=== PATIENT | female | born 1970 | race Caucasian/White ===

== ENCOUNTER 2022-08-18 01:43 | Inpatient (IN) ==
[2022-08-18] MEDS ORDERED: LACTATED RINGERS 1,000 ML IV ONE (01:54)
[2022-08-18 02:24] LABS: POC Calcium, Ionized 1.14 (1.16-1.32); POC Creatinine 0.8 (0.6-1.2); POC Potassium 4.2 (3.3-5.1)
[2022-08-18] MEDS ORDERED: VANCOMYCIN 1,500 MG in 0.9 % SODIUM CHLORIDE 500 ML IV ONE (02:26)
[2022-08-18] MEDS ORDERED: PIPERACILLIN SODIUM/TAZOBACTAM 3.375 GM in DEXTROSE 5% IN WATER 50 ML IV ONE (02:26)
[2022-08-18 02:55] LABS: Basophils # (Auto) 0.03 K/mcL (0.00-0.30); Basophils % (Auto) 0.2 % (0.0-2.0); Eosinophils # (Auto) 0 K/mcL (0.00-0.70); Eosinophils % (Auto) 0 % (0.0-7.0); Hematocrit 37.7 % (34.1-44.9); Hemoglobin 10.7 g/dL (11.2-15.7); Lymphocytes # (Auto) 0.55 K/mcL (1.50-4.80); Lymphocytes % (Auto) 4.3 % (15.5-49.0); Mean Cell Volume 90.2 fL (80.0-100.0); Mean Corpuscular HGB Conc 28.4 g/dL (31.0-36.0); Mean Platelet Volume 9.8 fL (8.8-12.5); Monocytes # (Auto) 0.37 K/mcL (0.10-0.90); Monocytes % (Auto) 2.9 % (1.0-12.0); Platelet Count 286 K/mcL (140-440); RBC 4.18 M/mcL (3.59-5.38); Red Cell Distribution Width 16.1 % (11.5-14.5); WBC 12.8 K/mcL (4.5-11.0)
--- NOTE | 2022-08-18 02:56 | XRay Report ---
CLINICAL INFORMATION: Fever COPD COMPARISON: 04/27/2006 TECHNIQUE: Portable FINDINGS: Moderate cardiomegaly is increased. The pulmonary vasculature is moderately distended and there is mild peribronchial vascular edema. Small right pleural effusion noted. IMPRESSION: Moderate CHF or volume overload. Note: If there is any clinical support for this diagnosis, consider diuretic trial and repeat two-view upright chest x-ray to better evaluate the lungs Interpreted and Authenticated by: Alexandro Tariq 08/18/22
[2022-08-18 03:11] LABS: ALT/SGPT 11 U/L (<40); AST/SGOT 12 U/L (<32); Albumin 3.5 gm/dL (3.2-5.2); Alkaline Phosphatase 134 U/L (39-117); Bilirubin,Direct 0.3 mg/dL (<0.3); Globulin 4.5 gm/dL (2.2-3.7)
[2022-08-18] MEDS ORDERED: ACETAMINOPHEN 325 MG TABLET PO ONE (03:29)
[2022-08-18] MEDS ORDERED: LABETALOL 5 MG/ML ML IV ONE (03:29)
[2022-08-18] MEDS ORDERED: oxyCODONE IR 5 MG TABLET PO ONE (04:07)
--- NOTE | 2022-08-18 04:21 | Emergency Department Note ---
Abdominal Pain HPI General Chief Complaint: Abdominal Pain Stated Complaint: sepsis Time Seen by Provider: 08/18/22 01:45 Source: patient and family Mode of arrival: wheelchair Limitations: no limitations History of Present Illness HPI Narrative: Narrative: This is a 52-year-old female with a history of rheumatoid and psoriatic arthritis, type 2 diabetes, hypertension, obesity, oxygen dependent presents to the emergency department with fever, weakness, worsening wounds to her lower extremity and diarrhea. Patient denies any abdominal pain. She reports chronic cough not significantly changed from her baseline. No new urinary changes. Patient's only medications she is taking currently is oxycodone 30 mg and bisoprololhydrochlorothiazide. Patient states that she has a history of MRSA infection. Patient states her symptoms have been going on for about the last week or so she did not want to come to the doctor but her partner noticed increased weakness and some intermittent confusion which he states is similar to when she had sepsis last so he brought her in for evaluation. Related Data Home Medications Medication Instructions Recorded Confirmed cetirizine 10 mg tablet 10 mg PO QDAY 04/20/18 08/18/22 oxycodone 30 mg tablet 30 mg PO Q4-6H PRN Pain 04/20/18 08/18/22 albuterol sulfate 90 mcg/actuation 2 puff inhalation Q6H PRN 05/13/21 08/18/22 aerosol inhaler (Proventil HFA) Shortness Of Breath hydrocortisone 1 % topical cream 1 applic topical BID PRN itching 05/13/21 08/18/22 (Anti-Itch (hydrocortisone)) ibuprofen 800 mg tablet 600 - 800 mg PO Q6 PRN Pain 05/13/21 08/18/22 metformin 500 mg tablet,extended 1,000 mg PO BID 05/13/21 08/18/22 release 24 hr nystatin 100,000 unit/gram topical 1 applic topical BID 05/13/21 08/18/22 cream ondansetron 4 mg disintegrating 4 mg PO .Q4-6H PRN Nausea 05/13/21 08/18/22 tablet magnesium hydroxide 400 mg/5 mL 30 ml PO QDAY PRN Constipation 08/18/22 08/18/22 oral suspension (Milk of Magnesia) Previous Rx's Medication Instructions Recorded ceftriaxone 2 gram solution for 2 g IV Q24H Wound infecti 12 days 08/24/22 injection #25 ea oxycodone 10 mg tablet 10 mg PO Q4H PRN Pain #30 tabs 08/24/22 Allergies Allergy/AdvReac Type Severity Reaction Status Date / Time Sulfa (Sulfonamide Allergy Mild Hives Verified 08/18/22 11:21 Antibiotics) Cyclobenzaprine Allergy Unknown Unknown Verified 08/18/22 10:20 morphine AdvReac Intermediate Hallucinati Verified 08/18/22 11:21 ons fentanyl AdvReac Mild Headache Verified 08/18/22 11:21 tramadol AdvReac Mild Headache Verified 08/18/22 11:21 Review of Systems ROS ROS Narrative: Narrative: PFSH Narrative Patient History Narrative: Narrative: Medical/Surgical/Family History All Active Problems (Updated 08/22/22 @ 17:53 by Jud Kirk MD) History of MRSA infection (Acute) Abscess of foot including toes (Acute) Bacteremia due to Streptococcus (Acute) Cellulitis (Acute) Sepsis (Acute) Heart murmur (Chronic) 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) Restrictive lung disease (Chronic) Anxiety disorder (Chronic) Dermatophytosis (Chronic) Dependence on supplemental oxygen (Chronic) Foot pain, right (Chronic) Bipolar disorder, unspecified (Chronic) High risk medication use (Chronic) Groin rash (Chronic) Paresthesia of both hands (Chronic) Sciatica (Chronic) Foot joint pain (Chronic) Hand joint pain (Chronic) Agoraphobia (Chronic) Migraine (Chronic) Osteoarthritis (Chronic) Thyroid nodule (Chronic) Atopic eczema (Chronic) Herpes simplex (Chronic) Tobacco use (Chronic) long term current use of non-steroidal anti-inflammatories (NSAID) (Chronic) long term (current) use of opiate analgesic (Chronic) Moderate major depression (Chronic) Lumbar radiculitis (Chronic) Degenerative disc disease, lumbar (Chronic) Degenerative disc disease, thoracic (Chronic) Primary generalized (osteo)arthritis (Chronic) Antinuclear factor positive (Chronic) Sicca syndrome (Chronic) Psoriatic arthritis (Chronic) Allergic rhinitis (Chronic) COPD (chronic obstructive pulmonary disease) (Chronic) GERD (gastroesophageal reflux disease) (Chronic) Hypothyroidism (Chronic) Aortic stenosis (Chronic) Diastolic dysfunction (Chronic) Hypertension (Chronic) Diabetes mellitus type II, uncontrolled (Chronic) Rheumatoid arthritis (Chronic) Medical History Agoraphobia Allergic rhinitis Antinuclear factor positive Anxiety disorder Aortic stenosis Atopic eczema Bipolar disorder, unspecified COPD (chronic obstructive pulmonary disease) Degenerative disc disease, lumbar Degenerative disc disease, thoracic Dependence on supplemental oxygen Dermatophytosis Diabetes mellitus type II, uncontrolled Diastolic dysfunction Disorder of intervertebral disc of lumbar spine Foot joint pain Foot pain, right GERD (gastroesophageal reflux disease) Groin rash Hand joint pain Heart murmur Herpes simplex High risk medication use Hypertension Hypothyroidism long term (current) use of opiate analgesic long term current use of non-steroidal anti-inflammatories (NSAID) Lumbar radiculitis Migraine Moderate major depression Osteoarthritis Paresthesia of both hands Primary generalized (osteo)arthritis Psoriatic arthritis Restrictive lung disease Rheumatoid arthritis Sciatica Sicca syndrome Thyroid nodule Tobacco use Surgical History History of appendectomy (~1983) History of arthroscopy of right knee History of cholecystectomy (~1998) History of D&C Multiple History of left oophorectomy (~1983) History of shoulder surgery (~1996) History of thyroidectomy (~1991) History of tonsillectomy (~1983) Family History Father , 60 Heart disease Heart disease Substance abuse, Onset Age: 14 Obesity, Onset Age: 16 Myocardial infarction, Onset Age: 35 Hypertension, Onset Age: 40 Sleep disorder, Onset Age: 40 Sister Kidney disease Hypertension, Onset Age: 30 Myocardial infarction, Onset Age: 40 Obesity, Onset Age: 18 Heart disease, Onset Age: 35 Arthritis, Onset Age: 35 Substance abuse, Onset Age: 13 Disorder of thyroid gland, Onset Age: 14 Sleep disorder, Onset Age: 35 Mother , age 69 Crohn's disease Multiple sclerosis, Onset Age: 29 Myocardial infarction, Onset Age: 42 Arthritis, Onset Age: 30 Disorder of thyroid gland, Onset Age: 25 Disorder of lung, Onset Age: 40 Heart disease, Onset Age: 42 Uncle Substance abuse Maternal Diabetes mellitus, Onset Age: 55 Maternal Grandmother , age 87 Anxiety disorder, Onset Age: 8 Maternal Cerebrovascular accident, Onset Age: 87 Maternal Arthritis, Onset Age: 40 Maternal Dementia, Onset Age: 82 Maternal Disorder of thyroid gland, Onset Age: 50 Maternal Osteoporosis Maternal and paternal Obesity Maternal and paternal Hypertension, Onset Age: 50 Paternal Heart disease, Onset Age: 50 Paternal Disorder of lung, Onset Age: 40 Paternal Brother Substance abuse, Onset Age: 14 Disorder of thyroid gland, Onset Age: 14 Aunt Migraine, Onset Age: 30 Maternal Anxiety disorder, Onset Age: 5 Maternal Obesity, Onset Age: 30 Maternal Depressive disorder, Onset Age: 15 Maternal Hypertension, Onset Age: 50 Maternal Osteoporosis, Onset Age: 50 Maternal Substance abuse, Onset Age: 12 Maternal Arthritis, Onset Age: 35 Maternal Family/Other , age 34 Kidney disease Malignant neoplastic disease, Onset Age: 32 Hypertension Substance abuse Malignant tumor of cervix Obesity Grandfather , age 72 Myocardial infarction, Onset Age: 55 Maternal Malignant neoplastic disease Maternal Heart disease Maternal Arthritis Maternal Social History Smoking Status: Former smoker Alcohol Intake Frequency: does not drink Substance Use: does not use Exam Narrative Narrative: Narrative: Vital signs noted General: Awake. Alert. Mild distress, appears to be chronically ill HEENT: NCAT PERRL EOMI. No conjunctivitis. Membranes moist. Neck: Supple, trachea midline Cardiovascular: Tachycardic. Respiratory: No respiratory distress. Breath sounds equal. Lungs clear. Gastrointestinal: Soft. No tenderness Musculoskeletal: No pain. No soft tissue swelling. Good ROM. No signs injury Skin: Open wounds to the bilateral lower extremities, there is 1+ pitting edema there is surrounding cellulitic changes that extends up into the thigh Neurologic: Alert and oriented x3 moves all extremities equally and fully, speech is fluent face is symmetric General Limitations: no limitations Course Vital Signs Vital signs: Vital Signs Temperature 102.4 F H 08/18/22 01:59 Pulse Rate 120 H 08/18/22 01:59 Respiratory Rate 24 H 08/18/22 01:59 Blood Pressure 184/96 08/18/22 01:59 Pulse Oximetry (%) 95 08/18/22 01:59 Oxygen Delivery Method Room Air 08/18/22 01:59 Oxygen Flow Rate (L/min) 2 08/18/22 01:59 Temperature 98.1 F 08/24/22 13:39 Pulse Rate 65 08/24/22 13:39 Respiratory Rate 18 08/24/22 13:39 Blood Pressure 175/70 08/24/22 13:39 Pulse Oximetry (%) 100 08/24/22 13:39 Oxygen Delivery Method Nasal Cannula 08/24/22 13:39 Oxygen Flow Rate (L/min) 3 08/24/22 13:39 MDM MDM Narrative Medical decision making narrative: ChandrikaNarrative: Patient presents to the emergency department with confusion, fever. Upon arrival she is tachycardic, tachypneic, febrile concerning for sepsis. Patient was treated with Tylenol, blood cultures were drawn she was started on Vanco and Zosyn. Differential diagnosis includes but is not limited to urinary tract infection, cellulitis, pneumonia. Patient CBC shows white blood cell count of 12,000 with left shift 92% neutrophils. Her CMP shows BUN of 26 with a creatinine of 1.8. Patient's procalcitonin is 0.10, lactate is not elevated patient has an otherwise reassuring blood gas. Patient's COVID, influenza testing are negative. Patient's urinalysis is not indicative of infection. Chest x-ray shows pulmonary vascular congestion. There is no pleural effusions. I have reviewed this imaging. Patient was triaged as abdominal pain however she did not have any abdominal pain throughout the emergency department stay she had some diarrhea but no recent antibiotic use to suspect C. difficile. Suspect her fever is from cellulitis. Lab Data 08/18/22 02:15 Labs: Lab Results 08/18/22 08/18/22 08/18/22 Range/Units 02:15 02:15 02:15 WBC 12.8 H (4.5-11.0) K/mcL RBC 4.18 (3.59-5.38) M/mcL Hgb 10.7 L (11.2-15.7) g/dL Hct 37.7 (34.1-44.9) % POC Hct (36-48) MCV 90.2 (80.0-100.0) fL MCH 25.6 L (26.0-34.0) pg MCHC 28.4 L (31.0-36.0) g/dL RDW 16.1 H (11.5-14.5) % Plt Count 286 (140-440) K/mcL MPV 9.8 (8.8-12.5) fL Immature Gran % (Auto) 0.6 H (0.0-0.5) % Neut % (Auto) 92.0 H (38.0-78.0) % Lymph % (Auto) 4.3 L (15.5-49.0) % Cloud % (Auto) 2.9 (1.0-12.0) % Eos % (Auto) 0 (0.0-7.0) % Baso % (Auto) 0.2 (0.0-2.0) % Lymph # (Auto) 0.55 L (1.50-4.80) K/mcL Cloud # (Auto) 0.37 (0.10-0.90) K/mcL Eos # (Auto) 0 (0.00-0.70) K/mcL Baso # (Auto) 0.03 (0.00-0.30) K/mcL Immature Gran # 0.08 H (0.00-0.05) K/mcl Absolute Neutrophils 11.79 H (1.80-8.00) K/mcL ESR (0-30) mm/hr POC VBG pH (7.32-7.42) POC VBG pCO2 at Temp (41-51) POC VBG pO2 (25-40) POC VBG HCO3 (24-28) POC VBG Total CO2 (25-29) POC Venous O2 Sat (40-70) POC VBG Base Excess (-2-2) VBG Lactic Acid (0.5-2) POC Sodium (133-145) POC Potassium (3.3-5.1) POC Chloride (96-108) POC Total CO2 (22-30) POC BUN (6-20) POC Creatinine (0.6-1.2) POC Glucose (70-105) Hemoglobin A1c Estim Average Glucose POC WB Ioniz Calcium (1.16-1.32) Total Bilirubin 1.0 (0.1-1.0) mg/dL Direct Bilirubin 0.3 H (<0.3) mg/dL AST 12 (<32) U/L ALT 11 (<40) U/L Alkaline Phosphatase 134 H (39-117) U/L C-Reactive Protein (0.03-0.80) mg/dL NT-Pro-B Natriuret Pep (<125.0) pg/mL Total Protein 8.0 (5.9-8.4) gm/dL Albumin 3.5 (3.2-5.2) gm/dL Globulin 4.5 H (2.2-3.7) gm/dL Lipase 19 (7-60) U/L Procalcitonin 0.10 H (<0.10) ng/mL TSH (0.27-5.01) uIU/mL Urine Color Urine Appearance (Clear) Urine pH (5.0-9.0) Ur Specific [place] (1.000-1.035) Urine Protein (Negative) mg/dL Urine Glucose (UA) (Negative) mg/dL Urine Ketones (Negative) mg/dL Urine Occult Blood (Negative) mg/dL Urine Nitrate (Negative) Urine Bilirubin (Negative) mg/dL Urine Urobilinogen mg/dL Ur Leukocyte Esterase (Negative) /uL Urine RBC (0-3) /hpf Urine WBC (0-4) /hpf Ur Squamous Epith Cells (0-4) /hpf Urine Bacteria (0) /hpf Urine Mucus (None) /hpf Ur Culture Indicated? Urine Opiates Screen Ur Opiates Confirm Ur Oxycodone Screen U Oxycod/Oxymor Confirm Urine Methadone Screen Ur Methadone Confirm Ur Barbiturates Screen Ur Barbiturate Confirm Ur Phencyclidine Scrn Urine PCP Confirm Ur Amphetamines Screen U Amphetamines Confirm U Benzodiazepines Scrn Ur Benzodiazepine, Qnt Urine Cocaine Screen Urine Cocaine Confirm U Cannabinoids Confirm U Marijuana (THC) Screen 08/18/22 08/18/22 08/18/22 Range/Units 02:15 02:15 02:15 WBC (4.5-11.0) K/mcL RBC (3.59-5.38) M/mcL Hgb (11.2-15.7) g/dL Hct (34.1-44.9) % POC Hct (36-48) MCV (80.0-100.0) fL MCH (26.0-34.0) pg MCHC (31.0-36.0) g/dL RDW (11.5-14.5) % Plt Count (140-440) K/mcL MPV (8.8-12.5) fL Immature Gran % (Auto) (0.0-0.5) % Neut % (Auto) (38.0-78.0) % Lymph % (Auto) (15.5-49.0) % Cloud % (Auto) (1.0-12.0) % Eos % (Auto) (0.0-7.0) % Baso % (Auto) (0.0-2.0) % Lymph # (Auto) (1.50-4.80) K/mcL Cloud # (Auto) (0.10-0.90) K/mcL Eos # (Auto) (0.00-0.70) K/mcL Baso # (Auto) (0.00-0.30) K/mcL Immature Gran # (0.00-0.05) K/mcl Absolute Neutrophils (1.80-8.00) K/mcL ESR 76 H (0-30) mm/hr POC VBG pH (7.32-7.42) POC VBG pCO2 at Temp (41-51) POC VBG pO2 (25-40) POC VBG HCO3 (24-28) POC VBG Total CO2 (25-29) POC Venous O2 Sat (40-70) POC VBG Base Excess (-2-2) VBG Lactic Acid (0.5-2) POC Sodium (133-145) POC Potassium (3.3-5.1) POC Chloride (96-108) POC Total CO2 (22-30) POC BUN (6-20) POC Creatinine (0.6-1.2) POC Glucose (70-105) Hemoglobin A1c Estim Average Glucose POC WB Ioniz Calcium (1.16-1.32) Total Bilirubin (0.1-1.0) mg/dL Direct Bilirubin (<0.3) mg/dL AST (<32) U/L ALT (<40) U/L Alkaline Phosphatase (39-117) U/L C-Reactive Protein (0.03-0.80) mg/dL NT-Pro-B Natriuret Pep 895.2 H (<125.0) pg/mL Total Protein (5.9-8.4) gm/dL Albumin (3.2-5.2) gm/dL Globulin (2.2-3.7) gm/dL Lipase (7-60) U/L Procalcitonin (<0.10) ng/mL TSH 0.43 (0.27-5.01) uIU/mL Urine Color Urine Appearance (Clear) Urine pH (5.0-9.0) Ur Specific [place] (1.000-1.035) Urine Protein (Negative) mg/dL Urine Glucose (UA) (Negative) mg/dL Urine Ketones (Negative) mg/dL Urine Occult Blood (Negative) mg/dL Urine Nitrate (Negative) Urine Bilirubin (Negative) mg/dL Urine Urobilinogen mg/dL Ur Leukocyte Esterase (Negative) /uL Urine RBC (0-3) /hpf Urine WBC (0-4) /hpf Ur Squamous Epith Cells (0-4) /hpf Urine Bacteria (0) /hpf Urine Mucus (None) /hpf Ur Culture Indicated? Urine Opiates Screen Ur Opiates Confirm Ur Oxycodone Screen U Oxycod/Oxymor Confirm Urine Methadone Screen Ur Methadone Confirm Ur Barbiturates Screen Ur Barbiturate Confirm Ur Phencyclidine Scrn Urine PCP Confirm Ur Amphetamines Screen U Amphetamines Confirm U Benzodiazepines Scrn Ur Benzodiazepine, Qnt Urine Cocaine Screen Urine Cocaine Confirm U Cannabinoids Confirm U Marijuana (THC) Screen 08/18/22 08/18/22 08/18/22 Range/Units 02:15 02:15 02:19 WBC (4.5-11.0) K/mcL RBC (3.59-5.38) M/mcL Hgb (11.2-15.7) g/dL Hct (34.1-44.9) % POC Hct 37.0 (36-48) MCV (80.0-100.0) fL MCH (26.0-34.0) pg MCHC (31.0-36.0) g/dL RDW (11.5-14.5) % Plt Count (140-440) K/mcL MPV (8.8-12.5) fL Immature Gran % (Auto) (0.0-0.5) % Neut % (Auto) (38.0-78.0) % Lymph % (Auto) (15.5-49.0) % Cloud % (Auto) (1.0-12.0) % Eos % (Auto) (0.0-7.0) % Baso % (Auto) (0.0-2.0) % Lymph # (Auto) (1.50-4.80) K/mcL Cloud # (Auto) (0.10-0.90) K/mcL Eos # (Auto) (0.00-0.70) K/mcL Baso # (Auto) (0.00-0.30) K/mcL Immature Gran # (0.00-0.05) K/mcl Absolute Neutrophils (1.80-8.00) K/mcL ESR (0-30) mm/hr POC VBG pH (7.32-7.42) POC VBG pCO2 at Temp (41-51) POC VBG pO2 (25-40) POC VBG HCO3 (24-28) POC VBG Total CO2 (25-29) POC Venous O2 Sat (40-70) POC VBG Base Excess (-2-2) VBG Lactic Acid (0.5-2) POC Sodium 139 (133-145) POC Potassium 4.2 (3.3-5.1) POC Chloride 99 (96-108) POC Total CO2 32.0 H (22-30) POC BUN 26 H (6-20) POC Creatinine 0.8 (0.6-1.2) POC Glucose 188 H (70-105) Hemoglobin A1c TNP Estim Average Glucose TNP POC WB Ioniz Calcium 1.14 L (1.16-1.32) Total Bilirubin (0.1-1.0) mg/dL Direct Bilirubin (<0.3) mg/dL AST (<32) U/L ALT (<40) U/L Alkaline Phosphatase (39-117) U/L C-Reactive Protein 10.40 H (0.03-0.80) mg/dL NT-Pro-B Natriuret Pep (<125.0) pg/mL Total Protein (5.9-8.4) gm/dL Albumin (3.2-5.2) gm/dL Globulin (2.2-3.7) gm/dL Lipase (7-60) U/L Procalcitonin (<0.10) ng/mL TSH (0.27-5.01) uIU/mL Urine Color Urine Appearance (Clear) Urine pH (5.0-9.0) Ur Specific [place] (1.000-1.035) Urine Protein (Negative) mg/dL Urine Glucose (UA) (Negative) mg/dL Urine Ketones (Negative) mg/dL Urine Occult Blood (Negative) mg/dL Urine Nitrate (Negative) Urine Bilirubin (Negative) mg/dL Urine Urobilinogen mg/dL Ur Leukocyte Esterase (Negative) /uL Urine RBC (0-3) /hpf Urine WBC (0-4) /hpf Ur Squamous Epith Cells (0-4) /hpf Urine Bacteria (0) /hpf Urine Mucus (None) /hpf Ur Culture Indicated? Urine Opiates Screen Ur Opiates Confirm Ur Oxycodone Screen U Oxycod/Oxymor Confirm Urine Methadone Screen Ur Methadone Confirm Ur Barbiturates Screen Ur Barbiturate Confirm Ur Phencyclidine Scrn Urine PCP Confirm Ur Amphetamines Screen U Amphetamines Confirm U Benzodiazepines Scrn Ur Benzodiazepine, Qnt Urine Cocaine Screen Urine Cocaine Confirm U Cannabinoids Confirm U Marijuana (THC) Screen 08/18/22 08/18/22 08/18/22 Range/Units 02:23 04:22 04:22 WBC (4.5-11.0) K/mcL RBC (3.59-5.38) M/mcL Hgb (11.2-15.7) g/dL Hct (34.1-44.9) % POC Hct (36-48) MCV (80.0-100.0) fL MCH (26.0-34.0) pg MCHC (31.0-36.0) g/dL RDW (11.5-14.5) % Plt Count (140-440) K/mcL MPV (8.8-12.5) fL Immature Gran % (Auto) (0.0-0.5) % Neut % (Auto) (38.0-78.0) % Lymph % (Auto) (15.5-49.0) % Cloud % (Auto) (1.0-12.0) % Eos % (Auto) (0.0-7.0) % Baso % (Auto) (0.0-2.0) % Lymph # (Auto) (1.50-4.80) K/mcL Cloud # (Auto) (0.10-0.90) K/mcL Eos # (Auto) (0.00-0.70) K/mcL Baso # (Auto) (0.00-0.30) K/mcL Immature Gran # (0.00-0.05) K/mcl Absolute Neutrophils (1.80-8.00) K/mcL ESR (0-30) mm/hr POC VBG pH 7.40 (7.32-7.42) POC VBG pCO2 at Temp 48.0 (41-51) POC VBG pO2 24 L (25-40) POC VBG HCO3 30.0 H (24-28) POC VBG Total CO2 31.0 H (25-29) POC Venous O2 Sat 41.0 (40-70) POC VBG Base Excess 5.0 H* (-2-2) VBG Lactic Acid 1.0 (0.5-2) POC Sodium (133-145) POC Potassium (3.3-5.1) POC Chloride (96-108) POC Total CO2 (22-30) POC BUN (6-20) POC Creatinine (0.6-1.2) POC Glucose (70-105) Hemoglobin A1c Estim Average Glucose POC WB Ioniz Calcium (1.16-1.32) Total Bilirubin (0.1-1.0) mg/dL Direct Bilirubin (<0.3) mg/dL AST (<32) U/L ALT (<40) U/L Alkaline Phosphatase (39-117) U/L C-Reactive Protein (0.03-0.80) mg/dL NT-Pro-B Natriuret Pep (<125.0) pg/mL Total Protein (5.9-8.4) gm/dL Albumin (3.2-5.2) gm/dL Globulin (2.2-3.7) gm/dL Lipase (7-60) U/L Procalcitonin (<0.10) ng/mL TSH (0.27-5.01) uIU/mL Urine Color Yellow Urine Appearance Hazy A (Clear) Urine pH 5.0 (5.0-9.0) Ur Specific [place] 1.024 (1.000-1.035) Urine Protein 30 A (Negative) mg/dL Urine Glucose (UA) Negative (Negative) mg/dL Urine Ketones 20 A (Negative) mg/dL Urine Occult Blood 0.20 (Negative) mg/dL Urine Nitrate Negative (Negative) Urine Bilirubin Negative (Negative) mg/dL Urine Urobilinogen Negative mg/dL Ur Leukocyte Esterase Negative (Negative) /uL Urine RBC 1 (0-3) /hpf Urine WBC 1 (0-4) /hpf Ur Squamous Epith Cells 6 H (0-4) /hpf Urine Bacteria Few A (0) /hpf Urine Mucus Few A (None) /hpf Ur Culture Indicated? No Urine Opiates Screen None detected Ur Opiates Confirm TNP Ur Oxycodone Screen None detected U Oxycod/Oxymor Confirm TNP Urine Methadone Screen None detected Ur Methadone Confirm TNP Ur Barbiturates Screen None detected Ur Barbiturate Confirm TNP Ur Phencyclidine Scrn None detected Urine PCP Confirm TNP Ur Amphetamines Screen None detected U Amphetamines Confirm TNP U Benzodiazepines Scrn None detected Ur Benzodiazepine, Qnt TNP Urine Cocaine Screen None detected Urine Cocaine Confirm TNP U Cannabinoids Confirm TNP U Marijuana (THC) Screen None detected ED POC Tests ED POC Tests: LOULOU - Influenza A Negative LOULOU - Influenza B Negative LOULOU - SARS Antigen Negative EKG Data EKG #1: EKG attestation: Yes I reviewed and interpreted this EKG., Yes There are no EKG findings of acute coronary syndrome and Yes This EKG will be read by kitchen work supervisor EKG results narrative: EKG per my interpretation shows a sinus rhythm with a rate of 90 normal axis, no evidence of acute ischemia, QTc is 448 Discharge Plan Patient/Caregiver Discharge Instructions Pt seen by [employer]ARD MACHINE/PA only: No Clinical Impression: Cellulitis, Sepsis Activity: increase activity as tolerated Patient Disposition: Xfer As Outpt/Obs ([facility]) Condition: Fair Discharge Date/Time: 08/18/22 09:11
[2022-08-18 05:19] LABS: Amphetamine Screen,Urine None detected; Barbiturate Screen,Urine None detected; Benzodiazepines Screen,Urine None detected; Cannabinoid Screen,Urine None detected; Cocaine Screen,Urine None detected; Opiate Screen,Urine None detected; Oxycodone, Urine Screen None detected; Phencyclidine Screen,Urine None detected
[2022-08-18 05:20] LABS: Appearance,Urine HAZY (Clear); Bacteria,Urine FEW /hpf (0); Bilirubin,Urine Negative (Negative); Color,Urine YELLOW; Culture Indicated,Urine No; Glucose,Urine (UA) Negative (Negative); Ketones,Urine 20 mg/dL (Negative); Leukocyte Esterase,Urine Negative /uL (Negative); Mucus,Urine FEW /hpf; Nitrate,Urine Negative (Negative); Protein,Urine 30 mg/dL (Negative); Specific Gravity,Urine 1.024 (1.000-1.035); Urine RBC 1 /hpf (0-3); Urine Squamous Epithelial Cell 6 /hpf (0-4); Urine WBC 1 /hpf (0-4); Urobilinogen,Urine Negative
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
--- NOTE | 2022-08-18 06:51 | EKG ---
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
[2022-08-18] MEDS ORDERED: LISINOPRIL 5 MG TABLET PO SCH (09:12)
[2022-08-18] MEDS ORDERED: LABETALOL 5 MG/ML ML IV PRN (09:12)
[2022-08-18] MEDS ORDERED: DEXTROSE 50% 50 ML VIAL IV PRN (09:12)
[2022-08-18] MEDS ORDERED: DEXTROSE 31 GM ORAL.SUSP PO PRN (09:12)
[2022-08-18] MEDS ORDERED: ONDANSETRON 4 MG/2 ML VIAL IV PRN (09:12)
[2022-08-18] MEDS ORDERED: VANCOMYCIN PER PHARMACY IV SCH (09:12)
[2022-08-18] MEDS ORDERED: ACETAMINOPHEN 325 MG TABLET PO PRN (09:12)
[2022-08-18] MEDS ORDERED: ALBUTEROL SULFATE 2.5 MG/3 ML NEBULIZER NEB PRN (09:12)
[2022-08-18] MEDS: oxyCODONE IR 5 MG TABLET PO PRN ×4 (09:38→22:12)
[2022-08-18] MEDS: DOCUSATE SODIUM 100 MG CAPSULE PO SCH ×3 (09:38→20:46)
[2022-08-18] MEDS: FUROSEMIDE 40 MG/4 ML VIAL IV SCH ×2 (09:38→16:34)
[2022-08-18] MEDS: ENOXAPARIN 40 MG/0.4 ML SYRINGE SQ SCH (09:39)
[2022-08-18] MEDS: INSULIN LISPRO 1 UNIT/0.01 ML UNIT SQ SCH ×4 (09:40→20:46)
[2022-08-18] MEDS: AMPICILLIN SODIUM/SULBACTAM NA 3 GM in 0.9 % SODIUM CHLORIDE 100 ML IV SCH ×3 (10:00→20:45)
[2022-08-18] MEDS: IPRATROPIUM/ALBUTEROL 3 ML AMPUL.NEB NEB SCH ×3 (10:26→18:43)
[2022-08-18] MEDS: KETOROLAC 15 MG/ML VIAL IV PRN (11:17)
[2022-08-18] MEDS: HYDROmorphone 0.5 MG/0.5 ML SYRINGE IV PRN ×3 (11:21→23:52)
[2022-08-18 11:30] LABS: Estimated Average Glucose(eAG) 177 mg/dL; Hemoglobin A1C 7.8 % Hgb (4.0-6.0)
[2022-08-18] MEDS: VANCOMYCIN 1,500 MG in 0.9 % SODIUM CHLORIDE 500 ML IV SCH ×2 (12:31→22:00)
[2022-08-18] MEDS: 0.9 % SODIUM CHLORIDE 10 ML SYRINGE IV SCH ×2 (14:07→23:16)
--- NOTE | 2022-08-18 15:23 | General Surgery Consult Note ---
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) Restrictive lung disease (Chronic) Anxiety disorder (Chronic) Dermatophytosis (Chronic) Dependence on supplemental oxygen (Chronic) Foot pain, right (Chronic) Bipolar disorder, unspecified (Chronic) High risk medication use (Chronic) Groin rash (Chronic) Paresthesia of both hands (Chronic) Sciatica (Chronic) Foot joint pain (Chronic) Hand joint pain (Chronic) Agoraphobia (Chronic) Migraine (Chronic) Osteoarthritis (Chronic) Thyroid nodule (Chronic) Atopic eczema (Chronic) Herpes simplex (Chronic) Tobacco use (Chronic) 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 (Chronic) Moderate major depression (Chronic) Lumbar radiculitis (Chronic) Degenerative disc disease, lumbar (Chronic) Degenerative disc disease, thoracic (Chronic) Primary generalized (osteo)arthritis (Chronic) Antinuclear factor positive (Chronic) Sicca syndrome (Chronic) Psoriatic arthritis (Chronic) Allergic rhinitis (Chronic) COPD (chronic obstructive pulmonary disease) (Chronic) GERD (gastroesophageal reflux disease) (Chronic) Hypothyroidism (Chronic) Aortic stenosis (Chronic) Diastolic dysfunction (Chronic) Hypertension (Chronic) Diabetes mellitus type II, uncontrolled (Chronic) Rheumatoid arthritis (Chronic) Medical History Agoraphobia Allergic rhinitis Antinuclear factor positive Anxiety disorder Aortic stenosis Atopic eczema Bipolar disorder, unspecified COPD (chronic obstructive pulmonary disease) Degenerative disc disease, lumbar Degenerative disc disease, thoracic Dependence on supplemental oxygen Dermatophytosis Diabetes mellitus type II, uncontrolled Diastolic dysfunction Disorder of intervertebral disc of lumbar spine Foot joint pain Foot pain, right GERD (gastroesophageal reflux disease) Groin rash Hand joint pain Heart murmur Herpes simplex High risk medication use Hypertension Hypothyroidism 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 of non-steroidal anti-inflammatories (NSAID) Lumbar radiculitis Migraine Moderate major depression Osteoarthritis Paresthesia of both hands Primary generalized (osteo)arthritis Psoriatic arthritis Restrictive lung disease Rheumatoid arthritis Sciatica Sicca syndrome Thyroid nodule Tobacco use Surgical History History of appendectomy (~1983) History of arthroscopy of right knee History of cholecystectomy (~1998) History of D&C Multiple History of left oophorectomy (~1983) History of shoulder surgery (~1996) History of thyroidectomy (~1991) History of tonsillectomy (~1983) Family History Father , 60 Heart disease Heart disease Substance abuse, Onset Age: 14 Obesity, Onset Age: 16 Myocardial infarction, Onset Age: 35 Hypertension, Onset Age: 40 Sleep disorder, Onset Age: 40 Sister Kidney disease Hypertension, Onset Age: 30 Myocardial infarction, Onset Age: 40 Obesity, Onset Age: 18 Heart disease, Onset Age: 35 Arthritis, Onset Age: 35 Substance abuse, Onset Age: 13 Disorder of thyroid gland, Onset Age: 14 Sleep disorder, Onset Age: 35 Mother , age 69 Crohn's disease Multiple sclerosis, Onset Age: 29 Myocardial infarction, Onset Age: 42 Arthritis, Onset Age: 30 Disorder of thyroid gland, Onset Age: 25 Disorder of lung, Onset Age: 40 Heart disease, Onset Age: 42 Uncle Substance abuse Maternal Diabetes mellitus, Onset Age: 55 Maternal Grandmother , age 87 Anxiety disorder, Onset Age: 8 Maternal Cerebrovascular accident, Onset Age: 87 Maternal Arthritis, Onset Age: 40 Maternal Dementia, Onset Age: 82 Maternal Disorder of thyroid gland, Onset Age: 50 Maternal Osteoporosis Maternal and paternal Obesity Maternal and paternal Hypertension, Onset Age: 50 Paternal Heart disease, Onset Age: 50 Paternal Disorder of lung, Onset Age: 40 Paternal Brother Substance abuse, Onset Age: 14 Disorder of thyroid gland, Onset Age: 14 Aunt Migraine, Onset Age: 30 Maternal Anxiety disorder, Onset Age: 5 Maternal Obesity, Onset Age: 30 Maternal Depressive disorder, Onset Age: 15 Maternal Hypertension, Onset Age: 50 Maternal Osteoporosis, Onset Age: 50 Maternal Substance abuse, Onset Age: 12 Maternal Arthritis, Onset Age: 35 Maternal Family/Other , age 34 Kidney disease Malignant neoplastic disease, Onset Age: 32 Hypertension Substance abuse Malignant tumor of cervix Obesity Grandfather , age 72 Myocardial infarction, Onset Age: 55 Maternal Malignant neoplastic disease Maternal Heart disease Maternal Arthritis Maternal Social History lives independently: Yes marital status: occupational status: disabled sexually active: No physical activity: none smoking status: Former smoker alcohol intake frequency: does not drink substance use type: does not use seatbelt use: always working smoke detector in home: Yes carbon monox detector in home: Yes firearms in home: No MEDS/ALLERGIES Home Medications and Allergies Home Medications Medication Instructions Recorded Confirmed Type cetirizine 10 mg tablet 10 mg PO QDAY 04/20/18 08/18/22 History oxycodone 30 mg tablet 30 mg PO Q4-6H PRN Pain 04/20/18 08/18/22 History albuterol sulfate 90 mcg/actuation 2 puff inhalation Q6H PRN 05/13/21 08/18/22 History aerosol inhaler (Proventil HFA) Shortness Of Breath hydrocortisone 1 % topical cream 1 applic topical BID PRN itching 05/13/21 08/18/22 History (Anti-Itch (hydrocortisone)) ibuprofen 800 mg tablet 600 - 800 mg PO Q6 PRN Pain 05/13/21 08/18/22 History metformin 500 mg tablet,extended 1,000 mg PO BID 05/13/21 08/18/22 History release 24 hr nystatin 100,000 unit/gram topical 1 applic topical BID 05/13/21 08/18/22 History cream ondansetron 4 mg disintegrating 4 mg PO .Q4-6H PRN Nausea 05/13/21 08/18/22 History tablet magnesium hydroxide 400 mg/5 mL 30 ml PO QDAY PRN Constipation 08/18/22 08/18/22 History oral suspension (Milk of Magnesia) Allergies Allergy/AdvReac Type Severity Reaction Status Date / Time Sulfa (Sulfonamide Allergy Mild Hives Verified 08/18/22 11:21 Antibiotics) Cyclobenzaprine Allergy Unknown Unknown Verified 08/18/22 10:20 morphine AdvReac Intermediate Hallucinati Verified 08/18/22 11:21 ons fentanyl AdvReac Mild Headache Verified 08/18/22 11:21 tramadol AdvReac Mild Headache Verified 08/18/22 11:21 Physical Examination Vital Signs Vital signs: Temp Pulse Resp BP Pulse Ox O2 Del Method O2 Flow Rate 98.1 F 76 20 191/61 97 Nasal Cannula 2 08/18/22 12:00 08/18/22 12:44 08/18/22 12:00 08/18/22 12:33 08/18/22 12:44 08/18/22 10:18 08/18/22 10:18 Results Labs 08/18/22 02:15 Labs: Abnormal lab results 08/18/22 08/18/22 08/18/22 Range/Units 02:15 02:15 02:15 WBC 12.8 H (4.5-11.0) K/mcL Hgb 10.7 L (11.2-15.7) g/dL MCH 25.6 L (26.0-34.0) pg MCHC 28.4 L (31.0-36.0) g/dL RDW 16.1 H (11.5-14.5) % Immature Gran % (Auto) 0.6 H (0.0-0.5) % Neut % (Auto) 92.0 H (38.0-78.0) % Lymph % (Auto) 4.3 L (15.5-49.0) % Lymph # (Auto) 0.55 L (1.50-4.80) K/mcL Immature Gran # 0.08 H (0.00-0.05) K/mcl Absolute Neutrophils 11.79 H (1.80-8.00) K/mcL ESR (0-30) mm/hr POC VBG pO2 (25-40) POC VBG HCO3 (24-28) POC VBG Total CO2 (25-29) POC VBG Base Excess (-2-2) POC Total CO2 (22-30) POC BUN (6-20) POC Glucose (70-105) Hemoglobin A1c (4.0-6.0) % Hgb POC WB Ioniz Calcium (1.16-1.32) Direct Bilirubin 0.3 H (<0.3) mg/dL Alkaline Phosphatase 134 H (39-117) U/L C-Reactive Protein (0.03-0.80) mg/dL NT-Pro-B Natriuret Pep (<125.0) pg/mL Globulin 4.5 H (2.2-3.7) gm/dL Procalcitonin 0.10 H (<0.10) ng/mL Urine Appearance (Clear) Urine Protein (Negative) mg/dL Urine Ketones (Negative) mg/dL Ur Squamous Epith Cells (0-4) /hpf Urine Bacteria (0) /hpf Urine Mucus (None) /hpf 08/18/22 08/18/22 08/18/22 Range/Units 02:15 02:15 02:15 WBC (4.5-11.0) K/mcL Hgb (11.2-15.7) g/dL MCH (26.0-34.0) pg MCHC (31.0-36.0) g/dL RDW (11.5-14.5) % Immature Gran % (Auto) (0.0-0.5) % Neut % (Auto) (38.0-78.0) % Lymph % (Auto) (15.5-49.0) % Lymph # (Auto) (1.50-4.80) K/mcL Immature Gran # (0.00-0.05) K/mcl Absolute Neutrophils (1.80-8.00) K/mcL ESR 76 H (0-30) mm/hr POC VBG pO2 (25-40) POC VBG HCO3 (24-28) POC VBG Total CO2 (25-29) POC VBG Base Excess (-2-2) POC Total CO2 (22-30) POC BUN (6-20) POC Glucose (70-105) Hemoglobin A1c (4.0-6.0) % Hgb POC WB Ioniz Calcium (1.16-1.32) Direct Bilirubin (<0.3) mg/dL Alkaline Phosphatase (39-117) U/L C-Reactive Protein 10.40 H (0.03-0.80) mg/dL NT-Pro-B Natriuret Pep 895.2 H (<125.0) pg/mL Globulin (2.2-3.7) gm/dL Procalcitonin (<0.10) ng/mL Urine Appearance (Clear) Urine Protein (Negative) mg/dL Urine Ketones (Negative) mg/dL Ur Squamous Epith Cells (0-4) /hpf Urine Bacteria (0) /hpf Urine Mucus (None) /hpf 08/18/22 08/18/22 08/18/22 Range/Units 02:19 02:23 04:22 WBC (4.5-11.0) K/mcL Hgb (11.2-15.7) g/dL MCH (26.0-34.0) pg MCHC (31.0-36.0) g/dL RDW (11.5-14.5) % Immature Gran % (Auto) (0.0-0.5) % Neut % (Auto) (38.0-78.0) % Lymph % (Auto) (15.5-49.0) % Lymph # (Auto) (1.50-4.80) K/mcL Immature Gran # (0.00-0.05) K/mcl Absolute Neutrophils (1.80-8.00) K/mcL ESR (0-30) mm/hr POC VBG pO2 24 L (25-40) POC VBG HCO3 30.0 H (24-28) POC VBG Total CO2 31.0 H (25-29) POC VBG Base Excess 5.0 H* (-2-2) POC Total CO2 32.0 H (22-30) POC BUN 26 H (6-20) POC Glucose 188 H (70-105) Hemoglobin A1c (4.0-6.0) % Hgb POC WB Ioniz Calcium 1.14 L (1.16-1.32) Direct Bilirubin (<0.3) mg/dL Alkaline Phosphatase (39-117) U/L C-Reactive Protein (0.03-0.80) mg/dL NT-Pro-B Natriuret Pep (<125.0) pg/mL Globulin (2.2-3.7) gm/dL Procalcitonin (<0.10) ng/mL Urine Appearance Hazy A (Clear) Urine Protein 30 A (Negative) mg/dL Urine Ketones 20 A (Negative) mg/dL Ur Squamous Epith Cells 6 H (0-4) /hpf Urine Bacteria Few A (0) /hpf Urine Mucus Few A (None) /hpf 08/18/22 Range/Units 10:40 WBC (4.5-11.0) K/mcL Hgb (11.2-15.7) g/dL MCH (26.0-34.0) pg MCHC (31.0-36.0) g/dL RDW (11.5-14.5) % Immature Gran % (Auto) (0.0-0.5) % Neut % (Auto) (38.0-78.0) % Lymph % (Auto) (15.5-49.0) % Lymph # (Auto) (1.50-4.80) K/mcL Immature Gran # (0.00-0.05) K/mcl Absolute Neutrophils (1.80-8.00) K/mcL ESR (0-30) mm/hr POC VBG pO2 (25-40) POC VBG HCO3 (24-28) POC VBG Total CO2 (25-29) POC VBG Base Excess (-2-2) POC Total CO2 (22-30) POC BUN (6-20) POC Glucose (70-105) Hemoglobin A1c 7.8 H (4.0-6.0) % Hgb POC WB Ioniz Calcium (1.16-1.32) Direct Bilirubin (<0.3) mg/dL Alkaline Phosphatase (39-117) U/L C-Reactive Protein (0.03-0.80) mg/dL NT-Pro-B Natriuret Pep (<125.0) pg/mL Globulin (2.2-3.7) gm/dL Procalcitonin (<0.10) ng/mL Urine Appearance (Clear) Urine Protein (Negative) mg/dL Urine Ketones (Negative) mg/dL Ur Squamous Epith Cells (0-4) /hpf Urine Bacteria (0) /hpf Urine Mucus (None) /hpf Diabetes panel 08/18/22 08/18/22 08/18/22 Range/Units 02:15 02:15 10:40 Hemoglobin A1c TNP 7.8 H AST 12 (<32) U/L ALT 11 (<40) U/L Alkaline Phosphatase 134 H (39-117) U/L Total Protein 8.0 (5.9-8.4) gm/dL Albumin 3.5 (3.2-5.2) gm/dL Thyroid panel 08/18/22 Range/Units 02:15 TSH 0.43 (0.27-5.01) uIU/mL Calcium panel 08/18/22 Range/Units 02:15 Albumin 3.5 (3.2-5.2) gm/dL Pituitary panel 08/18/22 Range/Units 02:15 TSH 0.43 (0.27-5.01) uIU/mL Adrenal panel 08/18/22 Range/Units 02:15 Total Bilirubin 1.0 (0.1-1.0) mg/dL AST 12 (<32) U/L ALT 11 (<40) U/L Alkaline Phosphatase 134 H (39-117) U/L Total Protein 8.0 (5.9-8.4) gm/dL Albumin 3.5 (3.2-5.2) gm/dL All other labs normal. A/P Narrative A/P Narrative: Assessment: Acute exacerbation of Chronic conditions. VLU, both legs. Venous Hypertension PAD Lymphedema Open wounds RIGHT 2nd toe Plan of Treatment: Plan: Initial conservative management. Monitor response. Consult wound care nurse MIST with VASHE both legs QD Bacitracin, Adaptic, ABD pad,Kerlix. Will be following patient during her hospitalization. Further recommendations as condition evolves. Time Spent With Patient Time: Total time spent is greater than 50% in coordination of care (as documented) at patient's floor/unit and/or counseling patient:
--- NOTE | 2022-08-18 18:17 | General Surgery Consult Note ---
HPI Date of Consult Consult Date: 08/18/22 Requesting physician: Fadi Valderrama Primary Care Provider: Reanna Morris PA-C Consult Narrative Chief complaint: CSSSI, Cellulits of legs, Infected wounds SEPSIS Reason for consult: Wound care. Evaluation and treatment. cc:: I reviewed this patient's admission details pertaining to this hospitalization. Saw patient in Room 119 along with Dennis Maynard RN, Wound care Nurse / Rotary Cutter Operator. Subsequently reviewed plan of care with Dr. Valderrama. Hospitalist Physician. CC: Fadi Valderrama MD Review of Systems All systems: reviewed and no additional remarkable complaints except as stated (Frequent skin and skin structure infections, ulcers, poor healing in context of morbid obesity. 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) Restrictive lung disease (Chronic) Anxiety disorder (Chronic) Dermatophytosis (Chronic) Dependence on supplemental oxygen (Chronic) Foot pain, right (Chronic) Bipolar disorder, unspecified (Chronic) High risk medication use (Chronic) Groin rash (Chronic) Paresthesia of both hands (Chronic) Sciatica (Chronic) Foot joint pain (Chronic) Hand joint pain (Chronic) Agoraphobia (Chronic) Migraine (Chronic) Osteoarthritis (Chronic) Thyroid nodule (Chronic) Atopic eczema (Chronic) Herpes simplex (Chronic) Tobacco use (Chronic) MCC current use of non-steroidal anti-inflammatories (NSAID) (Chronic) MCC (current) use of opiate analgesic (Chronic) Moderate major depression (Chronic) Lumbar radiculitis (Chronic) Degenerative disc disease, lumbar (Chronic) Degenerative disc disease, thoracic (Chronic) Primary generalized (osteo)arthritis (Chronic) Antinuclear factor positive (Chronic) Sicca syndrome (Chronic) Psoriatic arthritis (Chronic) Allergic rhinitis (Chronic) COPD (chronic obstructive pulmonary disease) (Chronic) GERD (gastroesophageal reflux disease) (Chronic) Hypothyroidism (Chronic) Aortic stenosis (Chronic) Diastolic dysfunction (Chronic) Hypertension (Chronic) Diabetes mellitus type II, uncontrolled (Chronic) Rheumatoid arthritis (Chronic) Medical History Agoraphobia Allergic rhinitis Antinuclear factor positive Anxiety disorder Aortic stenosis Atopic eczema Bipolar disorder, unspecified COPD (chronic obstructive pulmonary disease) Degenerative disc disease, lumbar Degenerative disc disease, thoracic Dependence on supplemental oxygen Dermatophytosis Diabetes mellitus type II, uncontrolled Diastolic dysfunction Disorder of intervertebral disc of lumbar spine Foot joint pain Foot pain, right GERD (gastroesophageal reflux disease) Groin rash Hand joint pain Heart murmur Herpes simplex High risk medication use Hypertension Hypothyroidism MCC (current) use of opiate analgesic MCC current use of non-steroidal anti-inflammatories (NSAID) Lumbar radiculitis Migraine Moderate major depression Osteoarthritis Paresthesia of both hands Primary generalized (osteo)arthritis Psoriatic arthritis Restrictive lung disease Rheumatoid arthritis Sciatica Sicca syndrome Thyroid nodule Tobacco use Surgical History History of appendectomy (~1983) History of arthroscopy of right knee History of cholecystectomy (~1998) History of D&C Multiple History of left oophorectomy (~1983) History of shoulder surgery (~1996) History of thyroidectomy (~1991) History of tonsillectomy (~1983) Family History Father , 60 Heart disease Heart disease Substance abuse, Onset Age: 14 Obesity, Onset Age: 16 Myocardial infarction, Onset Age: 35 Hypertension, Onset Age: 40 Sleep disorder, Onset Age: 40 Sister Kidney disease Hypertension, Onset Age: 30 Myocardial infarction, Onset Age: 40 Obesity, Onset Age: 18 Heart disease, Onset Age: 35 Arthritis, Onset Age: 35 Substance abuse, Onset Age: 13 Disorder of thyroid gland, Onset Age: 14 Sleep disorder, Onset Age: 35 Mother , age 69 Crohn's disease Multiple sclerosis, Onset Age: 29 Myocardial infarction, Onset Age: 42 Arthritis, Onset Age: 30 Disorder of thyroid gland, Onset Age: 25 Disorder of lung, Onset Age: 40 Heart disease, Onset Age: 42 Uncle Substance abuse Maternal Diabetes mellitus, Onset Age: 55 Maternal Grandmother , age 87 Anxiety disorder, Onset Age: 8 Maternal Cerebrovascular accident, Onset Age: 87 Maternal Arthritis, Onset Age: 40 Maternal Dementia, Onset Age: 82 Maternal Disorder of thyroid gland, Onset Age: 50 Maternal Osteoporosis Maternal and paternal Obesity Maternal and paternal Hypertension, Onset Age: 50 Paternal Heart disease, Onset Age: 50 Paternal Disorder of lung, Onset Age: 40 Paternal Brother Substance abuse, Onset Age: 14 Disorder of thyroid gland, Onset Age: 14 Aunt Migraine, Onset Age: 30 Maternal Anxiety disorder, Onset Age: 5 Maternal Obesity, Onset Age: 30 Maternal Depressive disorder, Onset Age: 15 Maternal Hypertension, Onset Age: 50 Maternal Osteoporosis, Onset Age: 50 Maternal Substance abuse, Onset Age: 12 Maternal Arthritis, Onset Age: 35 Maternal Family/Other , age 34 Kidney disease Malignant neoplastic disease, Onset Age: 32 Hypertension Substance abuse Malignant tumor of cervix Obesity Grandfather , age 72 Myocardial infarction, Onset Age: 55 Maternal Malignant neoplastic disease Maternal Heart disease Maternal Arthritis Maternal Social History lives independently: Yes marital status: occupational status: disabled sexually active: No physical activity: none smoking status: Former smoker alcohol intake frequency: does not drink substance use type: does not use seatbelt use: always working smoke detector in home: Yes carbon monox detector in home: Yes firearms in home: No MEDS/ALLERGIES Home Medications and Allergies Home Medications Medication Instructions Recorded Confirmed Type cetirizine 10 mg tablet 10 mg PO QDAY 04/20/18 08/18/22 History oxycodone 30 mg tablet 30 mg PO Q4-6H PRN Pain 04/20/18 08/18/22 History albuterol sulfate 90 mcg/actuation 2 puff inhalation Q6H PRN 05/13/21 08/18/22 History aerosol inhaler (Proventil HFA) Shortness Of Breath hydrocortisone 1 % topical cream 1 applic topical BID PRN itching 05/13/2103/04 History (Anti-Itch (hydrocortisone)) ibuprofen 800 mg tablet 600 - 800 mg PO Q6 PRN Pain 05/13/21 08/18/22 History metformin 500 mg tablet,extended 1,000 mg PO BID 05/13/21 08/18/22 History release 24 hr nystatin 100,000 unit/gram topical 1 applic topical BID 05/13/21 08/18/22 H istory cream ondansetron 4 mg disintegrating 4 mg PO .Q4-6H PRN Nausea 05/13/21 08/18/22 Hist ory tablet magnesium hydroxide 400 mg/5 mL 30 ml PO QDAY PRN Constipation 08/18/22 08/18/22 History oral suspension (Milk of Magnesia) Allergies Allergy/AdvReac Type Severity Reaction Status Date / Time Sulfa (Sulfonamide Allergy Mild Hives Verified 08/18/22 11:21 Antibiotics) Cyclobenzaprine Allergy Unknown Unknown Verified 08/18/22 10:20 morphine AdvReac Intermediate Hallucinati Verified 08/18/22 11:21 ons fentanyl AdvReac Mild Headache Verified 08/18/22 11:21 tramadol AdvReac Mild Headache Verified 08/18/22 11:21 Physical Examination Vital Signs Vital signs: Temp Pulse Resp BP Pulse Ox O2 Del Method O2 Flow Rate 97.7 F 80 14 144/67 95 Nasal Cannula 1 08/18/22 16:00 08/18/22 16:50 08/18/22 16:00 08/18/22 16:02 08/18/22 16:50 08/18/22 16:15 08/18/22 16:15 Febrile and Tachycardic on admission. Now on treatment. General physical appearance General physical exam: obese (Super morbidly obese) Eyes Eye exam: PERRL ENT ENT exam: normal pinna, normal mucosa, no congestion and other (Oxygen by NC.) Head Head exam IM: Present atraumatic and normocephalic Neck Neck exam: no masses and no venous distension Cardiovascular Cardiovascular exam IM: Present normal rate and rhythm Respiratory Respiratory exam: normal expansion and other (Mild Tachypneic. Able to speak in full sentences. Appropriate conversation.) Respiratory exam: absent breath sounds: bilateral (Decreased air entry at lung bases.) Abdomen Abdomen: Present soft, non tender and tender Integumentary Integumentary: Present other ( 2 + pitting edema of both feet / legs. VLU lower legs anterior / lateral. Especially RIGHT leg. Warmth, tender and edematous periwound tissues. Serous draiange with crusts adherent to wound base. ) Neurologic Neurologic: Present normal coordination and other (Non focal neurological examination.) Musculoskeletal Musculoskeletal: Present other (Patient lying supine in bed. ) Psychiatric Psychiatric: Present oriented to time, oriented to person, oriented to place and speech is normal Results Labs 08/18/22 02:15 Labs: Abnormal lab results 08/18/22 08/18/22 08/18/22 Range/Units 02:15 02:15 02:15 WBC 12.8 H (4.5-11.0) K/mcL Hgb 10.7 L (11.2-15.7) g/dL MCH 25.6 L (26.0-34.0) pg MCHC 28.4 L (31.0-36.0) g/dL RDW 16.1 H (11.5-14.5) % Immature Gran % (Auto) 0.6 H (0.0-0.5) % Neut % (Auto) 92.0 H (38.0-78.0) % Lymph % (Auto) 4.3 L (15.5-49.0) % Lymph # (Auto) 0.55 L (1.50-4.80) K/mcL Immature Gran # 0.08 H (0.00-0.05) K/mcl Absolute Neutrophils 11.79 H (1.80-8.00) K/mcL ESR (0-30) mm/hr POC VBG pO2 (25-40) POC VBG HCO3 (24-28) POC VBG Total CO2 (25-29) POC VBG Base Excess (-2-2) POC Total CO2 (22-30) POC BUN (6-20) POC Glucose (70-105) Hemoglobin A1c (4.0-6.0) % Hgb POC WB Ioniz Calcium (1.16-1.32) Direct Bilirubin 0.3 H (<0.3) mg/dL Alkaline Phosphatase 134 H (39-117) U/L C-Reactive Protein (0.03-0.80) mg/dL NT-Pro-B Natriuret Pep (<125.0) pg/mL Globulin 4.5 H (2.2-3.7) gm/dL Procalcitonin 0.10 H (<0.10) ng/mL Urine Appearance (Clear) Urine Protein (Negative) mg/dL Urine Ketones (Negative) mg/dL Ur Squamous Epith Cells (0-4) /hpf Urine Bacteria (0) /hpf Urine Mucus (None) /hpf 08/18/22 08/18/22 08/18/22 Range/Units 02:15 02:15 02:15 WBC (4.5-11.0) K/mcL Hgb (11.2-15.7) g/dL MCH (26.0-34.0) pg MCHC (31.0-36.0) g/dL RDW (11.5-14.5) % Immature Gran % (Auto) (0.0-0.5) % Neut % (Auto) (38.0-78.0) % Lymph % (Auto) (15.5-49.0) % Lymph # (Auto) (1.50-4.80) K/mcL Immature Gran # (0.00-0.05) K/mcl Absolute Neutrophils (1.80-8.00) K/mcL ESR 76 H (0-30) mm/hr POC VBG pO2 (25-40) POC VBG HCO3 (24-28) POC VBG Total CO2 (25-29) POC VBG Base Excess (-2-2) POC Total CO2 (22-30) POC BUN (6-20) POC Glucose (70-105) Hemoglobin A1c (4.0-6.0) % Hgb POC WB Ioniz Calcium (1.16-1.32) Direct Bilirubin (<0.3) mg/dL Alkaline Phosphatase (39-117) U/L C-Reactive Protein 10.40 H (0.03-0.80) mg/dL NT-Pro-B Natriuret Pep 895.2 H (<125.0) pg/mL Globulin (2.2-3.7) gm/dL Procalcitonin (<0.10) ng/mL Urine Appearance (Clear) Urine Protein (Negative) mg/dL Urine Ketones (Negative) mg/dL Ur Squamous Epith Cells (0-4) /hpf Urine Bacteria (0) /hpf Urine Mucus (None) /hpf 08/18/22 08/18/22 08/18/22 Range/Units 02:19 02:23 04:22 WBC (4.5-11.0) K/mcL Hgb (11.2-15.7) g/dL MCH (26.0-34.0) pg MCHC (31.0-36.0) g/dL RDW (11.5-14.5) % Immature Gran % (Auto) (0.0-0.5) % Neut % (Auto) (38.0-78.0) % Lymph % (Auto) (15.5-49.0) % Lymph # (Auto) (1.50-4.80) K/mcL Immature Gran # (0.00-0.05) K/mcl Absolute Neutrophils (1.80-8.00) K/mcL ESR (0-30) mm/hr POC VBG pO2 24 L (25-40) POC VBG HCO3 30.0 H (24-28) POC VBG Total CO2 31.0 H (25-29) POC VBG Base Excess 5.0 H* (-2-2) POC Total CO2 32.0 H (22-30) POC BUN 26 H (6-20) POC Glucose 188 H (70-105) Hemoglobin A1c (4.0-6.0) % Hgb POC WB Ioniz Calcium 1.14 L (1.16-1.32) Direct Bilirubin (<0.3) mg/dL Alkaline Phosphatase (39-117) U/L C-Reactive Protein (0.03-0.80) mg/dL NT-Pro-B Natriuret Pep (<125.0) pg/mL Globulin (2.2-3.7) gm/dL Procalcitonin (<0.10) ng/mL Urine Appearance Hazy A (Clear) Urine Protein 30 A (Negative) mg/dL Urine Ketones 20 A (Negative) mg/dL Ur Squamous Epith Cells 6 H (0-4) /hpf Urine Bacteria Few A (0) /hpf Urine Mucus Few A (None) /hpf 08/18/22 Range/Units 10:40 WBC (4.5-11.0) K/mcL Hgb (11.2-15.7) g/dL MCH (26.0-34.0) pg MCHC (31.0-36.0) g/dL RDW (11.5-14.5) % Immature Gran % (Auto) (0.0-0.5) % Neut % (Auto) (38.0-78.0) % Lymph % (Auto) (15.5-49.0) % Lymph # (Auto) (1.50-4.80) K/mcL Immature Gran # (0.00-0.05) K/mcl Absolute Neutrophils (1.80-8.00) K/mcL ESR (0-30) mm/hr POC VBG pO2 (25-40) POC VBG HCO3 (24-28) POC VBG Total CO2 (25-29) POC VBG Base Excess (-2-2) POC Total CO2 (22-30) POC BUN (6-20) POC Glucose (70-105) Hemoglobin A1c 7.8 H (4.0-6.0) % Hgb POC WB Ioniz Calcium (1.16-1.32) Direct Bilirubin (<0.3) mg/dL Alkaline Phosphatase (39-117) U/L C-Reactive Protein (0.03-0.80) mg/dL NT-Pro-B Natriuret Pep (<125.0) pg/mL Globulin (2.2-3.7) gm/dL Procalcitonin (<0.10) ng/mL Urine Appearance (Clear) Urine Protein (Negative) mg/dL Urine Ketones (Negative) mg/dL Ur Squamous Epith Cells (0-4) /hpf Urine Bacteria (0) /hpf Urine Mucus (None) /hpf Diabetes panel 08/18/22 08/18/22 08/18/22 Range/Units 02:15 02:15 10:40 Hemoglobin A1c TNP 7.8 H AST 12 (<32) U/L ALT 11 (<40) U/L Alkaline Phosphatase 134 H (39-117) U/L Total Protein 8.0 (5.9-8.4) gm/dL Albumin 3.5 (3.2-5.2) gm/dL Thyroid panel 08/18/22 Range/Units 02:15 TSH 0.43 (0.27-5.01) uIU/mL Calcium panel 08/18/22 Range/Units 02:15 Albumin 3.5 (3.2-5.2) gm/dL Pituitary panel 08/18/22 Range/Units 02:15 TSH 0.43 (0.27-5.01) uIU/mL Adrenal panel 08/18/22 Range/Units 02:15 Total Bilirubin 1.0 (0.1-1.0) mg/dL AST 12 (<32) U/L ALT 11 (<40) U/L Alkaline Phosphatase 134 H (39-117) U/L Total Protein 8.0 (5.9-8.4) gm/dL Albumin 3.5 (3.2-5.2) gm/dL All other labs normal. A/P Narrative A/P Narrative: Assessment; SEPSIS, Primarily due to CSSSI Cellulitis legs. Primarily RIGHT LE. Venous leg ulcers. RIGHT lower Peripheral venous hypertension. Lymphedema both legs. Comorbidities: HTN, Hypoxia, COPD, ROXIE, Morbid obesity, DM2, Rheumatoid arthritis Plan of Treatment: Plan: Initial conservative management. Monitor response. Consult wound care nurse MIST with VASHE both legs QD Bacitracin, Adaptic, ABD pad,Kerlix. Will be following patient during her hospitalization. Further recommendations as condition evolves. Time Spent With Patient Time: Total time spent is greater than 50% in coordination of care (as documented) at patient's floor/unit and/or counseling patient: Initial: Total time with patient: 40 - 54 minutes
[2022-08-18] MEDS: SENNOSIDES 1 TABLET PO SCH (20:46)
[2022-08-19] MEDS: IPRATROPIUM/ALBUTEROL 3 ML AMPUL.NEB NEB SCH ×4 (01:51→17:45)
[2022-08-19] MEDS: AMPICILLIN SODIUM/SULBACTAM NA 3 GM in 0.9 % SODIUM CHLORIDE 100 ML IV SCH ×4 (02:31→20:38)
[2022-08-19] MEDS: oxyCODONE IR 5 MG TABLET PO PRN ×4 (02:33→16:52)
[2022-08-19] MEDS: HYDROmorphone 0.5 MG/0.5 ML SYRINGE IV PRN ×4 (04:33→22:35)
[2022-08-19] MEDS: 0.9 % SODIUM CHLORIDE 10 ML SYRINGE IV SCH ×3 (05:57→20:39)
[2022-08-19 06:32] LABS: Basophils # (Auto) 0.01 K/mcL (0.00-0.30); Basophils % (Auto) 0.1 % (0.0-2.0); Eosinophils # (Auto) 0.07 K/mcL (0.00-0.70); Eosinophils % (Auto) 0.8 % (0.0-7.0); Hematocrit 30.2 % (34.1-44.9); Hemoglobin 8.7 g/dL (11.2-15.7); Lymphocytes # (Auto) 1.56 K/mcL (1.50-4.80); Lymphocytes % (Auto) 17.4 % (15.5-49.0); Mean Cell Volume 87.5 fL (80.0-100.0); Mean Corpuscular HGB Conc 28.8 g/dL (31.0-36.0); Mean Platelet Volume 10.4 fL (8.8-12.5); Monocytes # (Auto) 0.76 K/mcL (0.10-0.90); Monocytes % (Auto) 8.5 % (1.0-12.0); Neutrophils % (Auto) 72.9 % (38.0-78.0); Platelet Count 260 K/mcL (140-440); RBC 3.45 M/mcL (3.59-5.38); Red Cell Distribution Width 16.5 % (11.5-14.5)
[2022-08-19 07:09] LABS: ALT/SGPT 8 U/L (<40); AST/SGOT 10 U/L (<32); Albumin 2.9 gm/dL (3.2-5.2); Albumin/Globulin Ratio 0.8 (1.0-2.3); Alkaline Phosphatase 98 U/L (39-117); Bilirubin,Direct < 0.2 mg/dL (0-0.3); Bilirubin,Total 0.4 mg/dL (0.1-1.0); Blood Urea Nitrogen 19 mg/dL (6-20); Calcium 8.3 mg/dL (8.6-10.4); Carbon Dioxide 35 mmol/L (22-30); Chloride 99 mmol/L (96-108); Globulin 3.6 gm/dL (2.2-3.7); Glomerular Filtration Rate 85; Glucose 125 mg/dL (70-105); Lactate Dehydrogenase 157 U/L (135-225); Phosphorous 2.5 mg/dL (2.5-4.5); Triglycerides 135 mg/dL (<150); Uric Acid 4.6 mg/dL (2.5-8.0)
[2022-08-19] MEDS: FUROSEMIDE 40 MG/4 ML VIAL IV SCH ×2 (08:25→15:27)
[2022-08-19] MEDS: INSULIN LISPRO 1 UNIT/0.01 ML UNIT SQ SCH ×4 (08:25→20:53)
[2022-08-19] MEDS: LISINOPRIL 20 MG TABLET PO SCH (08:28)
[2022-08-19] MEDS: VANCOMYCIN 1,500 MG in 0.9 % SODIUM CHLORIDE 500 ML IV SCH (08:30)
[2022-08-19] MEDS ORDERED: KETOROLAC 30 MG/ML VIAL IV PRN (08:32)
[2022-08-19] MEDS: ENOXAPARIN 40 MG/0.4 ML SYRINGE SQ SCH (08:50)
[2022-08-19] MEDS: BISOPROLOL 5 MG TABLET PO SCH (09:00)
[2022-08-19] MEDS: DOCUSATE SODIUM 100 MG CAPSULE PO SCH ×2 (09:00→20:39)
[2022-08-19] MEDS: KETOROLAC 15 MG/ML VIAL IV PRN ×2 (10:33→20:43)
[2022-08-19] MEDS ORDERED: POTASSIUM CHLORIDE 20 MEQ TABLET PO SCH (11:56)
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
--- NOTE | 2022-08-19 12:39 | General Surgery Progress Note ---
SUBJECTIVE Subjective Patient information: Note initiated : 08/19/22 at 12:29 pm Service Date, if different from initiated Date: [] Patient: Arik Sauer 52 y/o F admitted on 08/18/22 for sepsis. Chief Complaint: [] Additional PMFSH (Level 3 Only): Saw patient after Dr. Valderrama's visit. Examined wounds with ICU nurse Yarely CONTRERAS. Constitutional Vitals: Vital Signs Temp Pulse Resp BP Pulse Ox O2 Del Method O2 Flow Rate 97.6 F 80 14 171/79 98 Nasal Cannula 2 08/19/22 08:00 08/19/22 09:00 08/19/22 08:49 08/19/22 08:49 08/19/22 09:12 08/19/22 09:12 08/19/22 09:12 Period Temp Pulse Resp BP Sys/Bowie Pulse Ox O2 Del Method O2 Flow Rate Last 24 Hr 97.6 F-98.9 F 69-80 14-14 144-191/60-84 95-100 Nasal Cannula- Nasal Cannula 1-3 Intake and Output 08/19/22 08/19/22 08/19/22 03:59 11:59 19:59 Intake Total 700 220 Output Total 1900 Balance -1200 220 Weight 258 lb 4.8 oz Intake & Output: Intake & Output 08/19/22 08/19/22 08/19/22 03:59 11:59 19:59 Intake Total 700 220 Output Total 1900 Balance -1200 220 Weight 258 lb 4.8 oz Intake: IV 700 100 Unasyn 3 gm In Sodium Chloride 200 100 0.9% 100 ml @ 200 mls/hr IV Q6H [facility] Rx#:[id number] Vancomycin 1,500 mg In Sodium 500 Chloride 0.9% 500 ml @ 333.3 mls/hr IV Q12H [facility] Rx#: [id number] Oral 120 Output: Void Amount 1900 Other: Meal Dinner Breakfast Percent of Meal Consumed 50% 75% Feeding Ability Independent Urine Appearance Clear Urine Color Yellow Exam: AVSS. Looks good and feels well. Cheerful, conversational. Clear speech. Sitting up during MIST treatment. Nasal swab MRSA. Wound swab Skin jay and Strep. Blood c/s GPC L/E: Defervescing / resolving cellulitis. STILL has bio burden on wound bases. Demarcating slough and adipose tissue. Monitor progress. Will keep option of VERSAJET debridement. For the time being continue with ongoing trt. MIST and GCB. Wet to dry as explained to nurse. A/P Narrative A/P Narrative: Assessment. Progressing well. Plan of Treatment: Plan: Continue present treatment. MIST and GCB daily. Monitor response day by day. MIST with VASHE both legs QD Bacitracin GCB, Adaptic, ABD pad,Kerlix. Will be following patient during her hospitalization. Further recommendations as condition evolves. Thanks. Time Spent With Patient Time: Total time spent is greater than 50% in coordination of care (as documented) at patient's floor/unit and/or counseling patient: Initial: Total time with patient: 40 - 54 minutes
[2022-08-19] MEDS: ACETAMINOPHEN 500 MG TABLET PO PRN (13:39)
[2022-08-19] MEDS: SENNOSIDES 1 TABLET PO SCH (20:39)
[2022-08-19] MEDS: VANCOMYCIN 1,250 MG in 0.9 % SODIUM CHLORIDE 500 ML IV SCH (21:20)
[2022-08-20] MEDS: IPRATROPIUM/ALBUTEROL 3 ML AMPUL.NEB NEB SCH ×4 (00:30→19:28)
[2022-08-20] MEDS: AMPICILLIN SODIUM/SULBACTAM NA 3 GM in 0.9 % SODIUM CHLORIDE 100 ML IV SCH ×4 (01:33→20:12)
[2022-08-20] MEDS: oxyCODONE IR 5 MG TABLET PO PRN ×6 (01:35→21:59)
[2022-08-20] MEDS: KETOROLAC 15 MG/ML VIAL IV PRN (04:47)
[2022-08-20] MEDS: 0.9 % SODIUM CHLORIDE 10 ML SYRINGE IV SCH ×3 (05:17→21:42)
[2022-08-20 06:30] LABS: Basophils # (Auto) 0.02 K/mcL (0.00-0.30); Basophils % (Auto) 0.3 % (0.0-2.0); Eosinophils # (Auto) 0.18 K/mcL (0.00-0.70); Eosinophils % (Auto) 2.7 % (0.0-7.0); Hematocrit 31.1 % (34.1-44.9); Hemoglobin 8.8 g/dL (11.2-15.7); Lymphocytes # (Auto) 2.02 K/mcL (1.50-4.80); Lymphocytes % (Auto) 30.7 % (15.5-49.0); Mean Cell Volume 89.9 fL (80.0-100.0); Mean Corpuscular HGB Conc 28.3 g/dL (31.0-36.0); Mean Platelet Volume 10.4 fL (8.8-12.5); Monocytes # (Auto) 0.63 K/mcL (0.10-0.90); Monocytes % (Auto) 9.6 % (1.0-12.0); Neutrophils % (Auto) 56.5 % (38.0-78.0); Platelet Count 258 K/mcL (140-440); RBC 3.46 M/mcL (3.59-5.38); Red Cell Distribution Width 16.2 % (11.5-14.5); WBC 6.6 K/mcL (4.5-11.0)
[2022-08-20 07:27] LABS: ALT/SGPT 8 U/L (<40); AST/SGOT 10 U/L (<32); Albumin 2.5 gm/dL (3.2-5.2); Albumin/Globulin Ratio 0.6 (1.0-2.3); Alkaline Phosphatase 96 U/L (39-117); Bilirubin,Direct < 0.2 mg/dL (0-0.3); Bilirubin,Total 0.4 mg/dL (0.1-1.0); Blood Urea Nitrogen 24 mg/dL (6-20); Calcium 8.4 mg/dL (8.6-10.4); Carbon Dioxide 33 mmol/L (22-30); Chloride 101 mmol/L (96-108); Globulin 4.1 gm/dL (2.2-3.7); Glomerular Filtration Rate 74; Glucose 109 mg/dL (70-105); Lactate Dehydrogenase 164 U/L (135-225); Phosphorous 3.2 mg/dL (2.5-4.5); Triglycerides 145 mg/dL (<150); Uric Acid 5.9 mg/dL (2.5-8.0)
[2022-08-20] MEDS: HYDROmorphone 0.5 MG/0.5 ML SYRINGE IV PRN ×3 (07:56→16:01)
[2022-08-20] MEDS: FUROSEMIDE 40 MG/4 ML VIAL IV SCH (07:57)
[2022-08-20] MEDS: INSULIN LISPRO 1 UNIT/0.01 ML UNIT SQ SCH ×4 (08:06→20:17)
[2022-08-20] MEDS ORDERED: POTASSIUM CHLORIDE 20 MEQ TABLET PO ONE (08:29)
[2022-08-20] MEDS: ENOXAPARIN 40 MG/0.4 ML SYRINGE SQ SCH (08:58)
[2022-08-20] MEDS: LISINOPRIL 20 MG TABLET PO SCH (08:59)
[2022-08-20] MEDS: DOCUSATE SODIUM 100 MG CAPSULE PO SCH ×3 (08:59→20:18)
[2022-08-20] MEDS: ACETAMINOPHEN 500 MG TABLET PO PRN ×2 (08:59→17:50)
[2022-08-20] MEDS: BISOPROLOL 5 MG TABLET PO SCH (09:00)
[2022-08-20] MEDS: VANCOMYCIN 1,250 MG in 0.9 % SODIUM CHLORIDE 500 ML IV SCH ×2 (09:57→21:41)
[2022-08-20] MEDS ORDERED: FLU VACC QS2022-23(6MOS UP)/PF 60 MCG/0.5 ML SYRINGE IM ONE (10:00)
[2022-08-20] MEDS: MUPIROCIN OINT 2% 22GM NARES SCH ×2 (11:00→20:18)
[2022-08-20] MEDS ORDERED: BISOPROLOL 5 MG TABLET PO ONE (11:43)
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
--- NOTE | 2022-08-20 15:28 | General Surgery Progress Note ---
SUBJECTIVE Subjective Patient information: Note initiated : 08/20/22 at 3:22 pm Service Date, if different from initiated Date: [] Patient: Arik Sauer 52 y/o F admitted on 08/18/22 for sepsis. Chief Complaint: [] Additional PMFSH (Level 3 Only): Patient seen on rounds with nurse. Reports feeling well. Ambulating better. Leg dressings were changed earlier today. Reviewed Dr. Valderrama's note and spoke with him. Constitutional Vitals: Vital Signs Temp Pulse Resp BP Pulse Ox O2 Del Method O2 Flow Rate 97.5 F 59 L 16 188/71 100 Room Air 3 08/20/22 12:00 08/20/22 12:00 08/20/22 12:00 08/20/22 12:00 08/20/22 12:00 08/20/22 12:00 08/20/22 09:00 Period Temp Pulse Resp BP Sys/Bowie Pulse Ox O2 Del Method O2 Flow Rate Last 24 Hr 97.5 F-98.6 F 58-60 16-18 145-188/69-86 98-100 Nasal Cannula- Room Air 2-3 Intake and Output 08/20/22 08/20/22 08/20/22 03:59 11:59 19:59 Intake Total 940 600 Balance 940 600 Weight 261 lb Intake & Output: Intake & Output 08/20/22 08/20/22 08/20/22 03:59 11:59 19:59 Intake Total 940 600 Balance 940 600 Weight 261 lb Intake: IV 700 600 Unasyn 3 gm In Sodium Chloride 200 100 0.9% 100 ml @ 200 mls/hr IV Q6H [facility] Rx#:[id number] Vancomycin 1,250 mg In Sodium 500 500 Chloride 0.9% 500 ml @ 333.3 mls/hr IV Q12H [facility] Rx#: [id number] Oral 240 Other: # Voids 2 Exam: AVSS.No interval changes BINDU. TTE Echocardiogram finding noted. Leg wound c/s Skin jay. She still has bioburden and slough. Will benefit form OR debridement. A/P Narrative Plan of Treatment: Plan: Continue present treatment. MIST and GCB daily. Monitor response day by day . Will keep patient NPO after MN 08/21/2022 Will reassess Monday AM for OR debridement. For now continue MIST with VASHE both legs QD Bacitracin GCB, Adaptic, ABD pad,Kerlix. Will be following patient during her hospitalization. Further recommendations as condition evolves. Thanks. Time Spent With Patient Time: Total time spent is greater than 50% in coordination of care (as documented) at patient's floor/unit and/or counseling patient:
[2022-08-20] MEDS: SENNOSIDES 1 TABLET PO SCH (20:18)
[2022-08-21] MEDS: HYDROmorphone 0.5 MG/0.5 ML SYRINGE IV PRN ×3 (00:01→18:50)
[2022-08-21] MEDS: IPRATROPIUM/ALBUTEROL 3 ML AMPUL.NEB NEB SCH ×2 (00:02→07:00)
[2022-08-21] MEDS: AMPICILLIN SODIUM/SULBACTAM NA 3 GM in 0.9 % SODIUM CHLORIDE 100 ML IV SCH ×2 (01:18→08:10)
[2022-08-21] MEDS: oxyCODONE IR 5 MG TABLET PO PRN ×5 (03:24→21:08)
[2022-08-21] MEDS: 0.9 % SODIUM CHLORIDE 10 ML SYRINGE IV SCH ×3 (05:34→20:38)
[2022-08-21 06:24] LABS: Basophils # (Auto) 0.04 K/mcL (0.00-0.30); Basophils % (Auto) 0.6 % (0.0-2.0); Eosinophils # (Auto) 0.22 K/mcL (0.00-0.70); Eosinophils % (Auto) 3.2 % (0.0-7.0); Hematocrit 35.5 % (34.1-44.9); Hemoglobin 9.9 g/dL (11.2-15.7); Lymphocytes # (Auto) 2.24 K/mcL (1.50-4.80); Lymphocytes % (Auto) 32.8 % (15.5-49.0); Mean Corpuscular HGB Conc 27.9 g/dL (31.0-36.0); Mean Platelet Volume 9.9 fL (8.8-12.5); Monocytes # (Auto) 0.53 K/mcL (0.10-0.90); Monocytes % (Auto) 7.8 % (1.0-12.0); Neutrophils % (Auto) 55.3 % (38.0-78.0); Platelet Count 303 K/mcL (140-440); RBC 3.99 M/mcL (3.59-5.38); Red Cell Distribution Width 15.9 % (11.5-14.5); WBC 6.8 K/mcL (4.5-11.0)
[2022-08-21 06:50] LABS: ALT/SGPT 10 U/L (<40); AST/SGOT 13 U/L (<32); Albumin 3.2 gm/dL (3.2-5.2); Albumin/Globulin Ratio 0.7 (1.0-2.3); Alkaline Phosphatase 116 U/L (39-117); Bilirubin,Direct < 0.2 mg/dL (0-0.3); Bilirubin,Total 0.5 mg/dL (0.1-1.0); Blood Urea Nitrogen 26 mg/dL (6-20); Carbon Dioxide 35 mmol/L (22-30); Chloride 99 mmol/L (96-108); Globulin 4.4 gm/dL (2.2-3.7); Glomerular Filtration Rate 85; Glucose 113 mg/dL (70-105); Lactate Dehydrogenase 206 U/L (135-225); Phosphorous 3.2 mg/dL (2.5-4.5); Triglycerides 151 mg/dL (<150); Uric Acid 5.3 mg/dL (2.5-8.0)
[2022-08-21] MEDS: ACETAMINOPHEN 500 MG TABLET PO PRN (08:07)
[2022-08-21] MEDS: LISINOPRIL 20 MG TABLET PO SCH (08:08)
[2022-08-21] MEDS: BISOPROLOL 5 MG TABLET PO SCH (08:08)
[2022-08-21] MEDS: ENOXAPARIN 40 MG/0.4 ML SYRINGE SQ SCH (08:08)
[2022-08-21] MEDS: MUPIROCIN OINT 2% 22GM NARES SCH ×2 (08:21→20:35)
[2022-08-21] MEDS: INSULIN LISPRO 1 UNIT/0.01 ML UNIT SQ SCH ×4 (08:21→21:07)
[2022-08-21] MEDS: DOCUSATE SODIUM 100 MG CAPSULE PO SCH ×3 (08:21→20:37)
[2022-08-21] MEDS ORDERED: BISOPROLOL 5 MG TABLET PO SCH (09:00)
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
[2022-08-21] MEDS: CEFEPIME 2 GM VIAL IV SCH ×3 (11:25→21:08)
[2022-08-21] MEDS ORDERED: IPRATROPIUM/ALBUTEROL 3 ML AMPUL.NEB NEB PRN (12:02)
[2022-08-21] MEDS: SENNOSIDES 1 TABLET PO SCH ×2 (20:35→20:37)
[2022-08-22] MEDS: oxyCODONE IR 5 MG TABLET PO PRN ×4 (01:26→20:32)
[2022-08-22] MEDS: HYDROmorphone 0.5 MG/0.5 ML SYRINGE IV PRN ×7 (04:01→19:30)
[2022-08-22] MEDS: 0.9 % SODIUM CHLORIDE 10 ML SYRINGE IV SCH ×3 (06:02→20:46)
[2022-08-22] MEDS: CEFEPIME 2 GM VIAL IV SCH ×3 (06:02→21:31)
[2022-08-22 06:56] LABS: Basophils # (Auto) 0.03 K/mcL (0.00-0.30); Basophils % (Auto) 0.4 % (0.0-2.0); Eosinophils # (Auto) 0.26 K/mcL (0.00-0.70); Eosinophils % (Auto) 3.7 % (0.0-7.0); Hematocrit 31.1 % (34.1-44.9); Hemoglobin 8.8 g/dL (11.2-15.7); Lymphocytes # (Auto) 2.15 K/mcL (1.50-4.80); Lymphocytes % (Auto) 30.2 % (15.5-49.0); Mean Cell Volume 88.4 fL (80.0-100.0); Mean Corpuscular HGB Conc 28.3 g/dL (31.0-36.0); Mean Platelet Volume 10.5 fL (8.8-12.5); Monocytes # (Auto) 0.57 K/mcL (0.10-0.90); Neutrophils % (Auto) 57.1 % (38.0-78.0); Platelet Count 302 K/mcL (140-440); RBC 3.52 M/mcL (3.59-5.38); Red Cell Distribution Width 15.5 % (11.5-14.5); WBC 7.1 K/mcL (4.5-11.0)
[2022-08-22 07:15] LABS: Vancomycin,Random 9.6 ug/mL
[2022-08-22 07:24] LABS: ALT/SGPT 9 U/L (<40); AST/SGOT 11 U/L (<32); Albumin/Globulin Ratio 0.8 (1.0-2.3); Alkaline Phosphatase 99 U/L (39-117); Bilirubin,Direct < 0.2 mg/dL (0-0.3); Bilirubin,Total 0.4 mg/dL (0.1-1.0); Blood Urea Nitrogen 25 mg/dL (6-20); Calcium 8.6 mg/dL (8.6-10.4); Carbon Dioxide 34 mmol/L (22-30); Chloride 100 mmol/L (96-108); Globulin 3.7 gm/dL (2.2-3.7); Glomerular Filtration Rate 100; Glucose 131 mg/dL (70-105); Lactate Dehydrogenase 170 U/L (135-225); Phosphorous 2.9 mg/dL (2.5-4.5); Triglycerides 126 mg/dL (<150); Uric Acid 4.6 mg/dL (2.5-8.0)
--- NOTE | 2022-08-22 08:13 | General Surgery Progress Note ---
SUBJECTIVE Subjective Patient information: Note initiated : 08/22/22 at 8:06 am Service Date, if different from initiated Date: [] Patient: Arik Sauer 52 y/o F admitted on 08/18/22 for sepsis. Chief Complaint: [] Additional PMFSH (Level 3 Only): Patient had an uneventful night. She is NPO. Patient seen with Alis Prieto RNcolor separation photographer Manager. Constitutional Vitals: Vital Signs Temp Pulse Resp BP Pulse Ox O2 Del Method O2 Flow Rate 98.8 F 63 20 173/72 96 Nasal Cannula 1 08/22/22 06:47 08/22/22 06:47 08/22/22 06:47 08/22/22 06:47 08/22/22 06:47 08/22/22 06:47 08/22/22 06:47 Period Temp Pulse Resp BP Sys/Bowie Pulse Ox O2 Del Method O2 Flow Rate Last 24 Hr 97.7 F-98.8 F 58-69 16-20 157-173/66-78 96-100 Nasal Cannula- Nasal Cannula 1-3 Intake and Output 08/21/22 08/22/22 08/22/22 19:59 03:59 11:59 Intake Total 600 Output Total 650 Balance -50 Weight 266 lb 3.2 oz Intake & Output: Intake & Output 08/21/22 08/22/22 08/22/22 19:59 03:59 11:59 Intake Total 600 Output Total 650 Balance -50 Weight 266 lb 3.2 oz Intake: Oral 600 Output: Void Amount 650 Other: Meal Umberto cracker, cheese stick, egg salad Percent of Meal Consumed 100% Feeding Ability Independent Urine Appearance Clear Urine Color Dark Yellow # Voids 1 1 Exam: AVSS. No changes BINDU. S/P MIST and GCB dressings. For OR today. pulse lavage, Versa Jet debridement Tissue cultures and open packing both legs. A/P Narrative A/P Narrative: Assessment: Progressing well. For OR today. Plan of Treatment: Plan: For OR today.. Spoke with patient at length. Answered all her Qs. Informed maintenance and custodian supervisor Padmini CONTRERAS from [facility] CONTRERAS I/C Med Surg floor Will be following patient during her hospitalization. Further recommendations as condition evolves. Thanks. Time Spent With Patient Time: Total time spent is greater than 50% in coordination of care (as documented) at patient's floor/unit and/or counseling patient: Subsequent: Total time with patient: 25 - 34 minutes
[2022-08-22] MEDS ORDERED: SCOPOLAMINE 1 PATCH PATCH TOPICAL PRN (08:23)
[2022-08-22] MEDS: BISOPROLOL 5 MG TABLET PO SCH (08:31)
[2022-08-22] MEDS: LISINOPRIL 20 MG TABLET PO SCH (08:32)
[2022-08-22] MEDS: ACETAMINOPHEN 500 MG TABLET PO PRN ×3 (08:39→21:35)
[2022-08-22] MEDS: INSULIN LISPRO 1 UNIT/0.01 ML UNIT SQ SCH ×4 (08:46→20:33)
[2022-08-22] MEDS: MUPIROCIN OINT 2% 22GM NARES SCH ×2 (08:46→20:33)
[2022-08-22] MEDS: DOCUSATE SODIUM 100 MG CAPSULE PO SCH ×2 (11:29→20:45)
[2022-08-22] MEDS: ENOXAPARIN 40 MG/0.4 ML SYRINGE SQ SCH (11:29)
[2022-08-22] MEDS: VANCOMYCIN 1,500 MG in 0.9 % SODIUM CHLORIDE 500 ML IV SCH (11:53)
[2022-08-22] MEDS ORDERED: KETAMINE 50 MG/ML Syringe (ANEST) IV ONE (12:10)
[2022-08-22] MEDS ORDERED: GLYCOPYRROLATE 0.2 MG/ML VIAL IV ONE (12:10)
[2022-08-22] MEDS ORDERED: DEXAMETHASONE 10 MG/ML VIAL ONE (12:10)
[2022-08-22] MEDS ORDERED: LIDOCAINE HCL/PF 100 MG/5 ML SYRINGE IV ONE (12:10)
[2022-08-22] MEDS ORDERED: MAGNESIUM SULFATE 2 GM/50 ML BAG IV ONE (12:10)
[2022-08-22] MEDS ORDERED: ONDANSETRON 4 MG/2 ML VIAL ONE (12:10)
[2022-08-22] MEDS ORDERED: fentaNYL 100 MCG/2 ML VIAL IV ONE ×2 (12:10→13:15)
[2022-08-22] MEDS ORDERED: PROPOFOL 200 MG/20 ML VIAL IV ONE (12:10)
[2022-08-22] MEDS ORDERED: METOPROLOL TARTRATE 5 MG/5 ML VIAL IV PRN (12:21)
[2022-08-22] MEDS ORDERED: ACETAMINOPHEN 1,000 MG/100 ML BAG IV ONE (12:21)
[2022-08-22] MEDS ORDERED: LABETALOL 5 MG/ML ML IV PRN (12:21)
[2022-08-22] MEDS ORDERED: IPRATROPIUM/ALBUTEROL 3 ML AMPUL.NEB NEB PRN (12:21)
[2022-08-22] MEDS ORDERED: ONDANSETRON 4 MG/2 ML VIAL IV PRN (12:21)
[2022-08-22] MEDS ORDERED: NALOXONE HCL 0.4 MG/ML VIAL IV PRN (12:21)
[2022-08-22] MEDS ORDERED: METHOCARBAMOL 1,000 MG/10 ML VIAL IV PRN (12:21)
[2022-08-22] MEDS ORDERED: LACTATED RINGERS 250 ML IV PRN (12:21)
[2022-08-22] MEDS ORDERED: LACTATED RINGERS 1,000 ML IV SCH (12:30)
[2022-08-22] MEDS: fentaNYL 100 MCG/2 ML VIAL IV PRN ×4 (13:10→13:16)
--- NOTE | 2022-08-22 14:07 | General Surgery Procedure Note ---
Date of procedure: Note initiated : 08/22/22 at 2:01 pm Service Date, if different from initiated Date: [] Pre-op diagnosis: Cellulits, CSSSI BOTH legs and RIGHT 2nd toe Post-op diagnosis: same Procedure: Surgical debridement and pulse lavage irrigation, Tissue for c/s RIGHT and LEFT leg wounds. Open packing. Findings: Wound dimensions: RIGHT Lateral leg 14 x 9 x 0.5 CM RIGHT 2nd toe 2 x 1 x 0.5 CM LEFT lateral leg 9 x 6 x 0.5 CM Grafts/Implants: NONE Anesthesia: GLMA Surgeon: Luciano Keith Estimated blood loss: 20 Pathology: other (RIGHT and LEFT leg tissue for Gram stain and c/s Aerobic and Anaerobic) Description of procedure: Surgical Debridement and Pulse Lavage irrigation. 3 liters of NS with 800 mg Gentamicin. Condition: stable Disposition: floor
[2022-08-22] MEDS ORDERED: BACITRACIN TOPICAL OINT 15 GM TUBE TOPICAL ONE (14:11)
[2022-08-22] MEDS ORDERED: GENTAMICIN SULFATE 800 MG/20 ML VIAL IR ONE (14:11)
--- NOTE | 2022-08-22 14:35 | Operative Note ---
DATE OF OPERATION: 08/22/2022 DATE OF PROCEDURE: 08/22/2022 PREOPERATIVE DIAGNOSES: Cellulitis, resolving complicated skin and skin structure infection, open wounds on both legs, lateral aspect and dorsal surface of right second toe. POSTOPERATIVE DIAGNOSES: Cellulitis, resolving complicated skin and skin structure infection, open wounds on both legs, lateral aspect and dorsal surface of right second toe. PROCEDURE: 1. Surgical debridement and pulse lavage irrigation of the wounds. 2. Tissue from right and left leg wound cultures and sensitivities. 3. Open packing. FINDINGS: Wound dimensions right lateral leg 14 x 9 x 0.5 cm; right dorsal second toe 2 x 0.5 cm; left lateral lower leg 9 x 6 x 0.5 cm. ANESTHESIA: General laryngeal mask airway. NURSE CONSULTANT: Jacob Sánchez CRNA SURGEON: Luciano Keith M.D. ESTIMATED BLOOD LOSS: 20 mL. INSTRUMENT COUNTS: Count of swabs, instruments, and needles was reported to be correct. CONDITION: Operation was well tolerated. INDICATIONS: This is a lady admitted with sepsis due to complicated skin and skin structure infections. She is a morbidly obese. Other comorbid conditions are history of urinary tract infection and atelectasis of lung bases. After stabilization of initial medical problems and starting her on IV antibiotics, MIST treatments, patient is now taken to the operating room for pulse lavage irrigation and deep tissue biopsies and cultures. INTRAOPERATIVE FINDINGS: Stage II wounds with dimensions as above. PROCEDURE NOTE IN DETAIL: After obtaining informed consent, patient was taken to the She was anesthetized uneventfully on the table using laryngeal mask airway. Timeout was called. Both lower extremities were widely cleaned, prepped, and draped from the lower thigh up to the toes. The patient was placed in Trendelenburg position. First, I proceeded to dbride the left lateral leg wound. This was carried out with pickup, scissors and #7 ring metal curette. Tangential excision, debridement of all the nonviable tissue was done and the wound base and margins were sharply curetted. Pulse lavage irrigation was used. We used 3 liters of normal saline mixed with 800 mg of gentamicin solution. The left leg wound was thoroughly cleaned and hemostasis was achieved with pressure and elevation. Attention was now turned to the right leg and right dorsal second toe. First, the dorsal second toe was sharply debrided with pickup and scissors. The spaces between the toes were cleaned. Lastly, the open wounds on the right lateral leg were sharply debrided with #7 curette after pulse lavage irrigation. Phlebotomist Medical Lab Assistant sample was taken for culture and sensitivity. Dressings consisted of bacitracin ointment, Adaptic, gauze, Kerlix, Webril, Coban, and Dale bandages, respectively. She recovered from operation uneventfully and was taken to in stable condition. POSTOPERATIVE PLAN: The patient will be closely monitored. Antibiotic recommendation consult will be obtained from the infectious disease specialist. VD:drew Job ID: [id number] Doc ID: [id number] Luciano Keith MD MTDD
--- NOTE | 2022-08-22 15:09 | Internal Med Progress Note ---
SUBJECTIVE Subjective Patient information: Note initiated : 08/22/22 at 3:08 pm Service Date, if different from initiated Date: [] Patient: Arik Sauer 52 y/o F admitted on 08/18/22 for sepsis. Chief Complaint: [Bilateral lower extremity nonhealing wounds] Principal diagnosis: Bilateral purulent cellulitis Interval history: The patient was resting comfortably in bed. She was to go to the OR today for debridement. Discussed the case with Dr. Keith afterwards. It is recommended she undergo an infectious disease consult for antibiotic management. Constitutional Vitals: Vital Signs Temp Pulse Resp BP Pulse Ox O2 Del Method O2 Flow Rate 97.1 F 56 L 12 167/72 90 Room Air 2 08/22/22 13:40 08/22/22 13:47 08/22/22 13:47 08/22/22 13:47 08/22/22 13:47 08/22/22 13:47 08/22/22 13:40 Period Temp Pulse Resp BP Sys/Bowie Pulse Ox O2 Del Method O2 Flow Rate Last 24 Hr 97.1 F-98.8 F 54-69 12-20 149-177/66-86 90-100 Nasal Cannula- Room Air 0-4 Intake and Output 08/22/22 08/22/22 08/22/22 03:59 11:59 19:59 Intake Total 600 500 Output Total 650 Balance -50 500 Weight 120.746 kg Intake & Output: Intake & Output 08/22/22 08/22/22 08/22/22 03:59 11:59 19:59 Intake Total 600 500 Output Total 650 Balance -50 500 Weight 120.746 kg Intake: IV 500 Vancomycin 1,500 mg In Sodium 500 Chloride 0.9% 500 ml @ 333.3 mls/hr IV Q24H [facility] Rx#: [id number] Oral 600 Output: Void Amount 650 Other: Meal Umberto cracker, cheese stick, egg salad Percent of Meal Consumed 100% Feeding Ability Independent Urine Appearance Clear Urine Color Dark Yellow # Voids 1 Head Head exam: Present atraumatic and normal inspection Eye Eye exam: Present normal appearance ENT ENT exam: Present mucous membranes moist, normal exam and normal external ear exam Neck Neck exam: Present normal inspection Respiratory Respiratory exam: Present normal respiratory exam Cardiovascular Cardiovascular exam: Present normal rate and rhythm GI/Abdominal GI/Abdominal exam: Present normal bowel sounds Back Exam Back exam: Present normal inspection Neurological Exam Neurological exam: Present alert and oriented X3 Skin Skin exam: Present intact and warm OBJ DATA Labs 08/22/22 05:12 08/22/22 05:12 Labs: Abnormal Lab Results 08/22/22 08/22/22 08/21/22 05:12 05:12 07:52 RBC 3.52 L Hgb 8.8 L Hct 31.1 L MCH 25.0 L MCHC 28.3 L RDW 15.5 H Immature Gran % (Auto) 0.6 H Carbon Dioxide 34 H Anion Gap 5.0 L BUN 25 H Glucose 131 H Calcium GGT Albumin 3.0 L Globulin Albumin/Globulin Ratio 0.8 L Triglycerides Vancomycin Trough 23.2 H* 08/21/22 08/21/22 08/20/22 05:46 05:46 05:22 RBC Hgb 9.9 L Hct MCH 24.8 L MCHC 27.9 L RDW 15.9 H Immature Gran % (Auto) Carbon Dioxide 35 H 33 H Anion Gap 7.0 L 7.0 L BUN 26 H 24 H Glucose 113 H 109 H Calcium 8.4 L GGT 38 H Albumin 2.5 L Globulin 4.4 H 4.1 H Albumin/Globulin Ratio 0.7 L 0.6 L Triglycerides 151 H Vancomycin Trough 08/20/22 05:22 RBC 3.46 L Hgb 8.8 L Hct 31.1 L MCH 25.4 L MCHC 28.3 L RDW 16.2 H Immature Gran % (Auto) Carbon Dioxide Anion Gap BUN Glucose Calcium GGT Albumin Globulin Albumin/Globulin Ratio Triglycerides Vancomycin Trough Meds: Medications Acetaminophen (Acetaminophen 500 Mg Tablet) 1,000 mg PO Q8HP PRN; Protocol PRN Reason: Per Pain Protocol/Fever > 101 Last Admin: 08/22/22 08:39 Dose: 1,000 mg Albuterol Sulfate (Albuterol Sulfate 2.5 Mg/3 Ml Nebulizer) 2.5 mg NEB Q2HP PRN PRN Reason: Shortness Of Breath Albuterol/Ipratropium (Ipratropium/Albuterol 3 Ml Ampul.Neb) 3 ml NEB Q6HRT PRN PRN Reason: wheezing Bisoprolol Fumarate (Bisoprolol 5 Mg Tablet) 2.5 mg PO DAILY SILVIA Last Admin: 03/13/23 08:31 Dose: 2.5 mg Cefepime HCl (Cefepime 2 Gm Vial) 2 gm IV Q8H [facility]; Protocol Last Admin: 08/22/22 06:02 Dose: 2 gm Dextrose (Dextrose 50% 50 Ml Vial) 0 ml IV UD PRN PRN Reason: Per Sliding Scale Diagnostic Test (Pha) (Accu-Chek 1 Each Strip) 1 each FS [facility] Last Admin: 08/22/22 08:45 Dose: 1 each Docusate Sodium (Docusate Sodium 100 Mg Capsule) 100 mg PO BID [facility] Last Admin: 08/22/22 11:29 Dose: Not Given Enoxaparin Sodium (Enoxaparin 40 Mg/0.4 Ml Syringe) 40 mg SQ DAILY [facility] Last Admin: 08/22/22 11:29 Dose: Not Given Glucose (Dextrose 31 Gm Oral.Susp) 15 gm PO PRN PRN PRN Reason: Hypoglycemia Hydromorphone HCl (Hydromorphone 0.5 Mg/0.5 Ml Syringe) 0.5 mg IV Q2HP PRN; Protocol PRN Reason: Per Pain Protocol Last Admin: 08/22/22 11:27 Dose: 0.5 mg Vancomycin HCl 1,500 mg/ (Sodium Chloride) 500 mls @ 333.3 mls/hr IV Q24H [facility] Last Infusion: 08/22/22 13:32 Dose: Infused Insulin Human Lispro (Insulin Lispro 1 Unit/0.01 Ml Unit) 0 unit SQ [facility]; Protocol Last Admin: 08/22/22 08:46 Dose: Not Given Labetalol HCl (Labetalol 5 Mg/Ml Ml) 10 mg IV Q10M PRN PRN Reason: Hypertension Last Admin: 08/18/22 12:32 Dose: 10 mg Lisinopril (Lisinopril 20 Mg Tablet) 40 mg PO DAILY [facility] Last Admin: 08/22/22 08:32 Dose: 40 mg Mupirocin (Mupirocin Oint 2% 22gm) 1 dose NARES BID [facility] Last Admin: 08/22/22 08:46 Dose: 1 dose Ondansetron HCl (Ondansetron 4 Mg/2 Ml Vial) 4 mg IV Q6HP PRN PRN Reason: Nausea And Vomiting Oxycodone HCl (Oxycodone Hcl 5 Mg Tablet) 10 mg PO Q4HP PRN; Protocol PRN Reason: Per Pain Protocol Last Admin: 08/22/22 06:05 Dose: 10 mg Senna (Sennosides 1 Tablet) 2 tab PO HS [facility] Last Admin: 08/21/22 20:37 Dose: Not Given Sodium Chloride (0.9 % Sodium Chloride 10 Ml Syringe) 10 ml IV Q8 [facility] Last Admin: 08/22/22 06:02 Dose: 10 ml Vancomycin HCl (Vancomycin Per Pharmacy) 1 order IV UD [facility]; Protocol A/P Narrative A/P Narrative: Assessment: 52 year old female with multiple comorbidities listed below admitted for sepsis secondary to lower extremity cellulitis secondary to chronic lower extremity wounds. #Resolved sepsis likely secondary to lower extremity cellulitis #1 out of 2 blood cultures positive for Streptococcus pyogenes #Wound swab cultures positive for MRSA and Pseudomonas #Chronic and nonhealing lower extremity wounds #Type 2 diabetes mellitus, hemoglobin A1c 7.8 #Hypertension, poorly controlled #Chronic diastolic heart failure #Pulmonary hypertension #COPD with chronic hypoxic (2-3 L/min) #Seronegative rheumatoid arthritis vs psoriatic arthritis #Chronic back pain #History of MRSA #ROXIE on CPAP #Mood disorder, unspecified #Obesity BMI 44 Plan -Vancomycin IV per pharmacy and Cefepime. -Follow all blood cultures. -Wound care team following for lower extremity wounds, Dr Pang planning for debridement in OR tomorrow. -Continue bisoprolol 2.5 daily, increase lisinopril to 40 mg daily. -Labetalol IV as needed for extremely elevated BP. -Correction humalog SSI-medium dose, holding home metformin. -Scheduled Duoneb and as needed albuterol neb. -Analgesics for back pain. -PT and OT. -CPAP at bedtime. -Diabetic diet/n.p.o. after midnight. -DVT prophylaxis: Lovenox -Disposition: Inpatient MedSurg. The patient will probably discharge home with home health in 1 to 2 days. Follow-up in the wound care clinic. Time Spent With Patient Time: Total time spent is greater than 50% in coordination of care (as documented) at patient's floor/unit and/or counseling patient: Subsequent: Total time with patient: 25 - 34 minutes
--- NOTE | 2022-08-22 16:24 | Infectious Disease Consult ---
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) Restrictive lung disease (Chronic) Anxiety disorder (Chronic) Dermatophytosis (Chronic) Dependence on supplemental oxygen (Chronic) Foot pain, right (Chronic) Bipolar disorder, unspecified (Chronic) High risk medication use (Chronic) Groin rash (Chronic) Paresthesia of both hands (Chronic) Sciatica (Chronic) Foot joint pain (Chronic) Hand joint pain (Chronic) Agoraphobia (Chronic) Migraine (Chronic) Osteoarthritis (Chronic) Thyroid nodule (Chronic) Atopic eczema (Chronic) Herpes simplex (Chronic) Tobacco use (Chronic) halfway current use of non-steroidal anti-inflammatories (NSAID) (Chronic) bend up (current) use of opiate analgesic (Chronic) Moderate major depression (Chronic) Lumbar radiculitis (Chronic) Degenerative disc disease, lumbar (Chronic) Degenerative disc disease, thoracic (Chronic) Primary generalized (osteo)arthritis (Chronic) Antinuclear factor positive (Chronic) Sicca syndrome (Chronic) Psoriatic arthritis (Chronic) Allergic rhinitis (Chronic) COPD (chronic obstructive pulmonary disease) (Chronic) GERD (gastroesophageal reflux disease) (Chronic) Hypothyroidism (Chronic) Aortic stenosis (Chronic) Diastolic dysfunction (Chronic) Hypertension (Chronic) Diabetes mellitus type II, uncontrolled (Chronic) Rheumatoid arthritis (Chronic) Medical History Agoraphobia Allergic rhinitis Antinuclear factor positive Anxiety disorder Aortic stenosis Atopic eczema Bipolar disorder, unspecified COPD (chronic obstructive pulmonary disease) Degenerative disc disease, lumbar Degenerative disc disease, thoracic Dependence on supplemental oxygen Dermatophytosis Diabetes mellitus type II, uncontrolled Diastolic dysfunction Disorder of intervertebral disc of lumbar spine Foot joint pain Foot pain, right GERD (gastroesophageal reflux disease) Groin rash Hand joint pain Heart murmur Herpes simplex High risk medication use Hypertension Hypothyroidism bend up (current) use of opiate analgesic halfway current use of non-steroidal anti-inflammatories (NSAID) Lumbar radiculitis Migraine Moderate major depression Osteoarthritis Paresthesia of both hands Primary generalized (osteo)arthritis Psoriatic arthritis Restrictive lung disease Rheumatoid arthritis Sciatica Sicca syndrome Thyroid nodule Tobacco use Surgical History History of appendectomy (~1983) History of arthroscopy of right knee History of cholecystectomy (~1998) History of D&C Multiple History of left oophorectomy (~1983) History of shoulder surgery (~1996) History of thyroidectomy (~1991) History of tonsillectomy (~1983) Family History Father , 60 Heart disease Heart disease Substance abuse, Onset Age: 14 Obesity, Onset Age: 16 Myocardial infarction, Onset Age: 35 Hypertension, Onset Age: 40 Sleep disorder, Onset Age: 40 Sister Kidney disease Hypertension, Onset Age: 30 Myocardial infarction, Onset Age: 40 Obesity, Onset Age: 18 Heart disease, Onset Age: 35 Arthritis, Onset Age: 35 Substance abuse, Onset Age: 13 Disorder of thyroid gland, Onset Age: 14 Sleep disorder, Onset Age: 35 Mother , age 69 Crohn's disease Multiple sclerosis, Onset Age: 29 Myocardial infarction, Onset Age: 42 Arthritis, Onset Age: 30 Disorder of thyroid gland, Onset Age: 25 Disorder of lung, Onset Age: 40 Heart disease, Onset Age: 42 Uncle Substance abuse Maternal Diabetes mellitus, Onset Age: 55 Maternal Grandmother , age 87 Anxiety disorder, Onset Age: 8 Maternal Cerebrovascular accident, Onset Age: 87 Maternal Arthritis, Onset Age: 40 Maternal Dementia, Onset Age: 82 Maternal Disorder of thyroid gland, Onset Age: 50 Maternal Osteoporosis Maternal and paternal Obesity Maternal and paternal Hypertension, Onset Age: 50 Paternal Heart disease, Onset Age: 50 Paternal Disorder of lung, Onset Age: 40 Paternal Brother Substance abuse, Onset Age: 14 Disorder of thyroid gland, Onset Age: 14 Aunt Migraine, Onset Age: 30 Maternal Anxiety disorder, Onset Age: 5 Maternal Obesity, Onset Age: 30 Maternal Depressive disorder, Onset Age: 15 Maternal Hypertension, Onset Age: 50 Maternal Osteoporosis, Onset Age: 50 Maternal Substance abuse, Onset Age: 12 Maternal Arthritis, Onset Age: 35 Maternal Family/Other , age 34 Kidney disease Malignant neoplastic disease, Onset Age: 32 Hypertension Substance abuse Malignant tumor of cervix Obesity Grandfather , age 72 Myocardial infarction, Onset Age: 55 Maternal Malignant neoplastic disease Maternal Heart disease Maternal Arthritis Maternal Social History lives independently: Yes marital status: occupational status: disabled sexually active: No physical activity: none smoking status: Former smoker alcohol intake frequency: does not drink substance use type: does not use seatbelt use: always working smoke detector in home: Yes carbon monox detector in home: Yes firearms in home: No MEDS/ALLERGIES Home Medications and Allergies Home Medications Medication Instructions Recorded Confirmed Type cetirizine 10 mg tablet 10 mg PO QDAY 04/20/18 08/18/22 History oxycodone 30 mg tablet 30 mg PO Q4-6H PRN Pain 04/20/18 08/18/22 History albuterol sulfate 90 mcg/actuation 2 puff inhalation Q6H PRN 05/13/21 08/18/22 History aerosol inhaler (Proventil HFA) Shortness Of Breath hydrocortisone 1 % topical cream 1 applic topical BID PRN itching 05/13/21 08/18/22 History (Anti-Itch (hydrocortisone)) ibuprofen 800 mg tablet 600 - 800 mg PO Q6 PRN Pain 05/13/21 08/18/22 History metformin 500 mg tablet,extended 1,000 mg PO BID 05/13/21 08/18/22 History release 24 hr nystatin 100,000 unit/gram topical 1 applic topical BID 05/13/21 08/18/22 History cream ondansetron 4 mg disintegrating 4 mg PO .Q4-6H PRN Nausea 05/13/21 08/18/22 History tablet magnesium hydroxide 400 mg/5 mL 30 ml PO QDAY PRN Constipation 08/18/22 08/18/22 History oral suspension (Milk of Magnesia) Allergies Allergy/AdvReac Type Severity Reaction Status Date / Time Sulfa (Sulfonamide Allergy Mild Hives Verified 08/18/22 11:21 Antibiotics) Cyclobenzaprine Allergy Unknown Unknown Verified 08/18/22 10:20 morphine AdvReac Intermediate Hallucinati Verified 08/18/22 11:21 ons fentanyl AdvReac Mild Headache Verified 08/18/22 11:21 tramadol AdvReac Mild Headache Verified 08/18/22 11:21 Physical Examination Vital Signs Vital signs: Temp Pulse Resp BP Pulse Ox O2 Del Method O2 Flow Rate 97.1 F 56 L 12 167/72 90 Room Air 2 08/22/22 13:40 08/22/22 13:47 08/22/22 13:47 08/22/22 13:47 08/22/22 13:47 08/22/22 13:47 08/22/22 13:40 Results Laboratory Findings 08/22/22 05:12 08/22/22 05:12 Abnormal lab findings: Abnormal Labs 08/18/22 08/18/22 08/18/22 02:15 02:15 02:15 WBC 12.8 H RBC Hgb 10.7 L Hct MCH 25.6 L MCHC 28.4 L RDW 16.1 H Immature Gran % (Auto) 0.6 H Neut % (Auto) 92.0 H Lymph % (Auto) 4.3 L Lymph # (Auto) 0.55 L Immature Gran # 0.08 H Absolute Neutrophils 11.79 H ESR POC VBG pO2 POC VBG HCO3 POC VBG Total CO2 POC VBG Base Excess Carbon Dioxide POC Total CO2 Anion Gap POC BUN BUN Glucose POC Glucose Hemoglobin A1c Calcium POC WB Ioniz Calcium Direct Bilirubin 0.3 H GGT Alkaline Phosphatase 134 H C-Reactive Protein NT-Pro-B Natriuret Pep Albumin Globulin 4.5 H Albumin/Globulin Ratio Triglycerides Procalcitonin 0.10 H Urine Appearance Urine Protein Urine Ketones Ur Squamous Epith Cells Urine Bacteria Urine Mucus Vancomycin Trough 08/18/22 08/18/22 08/18/22 02:15 02:15 02:15 WBC RBC Hgb Hct MCH MCHC RDW Immature Gran % (Auto) Neut % (Auto) Lymph % (Auto) Lymph # (Auto) Immature Gran # Absolute Neutrophils ESR 76 H POC VBG pO2 POC VBG HCO3 POC VBG Total CO2 POC VBG Base Excess Carbon Dioxide POC Total CO2 Anion Gap POC BUN BUN Glucose POC Glucose Hemoglobin A1c Calcium POC WB Ioniz Calcium Direct Bilirubin GGT Alkaline Phosphatase C-Reactive Protein 10.40 H NT-Pro-B Natriuret Pep 895.2 H Albumin Globulin Albumin/Globulin Ratio Triglycerides Procalcitonin Urine Appearance Urine Protein Urine Ketones Ur Squamous Epith Cells Urine Bacteria Urine Mucus Vancomycin Trough 08/18/22 08/18/22 08/18/22 02:19 02:23 04:22 WBC RBC Hgb Hct MCH MCHC RDW Immature Gran % (Auto) Neut % (Auto) Lymph % (Auto) Lymph # (Auto) Immature Gran # Absolute Neutrophils ESR POC VBG pO2 24 L POC VBG HCO3 30.0 H POC VBG Total CO2 31.0 H POC VBG Base Excess 5.0 H* Carbon Dioxide POC Total CO2 32.0 H Anion Gap POC BUN 26 H BUN Glucose POC Glucose 188 H Hemoglobin A1c Calcium POC WB Ioniz Calcium 1.14 L Direct Bilirubin GGT Alkaline Phosphatase C-Reactive Protein NT-Pro-B Natriuret Pep Albumin Globulin Albumin/Globulin Ratio Triglycerides Procalcitonin Urine Appearance Hazy A Urine Protein 30 A Urine Ketones 20 A Ur Squamous Epith Cells 6 H Urine Bacteria Few A Urine Mucus Few A Vancomycin Trough 08/18/22 08/19/22 08/19/22 10:40 05:23 05:23 WBC RBC 3.45 L Hgb 8.7 L Hct 30.2 L MCH 25.2 L MCHC 28.8 L RDW 16.5 H Immature Gran % (Auto) Neut % (Auto) Lymph % (Auto) Lymph # (Auto) Immature Gran # Absolute Neutrophils ESR POC VBG pO2 POC VBG HCO3 POC VBG Total CO2 POC VBG Base Excess Carbon Dioxide 35 H POC Total CO2 Anion Gap 3.0 L POC BUN BUN Glucose 125 H POC Glucose Hemoglobin A1c 7.8 H Calcium 8.3 L POC WB Ioniz Calcium Direct Bilirubin GGT Alkaline Phosphatase C-Reactive Protein NT-Pro-B Natriuret Pep Albumin 2.9 L Globulin Albumin/Globulin Ratio 0.8 L Triglycerides Procalcitonin Urine Appearance Urine Protein Urine Ketones Ur Squamous Epith Cells Urine Bacteria Urine Mucus Vancomycin Trough 08/20/22 08/20/22 08/21/22 05:22 05:22 05:46 WBC RBC 3.46 L Hgb 8.8 L 9.9 L Hct 31.1 L MCH 25.4 L 24.8 L MCHC 28.3 L 27.9 L RDW 16.2 H 15.9 H Immature Gran % (Auto) Neut % (Auto) Lymph % (Auto) Lymph # (Auto) Immature Gran # Absolute Neutrophils ESR POC VBG pO2 POC VBG HCO3 POC VBG Total CO2 POC VBG Base Excess Carbon Dioxide 33 H POC Total CO2 Anion Gap 7.0 L POC BUN BUN 24 H Glucose 109 H POC Glucose Hemoglobin A1c Calcium 8.4 L POC WB Ioniz Calcium Direct Bilirubin GGT Alkaline Phosphatase C-Reactive Protein NT-Pro-B Natriuret Pep Albumin 2.5 L Globulin 4.1 H Albumin/Globulin Ratio 0.6 L Triglycerides Procalcitonin Urine Appearance Urine Protein Urine Ketones Ur Squamous Epith Cells Urine Bacteria Urine Mucus Vancomycin Trough 08/21/22 08/21/22 08/22/22 05:46 07:52 05:12 WBC RBC 3.52 L Hgb 8.8 L Hct 31.1 L MCH 25.0 L MCHC 28.3 L RDW 15.5 H Immature Gran % (Auto) 0.6 H Neut % (Auto) Lymph % (Auto) Lymph # (Auto) Immature Gran # Absolute Neutrophils ESR POC VBG pO2 POC VBG HCO3 POC VBG Total CO2 POC VBG Base Excess Carbon Dioxide 35 H POC Total CO2 Anion Gap 7.0 L POC BUN BUN 26 H Glucose 113 H POC Glucose Hemoglobin A1c Calcium POC WB Ioniz Calcium Direct Bilirubin GGT 38 H Alkaline Phosphatase C-Reactive Protein NT-Pro-B Natriuret Pep Albumin Globulin 4.4 H Albumin/Globulin Ratio 0.7 L Triglycerides 151 H Procalcitonin Urine Appearance Urine Protein Urine Ketones Ur Squamous Epith Cells Urine Bacteria Urine Mucus Vancomycin Trough 23.2 H* 08/22/22 05:12 WBC RBC Hgb Hct MCH MCHC RDW Immature Gran % (Auto) Neut % (Auto) Lymph % (Auto) Lymph # (Auto) Immature Gran # Absolute Neutrophils ESR POC VBG pO2 POC VBG HCO3 POC VBG Total CO2 POC VBG Base Excess Carbon Dioxide 34 H POC Total CO2 Anion Gap 5.0 L POC BUN BUN 25 H Glucose 131 H POC Glucose Hemoglobin A1c Calcium POC WB Ioniz Calcium Direct Bilirubin GGT Alkaline Phosphatase C-Reactive Protein NT-Pro-B Natriuret Pep Albumin 3.0 L Globulin Albumin/Globulin Ratio 0.8 L Triglycerides Procalcitonin Urine Appearance Urine Protein Urine Ketones Ur Squamous Epith Cells Urine Bacteria Urine Mucus Vancomycin Trough Microbiology: Microbiology 08/20/22 10:10 Blood Blood Culture - Preliminary 08/20/22 10:03 Blood Blood Culture - Preliminary 08/18/22 02:26 Blood Blood Culture - Preliminary 08/18/22 03:16 Leg - Lower Right Gram Stain - Final 08/18/22 03:16 Leg - Lower Right Wound Culture - Final Streptococcus dysgalactiae Gram positive bacillus Pseudomonas aeruginosa#2 Proteus vulgaris#2 Methicillin resistant s.aureus 08/18/22 03:17 Leg - Lower Left Gram Stain - Final 08/18/22 03:17 Leg - Lower Left Wound Culture - Final Streptococcus (beta) gr. C Methicillin resistant s.aureus Proteus mirabilis 08/18/22 02:15 Blood Blood Culture - Preliminary Strep pyogenes (grp a) 08/18/22 13:48 Nose - Both Right and Left MRSA (PCR) - Final 08/18/22 04:21 Urine - Random Urine Culture - Final 08/18/22 05:45 Nasopharynx Coronavirus COVID-19 PCR - Final A/P Time Spent With Patient Time: Total time spent is greater than 50% in coordination of care (as documented) at patient's floor/unit and/or counseling patient:
--- NOTE | 2022-08-22 17:29 | Infectious Disease Consult ---
Telemedicine Intake Start Time: 04:45 (PM PST) End Time: 05:30 (PM PST) Consent for assessment and treatment to occur via virtual technology obtained from: Patient Location of Provider: Home Patient location: Med/Surg Unit Any recent travel (within the last 21 days)?: No HPI Date of Consult Consult Date: 08/22/22 Requesting physician: Марина Joya Primary Care Provider: Reanna Morris PA-C Consult Narrative Reason for consult: bilateral lower extremity cellulitis with wounds History of present illness: This is a 52-year-old female with below mentioned medical condition admitted on 08/18 after presenting with bilateral lower extremity pain, swelling, on RLE > LLE, with associated fever, weakness, worsening wounds to her lower extremity and diarrhea. As per patient, she was treated for left lower extremity cellulitis back in 04/2022 at OSH. Long after discharge, she refers her dog bumped into her and scratched the skin of her right lower extremity. After this, she started seeing worsening right lower extremity wounds with secretions but did not seek any treatment. Upon admission, patient was found confused, febrile (102.4F), tachycardic (96bpm). On labs, patient had mild leukocytosis (12.8k) with left shift (92%), pct 0.10, COVID, influenza testing were negative, UA not indicative of infection, CXRay pulmonary vascular congestion.Pt was started on Vancomycin + Zosyn. Upon admission, pt was started on Vancomycin + Cefepime + Gentamicin. Wound cx for rt leg now growing MRSA, P. mirabilis, Group B strept. Wound cx for lt leg growing Strep dysgalactiae, Pseudomonas aeruginosa, P. vulgaris, MRSA. Blood cultures on 08/18 growing Streptococcus pyogenes. Pt was seen by Surgery service and underwent OR debridement of both legs and rt second toe. 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) Restrictive lung disease (Chronic) Anxiety disorder (Chronic) Dermatophytosis (Chronic) Dependence on supplemental oxygen (Chronic) Foot pain, right (Chronic) Bipolar disorder, unspecified (Chronic) High risk medication use (Chronic) Groin rash (Chronic) Paresthesia of both hands (Chronic) Sciatica (Chronic) Foot joint pain (Chronic) Hand joint pain (Chronic) Agoraphobia (Chronic) Migraine (Chronic) Osteoarthritis (Chronic) Thyroid nodule (Chronic) Atopic eczema (Chronic) Herpes simplex (Chronic) Tobacco use (Chronic) shelter current use of non-steroidal anti-inflammatories (NSAID) (Chronic) shelter (current) use of opiate analgesic (Chronic) Moderate major depression (Chronic) Lumbar radiculitis (Chronic) Degenerative disc disease, lumbar (Chronic) Degenerative disc disease, thoracic (Chronic) Primary generalized (osteo)arthritis (Chronic) Antinuclear factor positive (Chronic) Sicca syndrome (Chronic) Psoriatic arthritis (Chronic) Allergic rhinitis (Chronic) COPD (chronic obstructive pulmonary disease) (Chronic) GERD (gastroesophageal reflux disease) (Chronic) Hypothyroidism (Chronic) Aortic stenosis (Chronic) Diastolic dysfunction (Chronic) Hypertension (Chronic) Diabetes mellitus type II, uncontrolled (Chronic) Rheumatoid arthritis (Chronic) Medical History Agoraphobia Allergic rhinitis Antinuclear factor positive Anxiety disorder Aortic stenosis Atopic eczema Bipolar disorder, unspecified COPD (chronic obstructive pulmonary disease) Degenerative disc disease, lumbar Degenerative disc disease, thoracic Dependence on supplemental oxygen Dermatophytosis Diabetes mellitus type II, uncontrolled Diastolic dysfunction Disorder of intervertebral disc of lumbar spine Foot joint pain Foot pain, right GERD (gastroesophageal reflux disease) Groin rash Hand joint pain Heart murmur Herpes simplex High risk medication use Hypertension Hypothyroidism 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-steroidal anti-inflammatories (NSAID) Lumbar radiculitis Migraine Moderate major depression Osteoarthritis Paresthesia of both hands Primary generalized (osteo)arthritis Psoriatic arthritis Restrictive lung disease Rheumatoid arthritis Sciatica Sicca syndrome Thyroid nodule Tobacco use Surgical History History of appendectomy (~1983) History of arthroscopy of right knee History of cholecystectomy (~1998) History of D&C Multiple History of left oophorectomy (~1983) History of shoulder surgery (~1996) History of thyroidectomy (~1991) History of tonsillectomy (~1983) Family History Father , 60 Heart disease Heart disease Substance abuse, Onset Age: 14 Obesity, Onset Age: 16 Myocardial infarction, Onset Age: 35 Hypertension, Onset Age: 40 Sleep disorder, Onset Age: 40 Sister Kidney disease Hypertension, Onset Age: 30 Myocardial infarction, Onset Age: 40 Obesity, Onset Age: 18 Heart disease, Onset Age: 35 Arthritis, Onset Age: 35 Substance abuse, Onset Age: 13 Disorder of thyroid gland, Onset Age: 14 Sleep disorder, Onset Age: 35 Mother , age 69 Crohn's disease Multiple sclerosis, Onset Age: 29 Myocardial infarction, Onset Age: 42 Arthritis, Onset Age: 30 Disorder of thyroid gland, Onset Age: 25 Disorder of lung, Onset Age: 40 Heart disease, Onset Age: 42 Uncle Substance abuse Maternal Diabetes mellitus, Onset Age: 55 Maternal Grandmother , age 87 Anxiety disorder, Onset Age: 8 Maternal Cerebrovascular accident, Onset Age: 87 Maternal Arthritis, Onset Age: 40 Maternal Dementia, Onset Age: 82 Maternal Disorder of thyroid gland, Onset Age: 50 Maternal Osteoporosis Maternal and paternal Obesity Maternal and paternal Hypertension, Onset Age: 50 Paternal Heart disease, Onset Age: 50 Paternal Disorder of lung, Onset Age: 40 Paternal Brother Substance abuse, Onset Age: 14 Disorder of thyroid gland, Onset Age: 14 Aunt Migraine, Onset Age: 30 Maternal Anxiety disorder, Onset Age: 5 Maternal Obesity, Onset Age: 30 Maternal Depressive disorder, Onset Age: 15 Maternal Hypertension, Onset Age: 50 Maternal Osteoporosis, Onset Age: 50 Maternal Substance abuse, Onset Age: 12 Maternal Arthritis, Onset Age: 35 Maternal Family/Other , age 34 Kidney disease Malignant neoplastic disease, Onset Age: 32 Hypertension Substance abuse Malignant tumor of cervix Obesity Grandfather , age 72 Myocardial infarction, Onset Age: 55 Maternal Malignant neoplastic disease Maternal Heart disease Maternal Arthritis Maternal Social History lives independently: Yes marital status: occupational status: disabled sexually active: No physical activity: none smoking status: Former smoker alcohol intake frequency: does not drink substance use type: does not use seatbelt use: always working smoke detector in home: Yes carbon monox detector in home: Yes firearms in home: No MEDS/ALLERGIES Home Medications and Allergies Home Medications Medication Instructions Recorded Confirmed Type cetirizine 10 mg tablet 10 mg PO QDAY 04/20/18 08/18/22 History oxycodone 30 mg tablet 30 mg PO Q4-6H PRN Pain 04/20/18 08/18/22 History albuterol sulfate 90 mcg/actuation 2 puff inhalation Q6H PRN 05/13/21 08/18/22 History aerosol inhaler (Proventil HFA) Shortness Of Breath hydrocortisone 1 % topical cream 1 applic topical BID PRN itching 05/13/21 08/18/22 History (Anti-Itch (hydrocortisone)) ibuprofen 800 mg tablet 600 - 800 mg PO Q6 PRN Pain 05/13/21 08/18/22 History metformin 500 mg tablet,extended 1,000 mg PO BID 05/13/21 08/18/22 History release 24 hr nystatin 100,000 unit/gram topical 1 applic topical BID 05/13/21 08/18/22 History cream ondansetron 4 mg disintegrating 4 mg PO .Q4-6H PRN Nausea 05/13/21 08/18/22 History tablet magnesium hydroxide 400 mg/5 mL 30 ml PO QDAY PRN Constipation 08/18/22 08/18/22 History oral suspension (Milk of Magnesia) Allergies Allergy/AdvReac Type Severity Reaction Status Date / Time Sulfa (Sulfonamide Allergy Mild Hives Verified 08/18/22 11:21 Antibiotics) Cyclobenzaprine Allergy Unknown Unknown Verified 08/18/22 10:20 morphine AdvReac Intermediate Hallucinati Verified 08/18/22 11:21 ons fentanyl AdvReac Mild Headache Verified 08/18/22 11:21 tramadol AdvReac Mild Headache Verified 08/18/22 11:21 Physical Examination Vital Signs Vital signs: Temp Pulse Resp BP Pulse Ox O2 Del Method O2 Flow Rate 97.1 F 56 L 12 167/72 90 Room Air 2 08/22/22 13:40 08/22/22 13:47 08/22/22 13:47 08/22/22 13:47 08/22/22 13:47 08/22/22 13:47 08/22/22 13:40 Constitutional General appearance: no acute distress, alert and other (obese, chronically ill ) EENT Eyes pulmonary: nonicteric ENT: oropharynx moist and oropharynx dry Respiratory Effort: normal Cardiovascular Cardiovascular: regular rate and rhythm Gastrointestinal Gastrointestinal: normoactive bowel sounds Integumentary Integumentary: other Extremities Extremities: other (presence of bandage in both lower extremities ) Neurologic Neurological: normal mental status and non-focal exam Psychiatric Psychiatric: mood appropriate Results Laboratory Findings 08/22/22 05:12 08/22/22 05:12 Abnormal lab findings: Abnormal Labs 08/18/22 08/18/22 08/18/22 02:15 02:15 02:15 WBC 12.8 H RBC Hgb 10.7 L Hct MCH 25.6 L MCHC 28.4 L RDW 16.1 H Immature Gran % (Auto) 0.6 H Neut % (Auto) 92.0 H Lymph % (Auto) 4.3 L Lymph # (Auto) 0.55 L Immature Gran # 0.08 H Absolute Neutrophils 11.79 H ESR POC VBG pO2 POC VBG HCO3 POC VBG Total CO2 POC VBG Base Excess Carbon Dioxide POC Total CO2 Anion Gap POC BUN BUN Glucose POC Glucose Hemoglobin A1c Calcium POC WB Ioniz Calcium Direct Bilirubin 0.3 H GGT Alkaline Phosphatase 134 H C-Reactive Protein NT-Pro-B Natriuret Pep Albumin Globulin 4.5 H Albumin/Globulin Ratio Triglycerides Procalcitonin 0.10 H Urine Appearance Urine Protein Urine Ketones Ur Squamous Epith Cells Urine Bacteria Urine Mucus Vancomycin Trough 08/18/22 08/18/22 08/18/22 02:15 02:15 02:15 WBC RBC Hgb Hct MCH MCHC RDW Immature Gran % (Auto) Neut % (Auto) Lymph % (Auto) Lymph # (Auto) Immature Gran # Absolute Neutrophils ESR 76 H POC VBG pO2 POC VBG HCO3 POC VBG Total CO2 POC VBG Base Excess Carbon Dioxide POC Total CO2 Anion Gap POC BUN BUN Glucose POC Glucose Hemoglobin A1c Calcium POC WB Ioniz Calcium Direct Bilirubin GGT Alkaline Phosphatase C-Reactive Protein 10.40 H NT-Pro-B Natriuret Pep 895.2 H Albumin Globulin Albumin/Globulin Ratio Triglycerides Procalcitonin Urine Appearance Urine Protein Urine Ketones Ur Squamous Epith Cells Urine Bacteria Urine Mucus Vancomycin Trough 08/18/22 08/18/22 08/18/22 02:19 02:23 04:22 WBC RBC Hgb Hct MCH MCHC RDW Immature Gran % (Auto) Neut % (Auto) Lymph % (Auto) Lymph # (Auto) Immature Gran # Absolute Neutrophils ESR POC VBG pO2 24 L POC VBG HCO3 30.0 H POC VBG Total CO2 31.0 H POC VBG Base Excess 5.0 H* Carbon Dioxide POC Total CO2 32.0 H Anion Gap POC BUN 26 H BUN Glucose POC Glucose 188 H Hemoglobin A1c Calcium POC WB Ioniz Calcium 1.14 L Direct Bilirubin GGT Alkaline Phosphatase C-Reactive Protein NT-Pro-B Natriuret Pep Albumin Globulin Albumin/Globulin Ratio Triglycerides Procalcitonin Urine Appearance Hazy A Urine Protein 30 A Urine Ketones 20 A Ur Squamous Epith Cells 6 H Urine Bacteria Few A Urine Mucus Few A Vancomycin Trough 08/18/22 08/19/22 08/19/22 10:40 05:23 05:23 WBC RBC 3.45 L Hgb 8.7 L Hct 30.2 L MCH 25.2 L MCHC 28.8 L RDW 16.5 H Immature Gran % (Auto) Neut % (Auto) Lymph % (Auto) Lymph # (Auto) Immature Gran # Absolute Neutrophils ESR POC VBG pO2 POC VBG HCO3 POC VBG Total CO2 POC VBG Base Excess Carbon Dioxide 35 H POC Total CO2 Anion Gap 3.0 L POC BUN BUN Glucose 125 H POC Glucose Hemoglobin A1c 7.8 H Calcium 8.3 L POC WB Ioniz Calcium Direct Bilirubin GGT Alkaline Phosphatase C-Reactive Protein NT-Pro-B Natriuret Pep Albumin 2.9 L Globulin Albumin/Globulin Ratio 0.8 L Triglycerides Procalcitonin Urine Appearance Urine Protein Urine Ketones Ur Squamous Epith Cells Urine Bacteria Urine Mucus Vancomycin Trough 08/20/22 08/20/22 08/21/22 05:22 05:22 05:46 WBC RBC 3.46 L Hgb 8.8 L 9.9 L Hct 31.1 L MCH 25.4 L 24.8 L MCHC 28.3 L 27.9 L RDW 16.2 H 15.9 H Immature Gran % (Auto) Neut % (Auto) Lymph % (Auto) Lymph # (Auto) Immature Gran # Absolute Neutrophils ESR POC VBG pO2 POC VBG HCO3 POC VBG Total CO2 POC VBG Base Excess Carbon Dioxide 33 H POC Total CO2 Anion Gap 7.0 L POC BUN BUN 24 H Glucose 109 H POC Glucose Hemoglobin A1c Calcium 8.4 L POC WB Ioniz Calcium Direct Bilirubin GGT Alkaline Phosphatase C-Reactive Protein NT-Pro-B Natriuret Pep Albumin 2.5 L Globulin 4.1 H Albumin/Globulin Ratio 0.6 L Triglycerides Procalcitonin Urine Appearance Urine Protein Urine Ketones Ur Squamous Epith Cells Urine Bacteria Urine Mucus Vancomycin Trough 08/21/22 08/21/22 08/22/22 05:46 07:52 05:12 WBC RBC 3.52 L Hgb 8.8 L Hct 31.1 L MCH 25.0 L MCHC 28.3 L RDW 15.5 H Immature Gran % (Auto) 0.6 H Neut % (Auto) Lymph % (Auto) Lymph # (Auto) Immature Gran # Absolute Neutrophils ESR POC VBG pO2 POC VBG HCO3 POC VBG Total CO2 POC VBG Base Excess Carbon Dioxide 35 H POC Total CO2 Anion Gap 7.0 L POC BUN BUN 26 H Glucose 113 H POC Glucose Hemoglobin A1c Calcium POC WB Ioniz Calcium Direct Bilirubin GGT 38 H Alkaline Phosphatase C-Reactive Protein NT-Pro-B Natriuret Pep Albumin Globulin 4.4 H Albumin/Globulin Ratio 0.7 L Triglycerides 151 H Procalcitonin Urine Appearance Urine Protein Urine Ketones Ur Squamous Epith Cells Urine Bacteria Urine Mucus Vancomycin Trough 23.2 H* 08/22/22 05:12 WBC RBC Hgb Hct MCH MCHC RDW Immature Gran % (Auto) Neut % (Auto) Lymph % (Auto) Lymph # (Auto) Immature Gran # Absolute Neutrophils ESR POC VBG pO2 POC VBG HCO3 POC VBG Total CO2 POC VBG Base Excess Carbon Dioxide 34 H POC Total CO2 Anion Gap 5.0 L POC BUN BUN 25 H Glucose 131 H POC Glucose Hemoglobin A1c Calcium POC WB Ioniz Calcium Direct Bilirubin GGT Alkaline Phosphatase C-Reactive Protein NT-Pro-B Natriuret Pep Albumin 3.0 L Globulin Albumin/Globulin Ratio 0.8 L Triglycerides Procalcitonin Urine Appearance Urine Protein Urine Ketones Ur Squamous Epith Cells Urine Bacteria Urine Mucus Vancomycin Trough Microbiology: Microbiology 08/20/22 10:10 Blood Blood Culture - Preliminary 08/20/22 10:03 Blood Blood Culture - Preliminary 08/18/22 02:26 Blood Blood Culture - Preliminary 08/18/22 03:16 Leg - Lower Right Gram Stain - Final 08/18/22 03:16 Leg - Lower Right Wound Culture - Final Streptococcus dysgalactiae Gram positive bacillus Pseudomonas aeruginosa#2 Proteus vulgaris#2 Methicillin resistant s.aureus 08/18/22 03:17 Leg - Lower Left Gram Stain - Final 08/18/22 03:17 Leg - Lower Left Wound Culture - Final Streptococcus (beta) gr. C Methicillin resistant s.aureus Proteus mirabilis 08/18/22 02:15 Blood Blood Culture - Preliminary Strep pyogenes (grp a) 08/18/22 13:48 Nose - Both Right and Left MRSA (PCR) - Final 08/18/22 04:21 Urine - Random Urine Culture - Final 08/18/22 05:45 Nasopharynx Coronavirus COVID-19 PCR - Final A/P Assessment and plan (1) Bacteremia due to Streptococcus: Assessment and plan: This is a 52-year-old female admitted for sepsis secondary to Streptococcus pyogenes bacteremia secondary to bilateral foot abscess s/p OR debridement on 08/22. Plan: - ok insert midline/picc line (repeat BCx 08/20 NGTD) - discontinue Cefepime - start Ceftriaxone 2g IV daily to complete total 14 day course starting from 08/22 (OR debridement day) - keep Vancomycin IV while admitted to cover for MRSA in wounds (discontinue upon discharge) - follow up OR wound cultures - follow up with Surgery - follow up with wound care - set up follow up appointment at outpatient ID clinic in 2 weeks - obtain weekly cbc+diff, cmp, esr, crp levels while on IV antibiotics Status: Acute (2) Abscess of foot including toes: Plan: - wound cx growing polymicrobial organisms: MRSA, P. vulgaris, PsAr, Strept dysgalactiae, P. mirabilis Status: Acute (3) History of MRSA infection: Plan: - keep contact precautions while admitted Status: Acute Time Spent With Patient Time: Total time spent is greater than 50% in coordination of care (as documented) at patient's floor/unit and/or counseling patient: Initial: Total time with patient: 40 - 54 minutes
[2022-08-22] MEDS: SENNOSIDES 1 TABLET PO SCH (20:46)
[2022-08-22] MEDS ORDERED: 0.9 % SODIUM CHLORIDE 10 ML SYRINGE IV SCH (22:00)
[2022-08-23] MEDS: oxyCODONE IR 5 MG TABLET PO PRN ×5 (03:24→21:09)
[2022-08-23] MEDS: ACETAMINOPHEN 500 MG TABLET PO PRN ×2 (04:49→23:03)
[2022-08-23] MEDS: CEFEPIME 2 GM VIAL IV SCH (05:30)
[2022-08-23] MEDS: 0.9 % SODIUM CHLORIDE 10 ML SYRINGE IV SCH ×3 (05:31→20:17)
[2022-08-23] MEDS: MUPIROCIN OINT 2% 22GM NARES SCH ×2 (07:41→20:12)
[2022-08-23] MEDS: ENOXAPARIN 40 MG/0.4 ML SYRINGE SQ SCH (07:41)
[2022-08-23] MEDS: INSULIN LISPRO 1 UNIT/0.01 ML UNIT SQ SCH ×4 (07:41→20:16)
[2022-08-23] MEDS: DOCUSATE SODIUM 100 MG CAPSULE PO SCH ×2 (07:42→20:12)
[2022-08-23] MEDS: VANCOMYCIN 1,500 MG in 0.9 % SODIUM CHLORIDE 500 ML IV SCH (07:44)
[2022-08-23] MEDS: LISINOPRIL 20 MG TABLET PO SCH (07:45)
[2022-08-23] MEDS: BISOPROLOL 5 MG TABLET PO SCH (07:45)
[2022-08-23] MEDS: HYDROmorphone 0.5 MG/0.5 ML SYRINGE IV PRN ×4 (09:39→23:03)
[2022-08-23] MEDS: cefTRIAXone 2 GM in DEXTROSE 5% IN WATER 50 ML IV SCH (09:40)
--- NOTE | 2022-08-23 12:09 | Internal Med Progress Note ---
SUBJECTIVE Subjective Patient information: Note initiated : 08/23/22 at 12:08 pm Service Date, if different from initiated Date: [] Patient: Arik Sauer 52 y/o F admitted on 08/18/22 for sepsis. Chief Complaint: [] Principal diagnosis: Bilateral purulent cellulitis Interval history: The patient was resting comfortably in bed. She had no active complaints or concerns. Constitutional Vitals: Vital Signs Temp Pulse Resp BP Pulse Ox O2 Del Method O2 Flow Rate 98.2 F 62 18 166/67 100 Nasal Cannula 2 08/23/22 07:12 08/23/22 07:12 08/23/22 07:12 08/23/22 07:12 08/23/22 07:12 08/23/22 07:12 08/23/22 07:12 Period Temp Pulse Resp BP Sys/Bowie Pulse Ox O2 Del Method O2 Flow Rate Last 24 Hr 97.0 F-98.2 F 54-67 12-20 149-178/60-86 90-100 Nasal Cannula- Room Air 0-4 Intake and Output 08/23/22 08/23/22 08/23/22 03:59 11:59 19:59 Intake Total 1487 Output Total 800 Balance 687 Weight 120.973 kg Intake & Output: Intake & Output 08/23/22 08/23/22 08/23/22 03:59 11:59 19:59 Intake Total 1487 Output Total 800 Balance 687 Weight 120.973 kg Intake: Oral 1487 Output: Void Amount 800 Other: Meal Dinner Percent of Meal Consumed 100% Feeding Ability Independent Urine Appearance Clear Urine Color Dark Yellow Head Head exam: Present atraumatic and normal inspection Eye Eye exam: Present normal appearance ENT ENT exam: Present mucous membranes moist, normal exam and normal external ear exam Neck Neck exam: Present normal inspection Respiratory Respiratory exam: Present normal respiratory exam Cardiovascular Cardiovascular exam: Present normal rate and rhythm GI/Abdominal GI/Abdominal exam: Present normal bowel sounds Back Exam Back exam: Present normal inspection Neurological Exam Neurological exam: Present alert and oriented X3 Skin Skin exam: Present intact and warm OBJ DATA Labs 08/22/22 05:12 08/22/22 05:12 Labs: Abnormal Lab Results 08/22/22 08/22/22 08/21/22 05:12 05:12 07:52 RBC 3.52 L Hgb 8.8 L Hct 31.1 L MCH 25.0 L MCHC 28.3 L RDW 15.5 H Immature Gran % (Auto) 0.6 H Carbon Dioxide 34 H Anion Gap 5.0 L BUN 25 H Glucose 131 H GGT Albumin 3.0 L Globulin Albumin/Globulin Ratio 0.8 L Triglycerides Vancomycin Trough 23.2 H* 08/21/22 08/21/22 05:46 05:46 RBC Hgb 9.9 L Hct MCH 24.8 L MCHC 27.9 L RDW 15.9 H Immature Gran % (Auto) Carbon Dioxide 35 H Anion Gap 7.0 L BUN 26 H Glucose 113 H GGT 38 H Albumin Globulin 4.4 H Albumin/Globulin Ratio 0.7 L Triglycerides 151 H Vancomycin Trough Meds: Medications Acetaminophen (Acetaminophen 500 Mg Tablet) 1,000 mg PO Q8HP PRN; Protocol PRN Reason: Per Pain Protocol/Fever > 101 Last Admin: 08/23/22 04:49 Dose: 1,000 mg Albuterol Sulfate (Albuterol Sulfate 2.5 Mg/3 Ml Nebulizer) 2.5 mg NEB Q2HP PRN PRN Reason: Shortness Of Breath Albuterol/Ipratropium (Ipratropium/Albuterol 3 Ml Ampul.Neb) 3 ml NEB Q6HRT PRN PRN Reason: wheezing Bisoprolol Fumarate (Bisoprolol 5 Mg Tablet) 2.5 mg PO DAILY [facility] Last Admin: 08/23/22 07:45 Dose: 2.5 mg Dextrose (Dextrose 50% 50 Ml Vial) 0 ml IV UD PRN PRN Reason: Per Sliding Scale Diagnostic Test (Pha) (Accu-Chek 1 Each Strip) 1 each FS ACHS [facility] Last Admin: 08/23/22 11:24 Dose: 1 each Docusate Sodium (Docusate Sodium 100 Mg Capsule) 100 mg PO BID [facility] Last Admin: 08/23/22 07:42 Dose: 100 mg Enoxaparin Sodium (Enoxaparin 40 Mg/0.4 Ml Syringe) 40 mg SQ DAILY [facility] Last Admin: 08/23/22 07:41 Dose: 40 mg Glucose (Dextrose 31 Gm Oral.Susp) 15 gm PO PRN PRN PRN Reason: Hypoglycemia Hydromorphone HCl (Hydromorphone 0.5 Mg/0.5 Ml Syringe) 0.5 mg IV Q2HP PRN; Protocol PRN Reason: Per Pain Protocol Last Admin: 08/23/22 09:39 Dose: 0.5 mg Vancomycin HCl 1,500 mg/ (Sodium Chloride) 500 mls @ 333.3 mls/hr IV Q24H [facility] Last Admin: 08/23/22 07:44 Dose: 333 mls/hr Ceftriaxone Sodium 2 gm/ (Dextrose) 50 mls @ 100 mls/hr IV Q24H [facility]; Protocol Last Admin: 08/23/22 09:40 Dose: 100 mls/hr Insulin Human Lispro (Insulin Lispro 1 Unit/0.01 Ml Unit) 0 unit SQ ACHS [facility]; Protocol Last Admin: 08/23/22 11:37 Dose: 6 unit Labetalol HCl (Labetalol 5 Mg/Ml Ml) 10 mg IV Q10M PRN PRN Reason: Hypertension Last Admin: 08/18/22 12:32 Dose: 10 mg Lisinopril (Lisinopril 20 Mg Tablet) 40 mg PO DAILY [facility] Last Admin: 08/23/22 07:45 Dose: 40 mg Mupirocin (Mupirocin Oint 2% 22gm) 1 dose NARES BID [facility] Last Admin: 08/23/22 07:41 Dose: 1 dose Ondansetron HCl (Ondansetron 4 Mg/2 Ml Vial) 4 mg IV Q6HP PRN PRN Reason: Nausea And Vomiting Oxycodone HCl (Oxycodone Hcl 5 Mg Tablet) 10 mg PO Q4HP PRN; Protocol PRN Reason: Per Pain Protocol Last Admin: 08/23/22 11:42 Dose: 10 mg Senna (Sennosides 1 Tablet) 2 tab PO HS [facility] Last Admin: 08/22/22 20:46 Dose: Not Given Sodium Chloride (0.9 % Sodium Chloride 10 Ml Syringe) 10 ml IV Q8 [facility] Last Admin: 08/23/22 05:31 Dose: 10 ml Vancomycin HCl (Vancomycin Per Pharmacy) 1 order IV UD [facility]; Protocol A/P Narrative A/P Narrative: Assessment: 52 year old female with multiple comorbidities listed below admitted for sepsis secondary to lower extremity cellulitis secondary to chronic lower extremity wounds. #Resolved sepsis likely secondary to lower extremity cellulitis #1 out of 2 blood cultures positive for Streptococcus pyogenes #Wound swab cultures positive for MRSA and Pseudomonas #Chronic and nonhealing lower extremity wounds #Type 2 diabetes mellitus, hemoglobin A1c 7.8 #Hypertension, poorly controlled #Chronic diastolic heart failure #Pulmonary hypertension #COPD with chronic hypoxic (2-3 L/min) #Seronegative rheumatoid arthritis vs psoriatic arthritis #Chronic back pain #History of MRSA #ROXIE on CPAP #Mood disorder, unspecified #Obesity BMI 44 Plan -Vancomycin IV per pharmacy and Cefepime.-> Tele-ID rec 14d course of CTX, stop Vanco upon d/c. Place PICC line today. Polymicrobial wound culture growth (GBS, MRSA, Pseudomonas) -Follow all blood cultures. -Wound care team following for lower extremity wounds, Dr Pang planning for debridement in OR tomorrow. -Continue bisoprolol 2.5 daily, increase lisinopril to 40 mg daily. -Labetalol IV as needed for extremely elevated BP. -Correction humalog SSI-medium dose, holding home metformin. -Scheduled Duoneb and as needed albuterol neb. -Analgesics for back pain. -PT and OT. -CPAP at bedtime. -Diabetic diet/n.p.o. after midnight. -DVT prophylaxis: Lovenox -Disposition: Inpatient MedSurg. The patient will probably discharge home with home health in 1 to 2 days. Follow-up in the wound care clinic. Time Spent With Patient Time: Total time spent is greater than 50% in coordination of care (as documented) at patient's floor/unit and/or counseling patient: Subsequent: Total time with patient: 25 - 34 minutes
[2022-08-23] MEDS: SENNOSIDES 1 TABLET PO SCH (20:12)
[2022-08-24] MEDS: oxyCODONE IR 5 MG TABLET PO PRN ×3 (02:21→08:55)
[2022-08-24] MEDS: 0.9 % SODIUM CHLORIDE 10 ML SYRINGE IV SCH ×2 (05:20→13:14)
[2022-08-24] MEDS: INSULIN LISPRO 1 UNIT/0.01 ML UNIT SQ SCH ×2 (08:12→12:49)
[2022-08-24] MEDS: ACETAMINOPHEN 500 MG TABLET PO PRN (08:52)
[2022-08-24] MEDS: DOCUSATE SODIUM 100 MG CAPSULE PO SCH (08:52)
[2022-08-24] MEDS: ENOXAPARIN 40 MG/0.4 ML SYRINGE SQ SCH (08:53)
[2022-08-24] MEDS: BISOPROLOL 5 MG TABLET PO SCH (08:53)
[2022-08-24] MEDS: LISINOPRIL 20 MG TABLET PO SCH (08:53)
[2022-08-24] MEDS: MUPIROCIN OINT 2% 22GM NARES SCH (08:53)
--- NOTE | 2022-08-24 10:03 | General Surgery Progress Note ---
SUBJECTIVE Subjective Patient information: Note initiated : 08/24/22 at 9:54 am Service Date, if different from initiated Date: [] Patient: Arik Sauer 52 y/o F admitted on 08/18/22 for sepsis. Chief Complaint: [] Principal diagnosis: Bilateral purulent cellulitis Additional PMFSH (Level 3 Only): Patient seen on rounds with BETTY Prieto RNmail list librarian manager. POD # 2. Primary dressing changed. Wounds examined. Constitutional Vitals: Vital Signs Temp Pulse Resp BP Pulse Ox O2 Del Method O2 Flow Rate 98.4 F 61 16 168/80 100 Nasal Cannula 2 08/24/22 08:00 08/24/22 08:00 08/24/22 08:00 08/24/22 08:00 08/24/22 08:00 08/24/22 08:00 08/24/22 08:00 Period Temp Pulse Resp BP Sys/Bowie Pulse Ox O2 Del Method O2 Flow Rate Last 24 Hr 97.3 F-99.1 F 56-67 16-20 150-187/60-80 98-100 Nasal Cannula- Room Air 2-2 Intake and Output 08/23/22 08/24/22 08/24/22 19:59 03:59 11:59 Intake Total 039 021 2519 Output Total 250 1050 400 Balance 230 -810 640 Weight 271 lb 4.8 oz 272 lb 4.8 oz Intake & Output: Intake & Output 08/23/22 08/24/22 08/24/22 19:59 03:59 11:59 Intake Total 750 928 2077 Output Total 250 1050 400 Balance 230 -810 640 Weight 271 lb 4.8 oz 272 lb 4.8 oz Intake: Oral 057 423 3077 Output: Void Amount 250 1050 400 Other: Meal Dinner Tuna salad/crackers Breakfast Percent of Meal Consumed 100% 100% 100% Feeding Ability Independent Independent Independent Urine Appearance Clear Clear Urine Color Yellow Yellow Urine Odor Normal Exam: AVSS. No interval changes BINDU. BOTH legs and RIGHT 2nd toe wounds are clean. Granulating well. Loosening slough should clear with dressing changes. OK to ambulate FWB OK for Physical Therapy. Awaits PICC line and D/C planning. A/P Narrative A/P Narrative: Assessment: Progressing well. ID recommendations appreciated. Progress/wound care reviewed. Awaits D/C to short term rehab.? Plan of Treatment: Plan: Full weight bearing both legs. Elevate both legs at least 30 -40 minutes 3-4 times day. Wound Care: Clean with VASHE. Dwell time 5 minutes. Apply Silvasorb, Adaptic and Kerlix /ACW x 3 week. Antibiotics per ID recommendations. Please schedule wound clinic f/u in 1 week after D/C. Time Spent With Patient Time: Total time spent is greater than 50% in coordination of care (as documented) at patient's floor/unit and/or counseling patient: Initial: Total time with patient: 55 - 74 minutes
[2022-08-24] MEDS: VANCOMYCIN 1,500 MG in 0.9 % SODIUM CHLORIDE 500 ML IV SCH (10:10)
--- NOTE | 2022-08-24 11:13 | Discharge Summary ---
Discharge Provider Provider IMPORTANT FOLLOW-UP INFORMATION FOR PCP: 1. Wound care per instructions 2. F/u in wound clinic 3. Antibiotics for 2 weeks starting from time of debridement 4. F/u outpatient ID clinic 5. obtain weekly cbc+diff, cmp, esr, crp levels while on IV antibiotics Patient information: Note initiated : 08/24/22 at 11:09 am Service Date, if different from initiated Date: [] Patient: Arik Sauer 52 y/o F admitted on 08/18/22 for sepsis. Chief Complaint: [Failulre to thrive/leg wounds] Date of admission: 08/18/22 09:11 Discharge date: 08/24/22 Primary care physician: Reanna Morris PA-C Consults: 08/18/22 Consult to Physician [CONS] Stat Comment: Consulting Provider: Fadi Valderrama Reason For Exam: Physician to Consult 08/18/22 12:19 Consult to Physician [CONS] Routine Comment: bilateral lower extemity wounds with sepsis Consulting Provider: Luciano Keith Reason For Exam: Physician to Consult 08/22/22 14:04 Consult to Physician [CONS] Routine Comment: Consulting Provider: Roland Valdes - ID Reason For Exam: Physician to Consult COURSE Hospital Course Hospital course: Interval history: I took over the care of this patient on Monday at which point she received multiple days of IV antibiotics. On presentation, she was covered in feces and there is concerns for serious self-neglect. She had necrotic bilateral lower extremity wounds and underwent debridement August 22. Telemetry infectious disease followed up with her as she had polymicrobial wound cultures growing group B strep, MRSA, and Pseudomonas. Assessment: 52 year old female with multiple comorbidities listed below admitted for sepsis secondary to lower extremity cellulitis secondary to chronic lower extremity wounds. #Resolved sepsis likely secondary to lower extremity cellulitis #1 out of 2 blood cultures positive for Streptococcus pyogenes #Wound swab cultures positive for MRSA and Pseudomonas #Chronic and nonhealing lower extremity wounds #Type 2 diabetes mellitus, hemoglobin A1c 7.8 #Hypertension, poorly controlled #Chronic diastolic heart failure #Pulmonary hypertension #COPD with chronic hypoxic (2-3 L/min) #Seronegative rheumatoid arthritis vs psoriatic arthritis #Chronic back pain #History of MRSA #ROXIE on CPAP #Mood disorder, unspecified #Obesity BMI 44 Plan -Vancomycin IV per pharmacy and Cefepime.->Tele-ID rec 14d course of CTX, stop Vanco upon d/c. Place midline today. Polymicrobial wound culture growth (GBS, MRSA, Pseudomonas) -Follow all blood cultures. -Wound care team following for lower extremity wounds, Dr Pang planning for debridement in [place] tomorrow. -Continue bisoprolol 2.5 daily, increase lisinopril to 40 mg daily. -Labetalol IV as needed for extremely elevated BP. -Correction humalog SSI-medium dose, holding home metformin. -Scheduled Duoneb and as needed albuterol neb. -Analgesics for back pain. -PT and OT. -CPAP at bedtime. -Diabetic diet/n.p.o. after midnight. -DVT prophylaxis: Lovenox -Disposition: Inpatient MedSurg. The patient will probably discharge home with home health in 1 to 2 days. Follow-up in the wound care clinic. Discharge diagnosis: Bilateral necrotic leg wound status postdebridement, streptococcal pyogenes Time Spent with Patient Time attestation: Total time spent providing and/or coordinating discharge services: Time spent: Greater than 30 minutes EXAM Constitutional Vitals: Temp Pulse Resp BP Pulse Ox O2 Del Method O2 Flow Rate 98.4 F 61 16 168/80 100 Nasal Cannula 2 08/24/22 08:00 08/24/22 08:00 08/24/22 08:00 08/24/22 08:00 08/24/22 08:00 08/24/22 08:00 08/24/22 08:00 General appearance: average body habitus Head Head exam: Present atraumatic, normal inspection and normocephalic Eye Eye exam: Present EOMI, normal appearance and PERRL; Absent conjunctival injection ENT ENT exam: Present normal exam; Absent mucous membranes dry Neck Neck exam: Present full ROM; Absent lymphadenopathy Respiratory Respiratory exam: Present normal respiratory exam and CTAB; Absent decreased breath sounds, respiratory distress or wheezes Cardiovascular Cardiovascular exam: Present normal rate and rhythm and RRR; Absent JVD GI/Abdominal GI/Abdominal exam: Present normal bowel sounds and soft; Absent diminished bowel sounds, distended, guarding, mass, rebound or tenderness Neurological Exam Neurological exam: Present alert, CN II-XII intact and oriented X3 Psychiatric Psychiatric exam: Present normal affect and normal mood Skin Skin exam: Present intact and warm; Absent erythema, pallor, petechiae or rash Discharge Data Data Completed and Pending Labs on day of discharge: Labs from last 24 hours 08/24/22 07:55 Vancomycin Trough 9.5 Preliminary micro results at discharge 08/20/22 10:10 Blood Culture - Preliminary Blood 08/20/22 10:03 Blood Culture - Preliminary Blood 08/22/22 12:36 Gram Stain - Preliminary Leg - Right 08/22/22 12:36 Gram Stain - Preliminary Leg - Lower Left Discharge Plan Patient/Caregiver Discharge Instructions Activity: increase activity as tolerated Prescriptions: New ceftriaxone 2 gram Recon Soln 2 g IV Q24H 12 Days Qty: 25 0RF Continued cetirizine 10 mg tablet 10 mg PO QDAY albuterol sulfate [Proventil HFA] 90 mcg/actuation HFA aerosol inhaler 2 puff INHALATION Q6H PRN (Reason: Shortness Of Breath) ibuprofen 800 mg tablet 600 - 800 mg PO Q6 PRN (Reason: Pain) ondansetron 4 mg tablet,disintegrating 4 mg PO .Q4-6H PRN (Reason: Nausea) hydrocortisone [Anti-Itch (HC)] 1 % cream 1 applic topical BID PRN (Reason: itching) metformin 500 mg tablet extended release 24 hr 1,000 mg PO BID nystatin 100,000 unit/gram cream 1 applic topical BID magnesium hydroxide [Milk of Magnesia] 400 mg/5 mL Suspension 30 ml PO QDAY PRN (Reason: Constipation) No Action oxycodone 30 mg tablet 30 mg PO Q4-6H PRN (Reason: Pain) Patient Comments: "ran out of the prescription" Other Ambulatory Orders: Outpatient Midline Catheter Care (Daily) Location: None Selected Ordered By: Марина Joya OT Discharge Order (Routine) Location: None Selected Ordered By: Марина Joya Physical Therapy at Discharge - General (Routine) Location: None Selected Ordered By: Марина Joya Follow Up Plan Follow up with: Reanna Morris PA-C [Primary Care Provider] - Patient Disposition: Xfer [facility] Plan of Treatment: Plan: Full weight bearing both legs. Elevate both legs at least 30 -40 minutes 3-4 times day. Wound Care: Clean with VASHE. Dwell time 5 minutes. Apply Silvasorb, Adaptic and Kerlix /ACW x 3 week. Antibiotics per ID recommendations. Please schedule wound clinic f/u in 1 week after D/C. Prognosis: Fair Rehab Potential: Good I certify that the patient requires SNF services: Yes Overall status at discharge: patient is progressing back to baseline Discharge Orders: Discharge Order (Routine); Ordered 08/24/22 Ordered By: Марина Joya
[2022-08-24] MEDS: cefTRIAXone 2 GM in DEXTROSE 5% IN WATER 50 ML IV SCH (11:39)
[2022-08-24] MEDS: HYDROmorphone 0.5 MG/0.5 ML SYRINGE IV PRN (12:00)
[2022-08-24] MEDS ORDERED: 0.9 % SODIUM CHLORIDE 10 ML SYRINGE IV SCH (21:00)
--- NOTE | 2022-09-23 09:52 | Operative Note ---
DATE OF OPERATION: 08/22/2022 AMENDMENT TO OP NOTED DICTATED 08/22/[address] LUCIANO BYERS: NOTE: This is in reference to the procedures performed of surgical debridement, pulse lavage irrigation of the wounds, and tissue from the right and left leg for culture and sensitivities. This debridement was carried to the level of the subcutaneous tissue, adipose tissue, fat and fascia for all three wounds. VD:shani Job ID: [id number] Doc ID: [id number] Luciano Byers MD
== END 2022-08-24 12:30 | DRG 854 ==
LOC: ED 01:43 → ICU 09:11 → MEDSUR 08-19 15:01
PROVIDERS: ADMIT Internal Medicine; ATTEND Student in an Organized Health Care Education/Training Program

== ENCOUNTER 2022-11-27 07:27 | Inpatient (IN) ==
[2022-11-27] MEDS ORDERED: 0.9 % SODIUM CHLORIDE 1,000 ML IV ONE (08:23)
--- NOTE | 2022-11-27 08:42 | Emergency Department Note ---
HPI General Chief complaint: Extremity Injury, Lower Stated complaint: shortness of breath Time Seen by Provider: 11/27/22 08:23 Source: EMS Mode of arrival: wheelchair Limitations: no limitations History of Present Illness HPI Narrative: Narrative: Patient presents ED via with complaints of not feeling well. MS there is a strong order of body flush when one enters the room. Patient states that her legs were last attended to approximately 6 days ago. She has had bilateral lower extremity infection for a while. States she is not currently taking any antibiotics. Patient that she just feels weak and drained. States she was sweating profusely. Patient denies nausea, vomiting, cardiac chest pain, heart palpitations, shortness of breath, hemoptysis. Patient that she was following with wound care but has not seen them in 2 weeks. Patient denies any other alleviating or aggravating factors. Related Data Home Medications Medication Instructions Recorded Confirmed cetirizine 10 mg tablet 10 mg PO QDAY 04/20/18 09/09/22 oxycodone 30 mg tablet 30 mg PO Q4-6H PRN Pain 04/20/18 09/09/22 albuterol sulfate 90 mcg/actuation 2 puff inhalation Q6H PRN 05/13/21 09/09/22 aerosol inhaler (Proventil HFA) Shortness Of Breath hydrocortisone 1 % topical cream 1 applic topical BID PRN itching 05/13/21 09/09/22 (Anti-Itch (hydrocortisone)) ibuprofen 800 mg tablet 600 - 800 mg PO Q6 PRN Pain 05/13/21 09/09/22 metformin 500 mg tablet,extended 1,000 mg PO BID 05/13/21 09/09/22 release 24 hr nystatin 100,000 unit/gram topical 1 applic topical BID 05/13/21 09/09/22 cream ondansetron 4 mg disintegrating 4 mg PO .Q4-6H PRN Nausea 05/13/21 09/09/22 tablet magnesium hydroxide 400 mg/5 mL 30 ml PO QDAY PRN Constipation 08/18/22 09/09/22 oral suspension (Milk of Magnesia) Previous Rx's Medication Instructions Recorded oxycodone 10 mg tablet 10 mg PO Q4H PRN Pain #30 tabs 08/24/22 cephalexin 500 mg capsule 500 mg PO TID 10 days #30 caps 11/27/22 Allergies Allergy/AdvReac Type Severity Reaction Status Date / Time Sulfa (Sulfonamide Allergy Mild Hives Verified 09/09/22 09:30 Antibiotics) Cyclobenzaprine Allergy Unknown Unknown Verified 09/09/22 09:30 morphine AdvReac Intermediate Hallucinati Verified 09/09/22 09:30 ons fentanyl AdvReac Mild Headache Verified 09/09/22 09:30 tramadol AdvReac Mild Headache Verified 09/09/22 09:30 Review of Systems ROS ROS Narrative: Narrative: All systems ED: reviewed and negative except as stated. 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) Restrictive lung disease (Chronic) Anxiety disorder (Chronic) Dermatophytosis (Chronic) Dependence on supplemental oxygen (Chronic) Foot pain, right (Chronic) Bipolar disorder, unspecified (Chronic) High risk medication use (Chronic) Groin rash (Chronic) Paresthesia of both hands (Chronic) Sciatica (Chronic) Foot joint pain (Chronic) Hand joint pain (Chronic) Agoraphobia (Chronic) Migraine (Chronic) Osteoarthritis (Chronic) Thyroid nodule (Chronic) Atopic eczema (Chronic) Herpes simplex (Chronic) Tobacco use (Chronic) snf current use of non-steroidal anti-inflammatories (NSAID) (Chronic) snf (current) use of opiate analgesic (Chronic) Moderate major depression (Chronic) Lumbar radiculitis (Chronic) Degenerative disc disease, lumbar (Chronic) Degenerative disc disease, thoracic (Chronic) Primary generalized (osteo)arthritis (Chronic) Antinuclear factor positive (Chronic) Sicca syndrome (Chronic) Psoriatic arthritis (Chronic) Allergic rhinitis (Chronic) COPD (chronic obstructive pulmonary disease) (Chronic) GERD (gastroesophageal reflux disease) (Chronic) Hypothyroidism (Chronic) Aortic stenosis (Chronic) Diastolic dysfunction (Chronic) Hypertension (Chronic) Diabetes mellitus type II, uncontrolled (Chronic) Rheumatoid arthritis (Chronic) Medical History Agoraphobia Allergic rhinitis Antinuclear factor positive Anxiety disorder Aortic stenosis Atopic eczema Bipolar disorder, unspecified COPD (chronic obstructive pulmonary disease) Degenerative disc disease, lumbar Degenerative disc disease, thoracic Dependence on supplemental oxygen Dermatophytosis Diabetes mellitus type II, uncontrolled Diastolic dysfunction Disorder of intervertebral disc of lumbar spine Foot joint pain Foot pain, right GERD (gastroesophageal reflux disease) Groin rash Hand joint pain Heart murmur Herpes simplex High risk medication use Hypertension Hypothyroidism snf (current) use of opiate analgesic snf current use of non-steroidal anti-inflammatories (NSAID) Lumbar radiculitis Migraine Moderate major depression Osteoarthritis Paresthesia of both hands Primary generalized (osteo)arthritis Psoriatic arthritis Restrictive lung disease Rheumatoid arthritis Sciatica Sicca syndrome Thyroid nodule Tobacco use Surgical History History of appendectomy (~1983) History of arthroscopy of right knee History of cholecystectomy (~1998) History of D&C Multiple History of left oophorectomy (~1983) History of shoulder surgery (~1996) History of thyroidectomy (~1991) History of tonsillectomy (~1983) Family History Father , 60 Heart disease Heart disease Substance abuse, Onset Age: 14 Obesity, Onset Age: 16 Myocardial infarction, Onset Age: 35 Hypertension, Onset Age: 40 Sleep disorder, Onset Age: 40 Sister Kidney disease Hypertension, Onset Age: 30 Myocardial infarction, Onset Age: 40 Obesity, Onset Age: 18 Heart disease, Onset Age: 35 Arthritis, Onset Age: 35 Substance abuse, Onset Age: 13 Disorder of thyroid gland, Onset Age: 14 Sleep disorder, Onset Age: 35 Mother , age 69 Crohn's disease Multiple sclerosis, Onset Age: 29 Myocardial infarction, Onset Age: 42 Arthritis, Onset Age: 30 Disorder of thyroid gland, Onset Age: 25 Disorder of lung, Onset Age: 40 Heart disease, Onset Age: 42 Uncle Substance abuse Maternal Diabetes mellitus, Onset Age: 55 Maternal Grandmother , age 87 Anxiety disorder, Onset Age: 8 Maternal Cerebrovascular accident, Onset Age: 87 Maternal Arthritis, Onset Age: 40 Maternal Dementia, Onset Age: 82 Maternal Disorder of thyroid gland, Onset Age: 50 Maternal Osteoporosis Maternal and paternal Obesity Maternal and paternal Hypertension, Onset Age: 50 Paternal Heart disease, Onset Age: 50 Paternal Disorder of lung, Onset Age: 40 Paternal Brother Substance abuse, Onset Age: 14 Disorder of thyroid gland, Onset Age: 14 Aunt Migraine, Onset Age: 30 Maternal Anxiety disorder, Onset Age: 5 Maternal Obesity, Onset Age: 30 Maternal Depressive disorder, Onset Age: 15 Maternal Hypertension, Onset Age: 50 Maternal Osteoporosis, Onset Age: 50 Maternal Substance abuse, Onset Age: 12 Maternal Arthritis, Onset Age: 35 Maternal Family/Other , age 34 Kidney disease Malignant neoplastic disease, Onset Age: 32 Hypertension Substance abuse Malignant tumor of cervix Obesity Grandfather , age 72 Myocardial infarction, Onset Age: 55 Maternal Malignant neoplastic disease Maternal Heart disease Maternal Arthritis Maternal Social History Smoking Status: Former smoker Alcohol Intake Frequency: does not drink Substance Use: does not use Exam Narrative Narrative: Narrative: General Limitations: no limitations General appearance: Absent in distress ENT ENT: Present normal oropharynx and mucous membranes moist Respiratory Respiratory: Present normal lung sounds bilaterally; Absent respiratory distress Cardiovascular Cardiovascular: Present regular rate and normal rhythm Adbominal Abdominal: Present soft; Absent tenderness Extremities Extremities: Present normal capillary refill Expanded Lower Extremity Leg image: 1. By lower extremity erythema, warmth tenderness to palpation with multiple wounds and drainage Neurological Neurological: Present alert and oriented X3 Psychiatric Psychiatric: Present normal affect and normal mood Skin Skin: Present other (Per above under extremity evaluation) Course Course Course Narrative: Patient was evaluated for complaints of bilateral lower extremity wounds and not feeling well. Patient was hemodynamically stable. We unwrapped her legs and patient had open wounds on the bilateral legs with surrounding cellulitis, erythema and warmth. Patient does not meet sepsis criteria as she is not tachycardic, hypotensive, tachypneic or febrile. Blood cultures were obtained patient given IV Rocephin. She was given some IV fluids. CT bilateral lower extremity obtained to evaluate for osteomyelitis and there were negative for any acute bony abnormality. Patient be discharged home. She is to follow-up with wound care within 24 to 48 hours. Will discharge home with oral Keflex p.o. 3 times daily. Patient follow proper wound care instructions. The legs were cleaned and wrapped by nursing staff. Patient expressed verbal understanding and agreement of plan Vital Signs Vital signs: Vital Signs Temperature 97 F 11/27/22 07:33 Pulse Rate 79 11/27/22 07:33 Respiratory Rate 16 11/27/22 07:33 Blood Pressure 97/76 11/27/22 07:33 Pulse Oximetry (%) 99 11/27/22 07:33 Oxygen Delivery Method Nasal Cannula 11/27/22 07:33 Oxygen Flow Rate (L/min) 3 11/27/22 07:33 Temperature 97 F 11/27/22 07:33 Pulse Rate 53 L 11/27/22 09:32 Respiratory Rate 16 11/27/22 07:33 Blood Pressure 107/52 11/27/22 09:32 Pulse Oximetry (%) 100 11/27/22 09:32 Oxygen Delivery Method Nasal Cannula 11/27/22 07:33 Oxygen Flow Rate (L/min) 3 11/27/22 07:33 MDM MDM Narrative Medical decision making narrative: Narrative: Differential Diagnosis Differential Diagnosis: Sepsis, osteomyelitis, cellulitis Medical Records Medical records reviewed: Yes I reviewed the patient's medical records. Lab Data Lab results reviewed: Yes I reviewed the patient's lab results. 11/27/22 09:00 Labs: Lab Results 11/27/22 11/27/22 Range/Units 08:59 09:11 POC Hct 32.0 L (36-48) POC VBG pH 7.25 L (7.32-7.42) POC VBG pCO2 at Temp 76.2 H* (41-51) POC VBG pO2 21 L (25-40) POC VBG HCO3 33.5 H (24-28) POC VBG Total CO2 36.0 H (25-29) POC Venous O2 Sat 25.0 L (40-70) POC VBG Base Excess 6.0 H* (-2-2) VBG Lactic Acid 1.6 (0.5-2) POC Sodium 141 (133-145) POC Potassium 2.8 L* (3.3-5.1) POC Chloride 99 (96-108) POC Total CO2 33.0 H (22-30) POC Anion Gap 13.0 (8.0-16.0) POC BUN 35 H (6-20) POC Creatinine 2.0 H (0.6-1.2) POC Glucose 191 H (70-105) POC WB Ioniz Calcium 1.20 (1.16-1.32) Radiology Data Radiology results reviewed: Yes I reviewed the patient's radiology results. Radiology results narrative: CT bilateral lower extremity obtained with image reviewed myself no obvious osteomyelitis Core Measures AMI Core Measures Followed: Yes Discharge Plan Patient/Caregiver Discharge Instructions Pt seen by ITALIAN LECTURER/PA only: No Clinical Impression: Bilateral cellulitis of lower leg, Open wound, lower leg Activity: resume usual activities as tolerated Instructions: Wound Infection (DC), Cellulitis (DC) Activity Restrictions/Additional Instructions: Follow-up wound care within 24 to 48 hours Use antibiotics as prescribed Seek medical attention symptoms worsen Patient Disposition: Home, Self-Care Condition: Good Follow up with: Luciano Keith MD [Physician] - 11/28/22 (Bilateral lower extremity wound with cellulitis, no osteomyelitis) Prescriptions: New cephalexin 500 mg capsule 500 mg PO TID 10 Days Qty: 30 0RF No Action oxycodone 30 mg tablet 30 mg PO Q4-6H PRN (Reason: Pain) Patient Comments: "ran out of the prescription" cetirizine 10 mg tablet 10 mg PO QDAY albuterol sulfate [Proventil HFA] 90 mcg/actuation HFA aerosol inhaler 2 puff INHALATION Q6H PRN (Reason: Shortness Of Breath) ibuprofen 800 mg tablet 600 - 800 mg PO Q6 PRN (Reason: Pain) ondansetron 4 mg tablet,disintegrating 4 mg PO .Q4-6H PRN (Reason: Nausea) hydrocortisone [Anti-Itch (HC)] 1 % cream 1 applic topical BID PRN (Reason: itching) metformin 500 mg tablet extended release 24 hr 1,000 mg PO BID nystatin 100,000 unit/gram cream 1 applic topical BID magnesium hydroxide [Milk of Magnesia] 400 mg/5 mL Suspension 30 ml PO QDAY PRN (Reason: Constipation) oxycodone 10 mg Tablet 10 mg PO Q4H PRN (Reason: Pain) Qty: 30 0RF
[2022-11-27] MEDS ORDERED: cefTRIAXone 2 GM in DEXTROSE 5% IN WATER 50 ML IV ONE (09:10)
[2022-11-27 09:15] LABS: POC Calcium, Ionized 1.2 (1.16-1.32); POC Potassium 2.8 (3.3-5.1)
[2022-11-27] MEDS ORDERED: POTASSIUM CHLORIDE 40 MEQ in DEXTROSE 5% IN WATER 500 ML IV ONE (09:46)
[2022-11-27] MEDS ORDERED: POTASSIUM CHLORIDE 20 MEQ TABLET PO ONE (09:46)
[2022-11-27 09:47] LABS: Basophils # (Auto) 0.04 K/mcL (0.00-0.30); Basophils % (Auto) 0.5 % (0.0-2.0); Eosinophils # (Auto) 0.21 K/mcL (0.00-0.70); Eosinophils % (Auto) 2.4 % (0.0-7.0); Hematocrit 32.5 % (34.1-44.9); Hemoglobin 9.7 g/dL (11.2-15.7); Lymphocytes # (Auto) 2.37 K/mcL (1.50-4.80); Lymphocytes % (Auto) 27.3 % (15.5-49.0); Mean Corpuscular HGB Conc 29.8 g/dL (31.0-36.0); Mean Platelet Volume 9.8 fL (8.8-12.5); Monocytes # (Auto) 0.87 K/mcL (0.10-0.90); Platelet Count 294 K/mcL (140-440); RBC 3.42 M/mcL (3.59-5.38); Red Cell Distribution Width 16.8 % (11.5-14.5); WBC 8.7 K/mcL (4.5-11.0)
[2022-11-27] MEDS ORDERED: KETOROLAC 30 MG/ML VIAL IV ONE (09:51)
[2022-11-27] MEDS ORDERED: ACETAMINOPHEN 325 MG TABLET PO ONE (09:51)
[2022-11-27 10:01] LABS: ALT/SGPT 18 U/L (<40); AST/SGOT 18 U/L (<32); Albumin 3.3 gm/dL (3.2-5.2); Alkaline Phosphatase 145 U/L (39-117); Bilirubin,Direct < 0.2 mg/dL (0-0.3); Bilirubin,Total 0.3 mg/dL (0.1-1.0); Globulin 3.9 gm/dL (2.2-3.7)
[2022-11-27] MEDS ORDERED: 0.9 % SODIUM CHLORIDE 500 ML IV ONE (10:57)
--- NOTE | 2022-11-27 15:02 | Cat Scan Report ---
CLINICAL INFORMATION: Leg pain and swelling. Evaluate for osteomyelitis COMPARISON: None. TECHNIQUE: 0.625 mm helical slices were obtained from the distal left femoral diaphysis through the calf, ankle and foot. And following reconstruction, 2.5 mm sagittal, coronal and axial reformations were then processed. The exam was reviewed at bone and soft tissue windows. The exam was performed using radiation dose optimization techniques including, but not limited to, automated exposure control, adjustment of the mA and/or kV according to patient size and use of iterative reconstruction technique. FINDINGS: There is no evidence of osteomyelitis. Remote avulsion fracture of the tibial medial malleolus appreciated. Moderate patellofemoral and severe medial tibiofemoral degenerative change appreciated. The remaining joint spaces are unremarkable. Muscle and fascial planes are normal. There is moderate inflammation in the subcutaneous fat throughout the calf and ankle. IMPRESSION: Cellulitis in the subcutaneous fat of the calf and ankle. There is no discrete abscess, myositis or evidence of osteomyelitis. Moderate patellofemoral and severe medial tibiofemoral degenerative changes Remote avulsion fracture-tip of the medial malleolus Interpreted and Authenticated by: Alexandro Tariq 11/27/22
[2022-11-27 15:13] LABS: POC Calcium, Ionized 1.16 (1.16-1.32); POC Creatinine 1.5 (0.6-1.2); POC Potassium 3.7 (3.3-5.1)
--- NOTE | 2022-11-27 16:01 | XRay Report ---
CLINICAL INFORMATION: Hypercapnia COMPARISON: 08/18/2022 portable and two view baseline study 04/27/2006 TECHNIQUE: Vertebral FINDINGS: Moderate cardiomegaly is unchanged. Mediastinum is unremarkable. Pulmonary vasculature is moderately congested with equivocal peribronchial vascular edema. Small infiltrate developing in the right base. No effusion IMPRESSION: Mild CHF. Small right basilar infiltrate Interpreted and Authenticated by: Alexandro Tariq 11/27/22
--- NOTE | 2022-11-27 16:54 | Internal Med History&Physical ---
HPI History of Present Illness Patient information: Note initiated : 11/27/22 at 4:28 pm Service Date, if different from initiated Date: [] Patient: Arik Sauer a 52 y/o F admitted on for shortness of breath. Chief Complaint: [] History of present illness: Ms. Sauer is a 52 year old female with history of COPD, ROXIE, chronic hypoxic respiratory failure on 2-3 L oxygen, pulmonary hypertension, chronic nonhealing lower extremity wounds, HFpEF, diabetes mellitus 2, hypertension. seronegative rheumatoid arthritis versus psoriatic arthritis, chronic pain, morbid obesity BMI over 44, mood disorder was last hospitalized in August 2022 for sepsis se condary to polymicrobial lower extremity cellulitis, wound culture grew MRSA, Pseudomonas aeruginosa along with other poorly microbes, bacteremia with Streptococcus pyogenes patient completed 14 days course of ceftriaxone per ID. Patient now presenting with not feeling well. She had been following up with wound clinic, Dr Keith, until 2-3 weeks ago. She was just discharged from [facility] 2 weeks ago and home health nurse was to visit her however due to some confusion about her home address visiting nurse was not able to see her until 4 days ago. At that time according to patient visiting nurse unwrapped her wounds and advised her to go to ER however she did not have a ride at the time. However in the past few days she has not been feeling well she is feeling weak, drained and had been sweating profusely intermittently. She also reported some chills. She has obstructive sleep apnea and supposed to be on CPAP but has not used it for about a year now. She denied any fever, chest pain, palpitations, nausea, vomiting, shortness of breath, hemoptysis, sputum production. On presentation patient was hemodynamically stable. Patient legs were unwrapped and demonstrates chronic bilateral lower extremity wounds with some warmth. CT bilateral lower extremity obtained showed no evidence of osteomyelitis or abscess, cellulitic changes in the subcutaneous fat of calf and ankle. Labs showed normal white cell count of 8.7, chronic anemia with hemoglobin 9.7. VBG's with evidence of hypercapnia CO2 68, she had normal CO2 of 48 around 3 months ago concerning for acute change. hest x-ray showed moderate cardiomegaly unchanged, pulmonary vasculature was prominent and appeared somewhat congested, no pleural effusion. Possible mild CHF, small right basilar infiltrate. COVID and flu test negative. Her weakness may be secondary to hypercapnia. Blood cultures were obtained and patient was given ceftriaxone. Patient was placed on BiPAP. Patient will be admitted to PCU. Review of system 14 point review of system completed and was negative except mentioned above Physical examination General Limitations: no limitations General appearance: Absent in distress ENT ENT: Present normal oropharynx and mucous membranes moist Respiratory Respiratory: Present normal lung sounds bilaterally; Absent respiratory distress Cardiovascular Cardiovascular: Present regular rate and normal rhythm Adbominal Abdominal: Present soft; Absent tenderness Extremities Extremities: Present normal capillary refill Expanded Lower Extremity Bilateral lower extremities has multiple wounds with associated erythema of left lower extremity more than right. There is a tender area on the lateral aspect of upper thigh with red streaking and also on medial lower thigh without any involvement of groin area. There is drainage from multiple wounds more of serosanguineous. Of wound on right lower extremity lateral aspect has brownish scab and appears somewhat necrotic. Neurological Neurological: Present alert and oriented X3 Psychiatric Psychiatric: Present normal affect and normal mood Skin Skin: Present other (Per above under extremity evaluation) Assessment and plan #Acute respiratory failure with hypercapnia #COPD exacerbation, mild #Cellulitis left lower extremity and infected chronic nonhealing bilateral lower extremity wounds #Acute kidney injury, serum creatinine 1.5 up from baseline of 0.8. Hold nephrotoxic's including ibuprofen #Type 2 diabetes mellitus, most recent HbA1c 7.8 #Hypertension, poorly controlled #HFpEF, chronic diastolic heart failure, acute exacerbation. Obtain BNP. #Pulmonary hypertension, moderate 50-70 mmHg pulmonary artery pressure #Chronic hypoxia (2-3 L/min) #Seronegative rheumatoid arthritis vs psoriatic arthritis #Chronic pain, had been on opioids, weaned off #History of MRSA #ROXIE on CPAP, noncompliant with CPAP for over a year now #Mood disorder, unspecified #Morbid obesity BMI 44, complicating all aspects of care, weight reduction advised Plan Admit to PCU Start patient on BiPAP DuoNebs, budesonide For cellulitis left lower extremity, start patient on vancomycin per pharmacy and Zosyn. Patient with history of MRSA and Pseudomonas. Consulted Dr. Keith for wound care consult and possible OR debridement Follow blood cultures Obtain proBNP, CRP, ESR Continue antihypertensive medication Medium dose insulin sliding scale Hold nephrotoxic's including ibuprofen Monitor renal functions Oxycodone and Dilaudid for back pain and lower extremity pain PT and OT. CPAP at bedtime and during naps Diabetic diet/n.p.o. after midnight. DVT prophylaxis with SCDs Full code Critical care time taken > 70 minutes PFSH PFSH All Active Problems (Updated 11/27/22 @ 15:31 by Mor Eckert DO) Bilateral cellulitis of lower leg (Acute) Open wound, lower leg (Acute) Chronic respiratory failure with hypercapnia (Acute) Acute hyperkalemia (Acute) Diarrhea (Acute) History of MRSA infection (Acute) Abscess of foot including toes (Acute) Bacteremia due to Streptococcus (Acute) Cellulitis (Acute) Sepsis (Acute) Heart murmur (Chronic) 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) Restrictive lung disease (Chronic) Anxiety disorder (Chronic) Dermatophytosis (Chronic) Dependence on supplemental oxygen (Chronic) Foot pain, right (Chronic) Bipolar disorder, unspecified (Chronic) High risk medication use (Chronic) Groin rash (Chronic) Paresthesia of both hands (Chronic) Sciatica (Chronic) Foot joint pain (Chronic) Hand joint pain (Chronic) Agoraphobia (Chronic) Migraine (Chronic) Osteoarthritis (Chronic) Thyroid nodule (Chronic) Atopic eczema (Chronic) Herpes simplex (Chronic) Tobacco use (Chronic) FPC current use of non-steroidal anti-inflammatories (NSAID) (Chronic) FPC (current) use of opiate analgesic (Chronic) Moderate major depression (Chronic) Lumbar radiculitis (Chronic) Degenerative disc disease, lumbar (Chronic) Degenerative disc disease, thoracic (Chronic) Primary generalized (osteo)arthritis (Chronic) Antinuclear factor positive (Chronic) Sicca syndrome (Chronic) Psoriatic arthritis (Chronic) Allergic rhinitis (Chronic) COPD (chronic obstructive pulmonary disease) (Chronic) GERD (gastroesophageal reflux disease) (Chronic) Hypothyroidism (Chronic) Aortic stenosis (Chronic) Diastolic dysfunction (Chronic) Hypertension (Chronic) Diabetes mellitus type II, uncontrolled (Chronic) Rheumatoid arthritis (Chronic) Medical History Agoraphobia Allergic rhinitis Antinuclear factor positive Anxiety disorder Aortic stenosis Atopic eczema Bipolar disorder, unspecified COPD (chronic obstructive pulmonary disease) Degenerative disc disease, lumbar Degenerative disc disease, thoracic Dependence on supplemental oxygen Dermatophytosis Diabetes mellitus type II, uncontrolled Diastolic dysfunction Disorder of intervertebral disc of lumbar spine Foot joint pain Foot pain, right GERD (gastroesophageal reflux disease) Groin rash Hand joint pain Heart murmur Herpes simplex High risk medication use Hypertension Hypothyroidism 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-steroidal anti-inflammatories (NSAID) Lumbar radiculitis Migraine Moderate major depression Osteoarthritis Paresthesia of both hands Primary generalized (osteo)arthritis Psoriatic arthritis Restrictive lung disease Rheumatoid arthritis Sciatica Sicca syndrome Thyroid nodule Tobacco use Surgical History History of appendectomy (~1983) History of arthroscopy of right knee History of cholecystectomy (~1998) History of D&C Multiple History of left oophorectomy (~1983) History of shoulder surgery (~1996) History of thyroidectomy (~1991) History of tonsillectomy (~1983) Family History Father , 60 Heart disease Heart disease Substance abuse, Onset Age: 14 Obesity, Onset Age: 16 Myocardial infarction, Onset Age: 35 Hypertension, Onset Age: 40 Sleep disorder, Onset Age: 40 Sister Kidney disease Hypertension, Onset Age: 30 Myocardial infarction, Onset Age: 40 Obesity, Onset Age: 18 Heart disease, Onset Age: 35 Arthritis, Onset Age: 35 Substance abuse, Onset Age: 13 Disorder of thyroid gland, Onset Age: 14 Sleep disorder, Onset Age: 35 Mother , age 69 Crohn's disease Multiple sclerosis, Onset Age: 29 Myocardial infarction, Onset Age: 42 Arthritis, Onset Age: 30 Disorder of thyroid gland, Onset Age: 25 Disorder of lung, Onset Age: 40 Heart disease, Onset Age: 42 Uncle Substance abuse Maternal Diabetes mellitus, Onset Age: 55 Maternal Grandmother , age 87 Anxiety disorder, Onset Age: 8 Maternal Cerebrovascular accident, Onset Age: 87 Maternal Arthritis, Onset Age: 40 Maternal Dementia, Onset Age: 82 Maternal Disorder of thyroid gland, Onset Age: 50 Maternal Osteoporosis Maternal and paternal Obesity Maternal and paternal Hypertension, Onset Age: 50 Paternal Heart disease, Onset Age: 50 Paternal Disorder of lung, Onset Age: 40 Paternal Brother Substance abuse, Onset Age: 14 Disorder of thyroid gland, Onset Age: 14 Aunt Migraine, Onset Age: 30 Maternal Anxiety disorder, Onset Age: 5 Maternal Obesity, Onset Age: 30 Maternal Depressive disorder, Onset Age: 15 Maternal Hypertension, Onset Age: 50 Maternal Osteoporosis, Onset Age: 50 Maternal Substance abuse, Onset Age: 12 Maternal Arthritis, Onset Age: 35 Maternal Family/Other , age 34 Kidney disease Malignant neoplastic disease, Onset Age: 32 Hypertension Substance abuse Malignant tumor of cervix Obesity Grandfather , age 72 Myocardial infarction, Onset Age: 55 Maternal Malignant neoplastic disease Maternal Heart disease Maternal Arthritis Maternal Social History lives independently: Yes marital status: occupational status: disabled sexually active: No physical activity: none smoking status: Former smoker alcohol intake frequency: does not drink substance use type: does not use seatbelt use: always working smoke detector in home: Yes carbon monox detector in home: Yes firearms in home: No MEDS/ALLERGIES Home Medications and Allergies Home Medications Medication Instructions Recorded Confirmed Type cetirizine 10 mg tablet 10 mg PO QDAY 04/20/18 09/09/22 History oxycodone 30 mg tablet 30 mg PO Q4-6H PRN Pain 04/20/18 09/09/22 History albuterol sulfate 90 mcg/actuation 2 puff inhalation Q6H PRN 05/13/21 09/09/22 History aerosol inhaler (Proventil HFA) Shortness Of Breath hydrocortisone 1 % topical cream 1 applic topical BID PRN itching 05/13/21 09/09/22 History (Anti-Itch (hydrocortisone)) ibuprofen 800 mg tablet 600 - 800 mg PO Q6 PRN Pain 05/13/21 09/09/22 History metformin 500 mg tablet,extended 1,000 mg PO BID 05/13/21 09/09/22 History release 24 hr nystatin 100,000 unit/gram topical 1 applic topical BID 05/13/21 09/09/22 History cream ondansetron 4 mg disintegrating 4 mg PO .Q4-6H PRN Nausea 05/13/21 09/09/22 History tablet magnesium hydroxide 400 mg/5 mL 30 ml PO QDAY PRN Constipation 08/18/22 09/09/22 History oral suspension (Milk of Magnesia) oxycodone 10 mg tablet 10 mg PO Q4H PRN Pain #30 tabs 08/24/22 09/09/22 Rx cephalexin 500 mg capsule 500 mg PO TID 10 days #30 caps 11/27/22 Rx Allergies Allergy/AdvReac Type Severity Reaction Status Date / Time Sulfa (Sulfonamide Allergy Mild Hives Verified 09/09/22 09:30 Antibiotics) Cyclobenzaprine Allergy Unknown Unknown Verified 09/09/22 09:30 morphine AdvReac Intermediate Hallucinati Verified 09/09/22 09:30 ons fentanyl AdvReac Mild Headache Verified 09/09/22 09:30 tramadol AdvReac Mild Headache Verified 09/09/22 09:30 EXAM Constitutional Vitals: Temp Pulse Resp BP Pulse Ox O2 Del Method O2 Flow Rate 97 F 63 25 H 109/78 99 Nasal Cannula 3 11/27/22 07:33 11/27/22 16:01 11/27/22 15:46 11/27/22 16:01 11/27/22 16:01 11/27/22 07:33 11/27/22 07:33 DATA Data Completed and Pending Labs: Labs from last 24 hours 11/27/22 11/27/22 11/27/22 15:10 15:07 10:50 WBC RBC Hgb Hct POC Hct 29.0 L MCV MCH MCHC RDW Plt Count MPV Immature Gran % (Auto) Neut % (Auto) Lymph % (Auto) [place] % (Auto) Eos % (Auto) Baso % (Auto) Lymph # (Auto) [place] # (Auto) Eos # (Auto) Baso # (Auto) Immature Gran # Absolute Neutrophils POC VBG pH 7.26 L 7.25 L POC VBG pCO2 at Temp 68.0 H* 74.1 H* POC VBG pO2 27 18 L POC VBG HCO3 30.6 H 32.4 H POC VBG Total CO2 33.0 H 35.0 H POC Venous O2 Sat 40.0 19.0 L POC VBG Base Excess 4.0 H* 5.0 H* VBG Lactic Acid 0.7 1.0 POC Sodium 141 POC Potassium 3.7 POC Chloride 101 POC Total CO2 30.0 POC Anion Gap 15.0 POC BUN 33 H POC Creatinine 1.5 H POC Glucose 161 H POC WB Ioniz Calcium 1.16 Total Bilirubin Direct Bilirubin AST ALT Alkaline Phosphatase Total Protein Albumin Globulin 11/27/22 11/27/22 11/27/22 09:11 09:00 09:00 WBC 8.7 RBC 3.42 L Hgb 9.7 L Hct 32.5 L POC Hct 32.0 L MCV 95.0 MCH 28.4 MCHC 29.8 L RDW 16.8 H Plt Count 294 MPV 9.8 Immature Gran % (Auto) 0.8 H Neut % (Auto) 59.0 Lymph % (Auto) 27.3 [place] % (Auto) 10.0 Eos % (Auto) 2.4 Baso % (Auto) 0.5 Lymph # (Auto) 2.37 [place] # (Auto) 0.87 Eos # (Auto) 0.21 Baso # (Auto) 0.04 Immature Gran # 0.07 H Absolute Neutrophils 5.13 POC VBG pH POC VBG pCO2 at Temp POC VBG pO2 POC VBG HCO3 POC VBG Total CO2 POC Venous O2 Sat POC VBG Base Excess VBG Lactic Acid POC Sodium 141 POC Potassium 2.8 L* POC Chloride 99 POC Total CO2 33.0 H POC Anion Gap 13.0 POC BUN 35 H POC Creatinine 2.0 H POC Glucose 191 H POC WB Ioniz Calcium 1.20 Total Bilirubin 0.3 Direct Bilirubin < 0.2 AST 18 ALT 18 Alkaline Phosphatase 145 H Total Protein 7.2 Albumin 3.3 Globulin 3.9 H 11/27/22 08:59 WBC RBC Hgb Hct POC Hct MCV MCH MCHC RDW Plt Count MPV Immature Gran % (Auto) Neut % (Auto) Lymph % (Auto) [place] % (Auto) Eos % (Auto) Baso % (Auto) Lymph # (Auto) [place] # (Auto) Eos # (Auto) Baso # (Auto) Immature Gran # Absolute Neutrophils POC VBG pH 7.25 L POC VBG pCO2 at Temp 76.2 H* POC VBG pO2 21 L POC VBG HCO3 33.5 H POC VBG Total CO2 36.0 H POC Venous O2 Sat 25.0 L POC VBG Base Excess 6.0 H* VBG Lactic Acid 1.6 POC Sodium POC Potassium POC Chloride POC Total CO2 POC Anion Gap POC BUN POC Creatinine POC Glucose POC WB Ioniz Calcium Total Bilirubin Direct Bilirubin AST ALT Alkaline Phosphatase Total Protein Albumin Globulin A/P Time Spent With Patient Time: Total time spent is greater than 50% in coordination of care (as documented) at patient's floor/unit and/or counseling patient:
[2022-11-27] MEDS ORDERED: DEXTROSE 50% 50 ML VIAL IV PRN (17:41)
[2022-11-27] MEDS ORDERED: DEXTROSE 31 GM ORAL.SUSP PO PRN (17:41)
[2022-11-27] MEDS ORDERED: ONDANSETRON 4 MG/2 ML VIAL IV PRN (18:58)
[2022-11-27] MEDS ORDERED: VANCOMYCIN PER PHARMACY IV ONE (18:58)
[2022-11-27] MEDS ORDERED: HYDROCORTISONE CRM 1% TUBE 30GM TOPICAL PRN (18:58)
[2022-11-27] MEDS ORDERED: MAGNESIUM HYDROXIDE 30 ML ORAL.SUSP PO PRN (18:58)
[2022-11-27] MEDS: IPRATROPIUM/ALBUTEROL 3 ML AMPUL.NEB NEB SCH ×2 (19:13→19:52)
[2022-11-27] MEDS: HYDROmorphone 0.5 MG/0.5 ML SYRINGE IV PRN ×2 (19:24→23:28)
[2022-11-27] MEDS: 0.9 % SODIUM CHLORIDE 10 ML SYRINGE IV SCH ×3 (19:24→22:27)
[2022-11-27] MEDS ORDERED: HYDROmorphone 0.5 MG/0.5 ML SYRINGE ONE (19:26)
[2022-11-27] MEDS ORDERED: ONDANSETRON 4 MG ODT TABLET PO PRN (19:26)
[2022-11-27 19:39] LABS: ALT/SGPT 19 U/L (<40); AST/SGOT 18 U/L (<32); Albumin 3.3 gm/dL (3.2-5.2); Albumin/Globulin Ratio 0.8 (1.0-2.3); Alkaline Phosphatase 139 U/L (39-117); Bilirubin,Total 0.3 mg/dL (0.1-1.0); Blood Urea Nitrogen 35 mg/dL (6-20); Calcium 9.1 mg/dL (8.6-10.4); Carbon Dioxide 26 mmol/L (22-30); Chloride 98 mmol/L (96-108); Globulin 3.9 gm/dL (2.2-3.7); Glomerular Filtration Rate 34; Glucose 186 mg/dL (70-105)
[2022-11-27] MEDS: BUDESONIDE 0.5 MG/2 ML AMPUL.NEB NEB SCH (19:52)
--- NOTE | 2022-11-27 19:55 | Cat Scan Report ---
CLINICAL INFORMATION: Respiratory failure COMPARISON: None. TECHNIQUE: 0.625 mm helical slices were obtained from the lung apices through the lung bases. Following reconstruction, 2.5 mm sagittal, coronal and axial reformatted images were processed and reviewed at multiple windows and levels. 7 mm MIP reconstructions were obtained through the lungs to optimize nodule detection.The exam was performed using radiation dose optimization techniques including, but not limited to, automated exposure control, adjustment of the mA and/or kV according to patient size and use of iterative reconstruction technique. FINDINGS: Pulmonary parenchymal windows show the lungs are clear. Pleural spaces are unremarkable-no effusions. Mediastinal windows show the heart is mildly enlarged with scattered calcific plaque in the coronary arteries is also calcification within the mitral and aortic valves.. Noncontrast and central pulmonary arteries are moderately enlarged and the main pulmonary diameter of 4.1 cm. The noncontrasted thoracic aorta is normal diameter. There is no adenopathy in the mediastinal, hilar or axillary regions. Esophagus is grossly normal. The thyroid is unremarkable. Bone windows show no osseous abnormality. Images through the superior abdomen show no abnormality. IMPRESSION: Moderate enlargement of the central pulmonary arteries suggesting pulmonary hypertension. No acute cardiopulmonary disease. Interpreted and Authenticated by: Alexandro Tariq 11/27/22
[2022-11-27] MEDS ORDERED: VANCOMYCIN 1,000 MG in 0.9 % SODIUM CHLORIDE 250 ML IV SCH (20:00)
[2022-11-27] MEDS ORDERED: VANCOMYCIN 1,500 MG in 0.9 % SODIUM CHLORIDE 500 ML IV SCH (20:00)
[2022-11-27] MEDS: NYSTATIN CRM 1 DOSE TUBE TOPICAL SCH (20:39)
[2022-11-27] MEDS: oxyCODONE IR 5 MG TABLET PO PRN (20:43)
[2022-11-27] MEDS: INSULIN LISPRO 1 UNIT/0.01 ML UNIT SQ SCH (20:54)
[2022-11-27] MEDS: metFORMIN 500 MG TAB.XL.24H PO SCH (20:55)
[2022-11-27] MEDS: PIPERACILLIN SODIUM/TAZOBACTAM 4.5 GM in DEXTROSE 5% IN WATER 50 ML IV SCH (22:26)
[2022-11-28] MEDS: IPRATROPIUM/ALBUTEROL 3 ML AMPUL.NEB NEB SCH ×4 (00:40→19:25)
[2022-11-28] MEDS: oxyCODONE IR 5 MG TABLET PO PRN ×4 (02:45→23:38)
[2022-11-28] MEDS: 0.9 % SODIUM CHLORIDE 10 ML SYRINGE IV SCH ×5 (02:46→21:00)
[2022-11-28] MEDS: PIPERACILLIN SODIUM/TAZOBACTAM 4.5 GM in DEXTROSE 5% IN WATER 50 ML IV SCH ×4 (02:46→21:00)
[2022-11-28] MEDS: HYDROmorphone 0.5 MG/0.5 ML SYRINGE IV PRN ×5 (04:02→20:02)
[2022-11-28 06:40] LABS: Basophils # (Auto) 0.03 K/mcL (0.00-0.30); Basophils % (Auto) 0.4 % (0.0-2.0); Eosinophils # (Auto) 0.17 K/mcL (0.00-0.70); Hematocrit 29.8 % (34.1-44.9); Hemoglobin 8.8 g/dL (11.2-15.7); Lymphocytes # (Auto) 1.88 K/mcL (1.50-4.80); Lymphocytes % (Auto) 22.6 % (15.5-49.0); Mean Cell Volume 96.1 fL (80.0-100.0); Mean Corpuscular HGB Conc 29.5 g/dL (31.0-36.0); Mean Platelet Volume 10.1 fL (8.8-12.5); Monocytes # (Auto) 0.71 K/mcL (0.10-0.90); Monocytes % (Auto) 8.5 % (1.0-12.0); Neutrophils % (Auto) 65.2 % (38.0-78.0); Platelet Count 261 K/mcL (140-440); Red Cell Distribution Width 16.7 % (11.5-14.5); WBC 8.3 K/mcL (4.5-11.0)
[2022-11-28 07:20] LABS: ALT/SGPT 18 U/L (<40); AST/SGOT 18 U/L (<32); Albumin 2.7 gm/dL (3.2-5.2); Albumin/Globulin Ratio 0.8 (1.0-2.3); Alkaline Phosphatase 132 U/L (39-117); Bilirubin,Total 0.3 mg/dL (0.1-1.0); Blood Urea Nitrogen 25 mg/dL (6-20); Calcium 8.3 mg/dL (8.6-10.4); Carbon Dioxide 27 mmol/L (22-30); Chloride 104 mmol/L (96-108); Globulin 3.6 gm/dL (2.2-3.7); Glomerular Filtration Rate 58; Glucose 159 mg/dL (70-105)
[2022-11-28] MEDS: BUDESONIDE 0.5 MG/2 ML AMPUL.NEB NEB SCH ×2 (08:30→19:25)
[2022-11-28] MEDS: INSULIN LISPRO 1 UNIT/0.01 ML UNIT SQ SCH ×4 (08:39→20:59)
[2022-11-28] MEDS: CETIRIZINE 10 MG TABLET PO SCH (08:44)
[2022-11-28] MEDS: metFORMIN 500 MG TAB.XL.24H PO SCH ×2 (08:44→21:00)
[2022-11-28] MEDS ORDERED: VANCOMYCIN PER PHARMACY IV SCH (09:15)
--- NOTE | 2022-11-28 10:31 | Internal Med Progress Note ---
SUBJECTIVE Subjective Patient information: Note initiated : 11/28/22 at 10:23 am Service Date, if different from initiated Date: [] Patient: Arik Sauer 52 y/o F admitted on 11/27/22 for respiratory failure. Chief Complaint: [] Additional PMFSH (Level 3 Only): Ms. Sauer is a 52 year old female with history of COPD, ROXIE, chronic hypoxic respiratory failure on 2-3 L oxygen, pulmonary hypertension, chronic nonhealing lower extremity wounds, HFpEF, diabetes mellitus 2, hypertension. seronegative rheumatoid arthritis versus psoriatic arthritis, chronic pain, morbid obesity BMI over 44, mood disorder was last hospitalized in August 2022 for sepsis secondary to polymicrobial lower extremity cellulitis, wound culture grew MRSA, Pseudomonas aeruginosa along with other poorly microbes, bacteremia with Streptococcus pyogenes patient completed 14 days course of ceftriaxone per ID. Patient now presenting with not feeling well. She had been following up with wound clinic, Dr Keith, until 2-3 weeks ago. She was just discharged from SNF 2 weeks ago and home health nurse was to visit her however due to some confusion about her home address visiting nurse was not able to see her until 4 days ago. At that time according to patient visiting nurse unwrapped her wounds and advised her to go to ER however she did not have a ride at the time. However in the past few days she has not been feeling well she is feeling weak, drained and had been sweating profusely intermittently. She also reported some chills. She has obstructive sleep apnea and supposed to be on CPAP but has not used it for about a year now. She denied any fever, chest pain, palpitations, nausea, vomiting, shortness of breath, hemoptysis, sputum production. On presentation patient was hemodynamically stable. Patient legs were unwrapped and demonstrates chronic bilateral lower extremity wounds with some warmth. CT bilateral lower extremity obtained showed no evidence of osteomyelitis or abscess, cellulitic changes in the subcutaneous fat of calf and ankle. Labs showed normal white cell count of 8.7, chronic anemia with hemoglobin 9.7. VBG's with evidence of hypercapnia CO2 68, she had normal CO2 of 48 around 3 months ago concerning for acute change. hest x-ray showed moderate cardiomegaly unchanged, pulmonary vasculature was prominent and appeared somewhat congested, no pleural effusion. Possible mild CHF, small right basilar infiltrate. COVID and flu test negative. Her weakness may be secondary to hypercapnia. Blood cultures were obtained and patient was given ceftriaxone. Patient was placed on BiPAP. Patient will be admitted to PCU. 11/28. Patient reported she was on BiPAP until 5 AM this morning and then she removed it. Hemoglobin is down to 8.8 from 9.7 yesterday which is still her baseline range. ABG shows pH of 734, PCO2 of 57 improved from before. Patient has been noncompliant with her CPAP which was prescribed at for her ROXIE. Her acute kidney injury is improving creatinine down to 1.1 from 1.7 yesterday. RN reported patient is requesting Dilaudid every 4 hours. Review of system 14 point review of system completed and was negative except mentioned above Physical examination General Limitations: no limitations General appearance: Alert and awake, sitting up in bed, in no acute distress ENT ENT: Present normal oropharynx and mucous membranes moist Respiratory Respiratory: Present normal lung sounds bilaterally; Absent respiratory distress Cardiovascular Cardiovascular: Present regular rate and normal rhythm Adbominal Abdominal: Present soft; Absent tenderness Extremities Extremities: Present normal capillary refill Expanded Lower Extremity Bilateral lower extremities has multiple wounds with associated erythema of left lower extremity more than right. The tender area on the left upper thigh and streaking is improving. wound on right lower extremity lateral aspect has brownish scab and appears somewhat necrotic. Neurological Neurological: Present alert and oriented X3 Psychiatric Psychiatric: Present normal affect and normal mood Skin Skin: Present other (Per above under extremity evaluation) Assessment and plan #Acute respiratory failure with hypercapnia #COPD exacerbation, mild #Cellulitis left lower extremity and infected chronic nonhealing bilateral lower extremity wounds #Acute kidney injury, creatinine 1.7 on admission, up from baseline of 0.8.. Serum creatinine improved to 1.1 today. Patient requesting pain medication will give ibuprofen #Type 2 diabetes mellitus, most recent HbA1c 7.8 #Hypertension, poorly controlled #HFpEF, chronic diastolic heart failure, acute exacerbation. BNP elevated at 2884. #Pulmonary hypertension, moderate 50-70 mmHg pulmonary artery pressure #Chronic hypoxia (2-3 L/min) #Seronegative rheumatoid arthritis vs psoriatic arthritis #Chronic pain, had been on opioids, weaned off #History of MRSA #ROXIE on CPAP, noncompliant with CPAP for over a year now #Noncompliance with medical therapy #Mood disorder, unspecified #Morbid obesity BMI 44, complicating all aspects of care, weight reduction advised Plan Respiratory failure is improving, still some respiratory acidosis. BiPAP as needed. Recommend CPAP at night JhonoNehina bhattiesonide For cellulitis left lower extremity, patient on vancomycin per pharmacy and Zosyn. Patient with history of MRSA and Pseudomonas. Dr. Keith consulted for wound care consult and possible OR debridement Follow blood cultures CRP 5.4, ESR 58 Continue antihypertensive medication Medium dose insulin sliding scale Hold nephrotoxic's including ibuprofen Monitor renal functions Oxycodone and Dilaudid for back pain and lower extremity pain, encouraged her to minimize use of opioids PT and OT. CPAP at bedtime and during naps Diabetic diet/n.p.o. after midnight. DVT prophylaxis with SCDs Full code Critical care time taken > 50 minutes Constitutional Vitals: Vital Signs Temp Pulse Resp BP Pulse Ox O2 Del Method O2 Flow Rate 98.1 F 60 24 H 158/88 100 Nasal Cannula 2 11/28/22 08:14 11/28/22 08:46 11/28/22 08:46 11/28/22 08:14 11/28/22 08:46 11/28/22 08:30 11/28/22 08:30 Period Temp Pulse Resp BP Sys/Bowie Pulse Ox O2 Del Method O2 Flow Rate Last 24 Hr 97.5 F-98.2 F 52-72 13-27 91-167/42-104 94-100 BiPAP-Nasal Cannula 2-3 Intake and Output 11/27/22 11/28/22 11/28/22 19:59 03:59 11:59 Intake Total 520 1430 290 Output Total 500 525 550 Balance 20 905 -260 Weight 119.096 kg Intake & Output: Intake & Output 11/27/22 11/28/22 11/28/22 19:59 03:59 11:59 Intake Total 520 1430 290 Output Total 500 525 550 Balance 20 905 -260 Weight 119.096 kg Intake: IV 520 550 50 Zosyn 4.5 gm In Dextrose 5% in 50 50 Water 50 ml @ 100 mls/hr IV Q6H [facility] Rx#:[id number] Potassium Chloride 40 Meq In 520 Dextrose 5% in Water 500 ml @ 130 mls/hr IV ONCE ONE Rx#: [id number] Vancomycin 1,500 mg In Sodium 500 Chloride 0.9% 500 ml @ 333.3 mls/hr IV ONCE [facility] Rx#: [id number] Oral 880 240 Output: Void Amount 500 525 550 Other: Meal Breakfast Percent of Meal Consumed p&j sandwi 100% Feeding Ability Independent Urine Appearance Clear Clear Urine Color Yellow Yellow OBJ DATA Labs 11/28/22 05:22 11/28/22 05:22 Labs: Abnormal Lab Results 11/28/22 11/28/22 11/28/22 07:43 05:22 05:22 RBC 3.10 L Hgb 8.8 L Hct 29.8 L POC Hct MCHC 29.5 L RDW 16.7 H Immature Gran % (Auto) 1.3 H Immature Gran # 0.11 H ESR POC pH 7.34 L POC pCO2 57.3 H* POC HCO3 31.2 H POC ABG Base Excess 5.0 H POC VBG pH POC VBG pCO2 at Temp POC VBG pO2 POC VBG HCO3 POC VBG Total CO2 POC Venous O2 Sat POC VBG Base Excess POC Potassium Potassium 3.2 L POC Total CO2 33.0 H POC BUN BUN 25 H Creatinine POC Creatinine Glucose 159 H POC Glucose Calcium 8.3 L Alkaline Phosphatase 132 H C-Reactive Protein NT-Pro-B Natriuret Pep Albumin 2.7 L Globulin Albumin/Globulin Ratio 0.8 L 11/27/22 11/27/22 11/27/22 19:09 17:20 15:10 RBC Hgb Hct POC Hct 29.0 L MCHC RDW Immature Gran % (Auto) Immature Gran # ESR POC pH POC pCO2 POC HCO3 POC ABG Base Excess POC VBG pH POC VBG pCO2 at Temp POC VBG pO2 POC VBG HCO3 POC VBG Total CO2 POC Venous O2 Sat POC VBG Base Excess POC Potassium Potassium 3.0 L POC Total CO2 POC BUN 33 H BUN 35 H Creatinine 1.7 H POC Creatinine 1.5 H Glucose 186 H POC Glucose 161 H Calcium Alkaline Phosphatase 139 H C-Reactive Protein NT-Pro-B Natriuret Pep 2884.0 H Albumin Globulin 3.9 H Albumin/Globulin Ratio 0.8 L 11/27/22 11/27/22 11/27/22 15:07 10:50 09:11 RBC Hgb Hct POC Hct 32.0 L MCHC RDW Immature Gran % (Auto) Immature Gran # ESR POC pH POC pCO2 POC HCO3 POC ABG Base Excess POC VBG pH 7.26 L 7.25 L POC VBG pCO2 at Temp 68.0 H* 74.1 H* POC VBG pO2 18 L POC VBG HCO3 30.6 H 32.4 H POC VBG Total CO2 33.0 H 35.0 H POC Venous O2 Sat 19.0 L POC VBG Base Excess 4.0 H* 5.0 H* POC Potassium 2.8 L* Potassium POC Total CO2 33.0 H POC BUN 35 H BUN Creatinine POC Creatinine 2.0 H Glucose POC Glucose 191 H Calcium Alkaline Phosphatase C-Reactive Protein NT-Pro-B Natriuret Pep Albumin Globulin Albumin/Globulin Ratio 11/27/22 11/27/22 11/27/22 09:00 09:00 09:00 RBC Hgb Hct POC Hct MCHC RDW Immature Gran % (Auto) Immature Gran # ESR 58 H POC pH POC pCO2 POC HCO3 POC ABG Base Excess POC VBG pH POC VBG pCO2 at Temp POC VBG pO2 POC VBG HCO3 POC VBG Total CO2 POC Venous O2 Sat POC VBG Base Excess POC Potassium Potassium POC Total CO2 POC BUN BUN Creatinine POC Creatinine Glucose POC Glucose Calcium Alkaline Phosphatase 145 H C-Reactive Protein 5.40 H NT-Pro-B Natriuret Pep Albumin Globulin 3.9 H Albumin/Globulin Ratio 11/27/22 11/27/22 09:00 08:59 RBC 3.42 L Hgb 9.7 L Hct 32.5 L POC Hct MCHC 29.8 L RDW 16.8 H Immature Gran % (Auto) 0.8 H Immature Gran # 0.07 H ESR POC pH POC pCO2 POC HCO3 POC ABG Base Excess POC VBG pH 7.25 L POC VBG pCO2 at Temp 76.2 H* POC VBG pO2 21 L POC VBG HCO3 33.5 H POC VBG Total CO2 36.0 H POC Venous O2 Sat 25.0 L POC VBG Base Excess 6.0 H* POC Potassium Potassium POC Total CO2 POC BUN BUN Creatinine POC Creatinine Glucose POC Glucose Calcium Alkaline Phosphatase C-Reactive Protein NT-Pro-B Natriuret Pep Albumin Globulin Albumin/Globulin Ratio Meds: Medications Albuterol/Ipratropium (Ipratropium/Albuterol 3 Ml Ampul.Neb) 3 ml NEB Q6HRT [facility] Last Admin: 11/28/22 08:30 Dose: 3 ml Budesonide (Budesonide 0.5 Mg/2 Ml Ampul.Neb) 0.5 mg NEB Q12 [facility] Last Admin: 11/28/22 08:30 Dose: 0.5 mg Cetirizine HCl (Cetirizine 10 Mg Tablet) 10 mg PO QDAY [facility] Last Admin: 11/28/22 08:44 Dose: 10 mg Dextrose (Dextrose 50% 50 Ml Vial) 0 ml IV UD PRN PRN Reason: Per Sliding Scale Diagnostic Test (Pha) (Accu-Chek 1 Each Strip) 1 each FS ACHS [facility] Last Admin: 11/28/22 08:39 Dose: 1 each Glucose (Dextrose 31 Gm Oral.Susp) 15 gm PO PRN PRN PRN Reason: Hypoglycemia Hydrocortisone (Hydrocortisone Crm 1% Tube 30gm) 0 dose TOPICAL BIDP PRN PRN Reason: itching Hydromorphone HCl (Hydromorphone 0.5 Mg/0.5 Ml Syringe) 0.5 mg IV Q4HP PRN; Protocol PRN Reason: Per Pain Protocol Last Admin: 11/28/22 08:05 Dose: 0.5 mg Piperacillin Sod/Tazobactam (Sod 4.5 gm/ Dextrose) 50 mls @ 100 mls/hr IV Q6H [facility]; Protocol Last Admin: 11/28/22 10:20 Dose: 100 mls/hr Vancomycin HCl 1,500 mg/ (Sodium Chloride) 500 mls @ 333.3 mls/hr IV Q12H [facility] Insulin Human Lispro (Insulin Lispro 1 Unit/0.01 Ml Unit) 0 unit SQ [facility]; Protocol Last Admin: 11/28/22 08:39 Dose: 2 unit Magnesium Hydroxide (Magnesium Hydroxide 30 Ml Oral.Susp) 30 ml PO DAILYP PRN PRN Reason: Constipation Metformin HCl (Metformin 500 Mg Tab.Xl.24h) 1,000 mg PO BID [facility] Last Admin: 11/28/22 08:44 Dose: 1,000 mg Nystatin (Nystatin Crm 1 Dose Tube) 1 dose TOPICAL BID [facility] Last Admin: 11/27/22 20:39 Dose: Not Given Ondansetron HCl (Ondansetron 4 Mg Odt Tablet) 4 mg PO Q4HP PRN PRN Reason: Nausea And Vomiting Ondansetron HCl (Ondansetron 4 Mg/2 Ml Vial) 4 mg IV Q4HP PRN; Protocol PRN Reason: Nausea And Vomiting Oxycodone HCl (Oxycodone Ir 5 Mg Tablet) 5 mg PO Q6HP PRN PRN Reason: Pain Last Admin: 11/28/22 02:45 Dose: 5 mg Sodium Chloride (0.9 % Sodium Chloride 10 Ml Syringe) 10 ml IV Q8 [facility] Last Admin: 11/28/22 04:04 Dose: 10 ml Vancomycin HCl (Vancomycin Per Pharmacy) 1 order IV UD [facility]; Protocol A/P Time Spent With Patient Time: Total time spent is greater than 50% in coordination of care (as documented) at patient's floor/unit and/or counseling patient: QUALITY VTE Deep Vein Thrombosis/Pulmonary Embolism Present on Admission: No
[2022-11-28] MEDS ORDERED: POTASSIUM CHLORIDE 40 MEQ in DEXTROSE 5% IN WATER 500 ML IV SCH (11:00)
[2022-11-28] MEDS: VANCOMYCIN 1,500 MG in 0.9 % SODIUM CHLORIDE 500 ML IV SCH ×2 (11:07→21:16)
[2022-11-28] MEDS: METHOCARBAMOL 500 MG TABLET PO PRN ×3 (11:46→23:17)
[2022-11-28] MEDS: hydrALAZINE 20 MG/ML VIAL IV PRN (11:46)
[2022-11-28] MEDS: NYSTATIN CRM 1 DOSE TUBE TOPICAL SCH ×2 (11:47→20:00)
[2022-11-28] MEDS ORDERED: IPRATROPIUM/ALBUTEROL 3 ML AMPUL.NEB NEB ONE (12:22)
--- NOTE | 2022-11-28 13:22 | General Surgery Consult Note ---
HPI Date of Consult Consult Date: 11/28/22 Requesting physician: Emmanuel Young Consult Narrative Chief complaint: Chronic leg wounds. Reason for consult: Continuation of wound care / debridement cc:: Patient is established at wound care clinic. Reviewed ER and Hospitalist notes and events since her last encounter. She was treated in past for CSSSI and cellulitis of legs with IV antibiotics. Completed a course of Ceftriaxone for Streptococcal cellulitis. She is now admitted after being seen in ER for second time in last one week. She is currently being treated for her medical issues (CP / exacerbation of COPD) and now diarrhea r/o C.diff colitis. 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) Restrictive lung disease (Chronic) Anxiety disorder (Chronic) Dermatophytosis (Chronic) Dependence on supplemental oxygen (Chronic) Foot pain, right (Chronic) Bipolar disorder, unspecified (Chronic) High risk medication use (Chronic) Groin rash (Chronic) Paresthesia of both hands (Chronic) Sciatica (Chronic) Foot joint pain (Chronic) Hand joint pain (Chronic) Agoraphobia (Chronic) Migraine (Chronic) Osteoarthritis (Chronic) Thyroid nodule (Chronic) Atopic eczema (Chronic) Herpes simplex (Chronic) Tobacco use (Chronic) 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 (NSAID) (Chronic) exterminator helper (current) use of opiate analgesic (Chronic) Moderate major depression (Chronic) Lumbar radiculitis (Chronic) Degenerative disc disease, lumbar (Chronic) Degenerative disc disease, thoracic (Chronic) Primary generalized (osteo)arthritis (Chronic) Antinuclear factor positive (Chronic) Sicca syndrome (Chronic) Psoriatic arthritis (Chronic) Allergic rhinitis (Chronic) COPD (chronic obstructive pulmonary disease) (Chronic) GERD (gastroesophageal reflux disease) (Chronic) Hypothyroidism (Chronic) Aortic stenosis (Chronic) Diastolic dysfunction (Chronic) Hypertension (Chronic) Diabetes mellitus type II, uncontrolled (Chronic) Rheumatoid arthritis (Chronic) Medical History Agoraphobia Allergic rhinitis Antinuclear factor positive Anxiety disorder Aortic stenosis Atopic eczema Bipolar disorder, unspecified COPD (chronic obstructive pulmonary disease) Degenerative disc disease, lumbar Degenerative disc disease, thoracic Dependence on supplemental oxygen Dermatophytosis Diabetes mellitus type II, uncontrolled Diastolic dysfunction Disorder of intervertebral disc of lumbar spine Foot joint pain Foot pain, right GERD (gastroesophageal reflux disease) Groin rash Hand joint pain Heart murmur Herpes simplex High risk medication use Hypertension Hypothyroidism senior care (current) use of opiate analgesic senior care current use of non-steroidal anti-inflammatories (NSAID) Lumbar radiculitis Migraine Moderate major depression Osteoarthritis Paresthesia of both hands Primary generalized (osteo)arthritis Psoriatic arthritis Restrictive lung disease Rheumatoid arthritis Sciatica Sicca syndrome Thyroid nodule Tobacco use Surgical History History of appendectomy (~1983) History of arthroscopy of right knee History of cholecystectomy (~1998) History of D&C Multiple History of left oophorectomy (~1983) History of shoulder surgery (~1996) History of thyroidectomy (~1991) History of tonsillectomy (~1983) Family History Father , 60 Heart disease Heart disease Substance abuse, Onset Age: 14 Obesity, Onset Age: 16 Myocardial infarction, Onset Age: 35 Hypertension, Onset Age: 40 Sleep disorder, Onset Age: 40 Sister Kidney disease Hypertension, Onset Age: 30 Myocardial infarction, Onset Age: 40 Obesity, Onset Age: 18 Heart disease, Onset Age: 35 Arthritis, Onset Age: 35 Substance abuse, Onset Age: 13 Disorder of thyroid gland, Onset Age: 14 Sleep disorder, Onset Age: 35 Mother , age 69 Crohn's disease Multiple sclerosis, Onset Age: 29 Myocardial infarction, Onset Age: 42 Arthritis, Onset Age: 30 Disorder of thyroid gland, Onset Age: 25 Disorder of lung, Onset Age: 40 Heart disease, Onset Age: 42 Uncle Substance abuse Maternal Diabetes mellitus, Onset Age: 55 Maternal Grandmother , age 87 Anxiety disorder, Onset Age: 8 Maternal Cerebrovascular accident, Onset Age: 87 Maternal Arthritis, Onset Age: 40 Maternal Dementia, Onset Age: 82 Maternal Disorder of thyroid gland, Onset Age: 50 Maternal Osteoporosis Maternal and paternal Obesity Maternal and paternal Hypertension, Onset Age: 50 Paternal Heart disease, Onset Age: 50 Paternal Disorder of lung, Onset Age: 40 Paternal Brother Substance abuse, Onset Age: 14 Disorder of thyroid gland, Onset Age: 14 Aunt Migraine, Onset Age: 30 Maternal Anxiety disorder, Onset Age: 5 Maternal Obesity, Onset Age: 30 Maternal Depressive disorder, Onset Age: 15 Maternal Hypertension, Onset Age: 50 Maternal Osteoporosis, Onset Age: 50 Maternal Substance abuse, Onset Age: 12 Maternal Arthritis, Onset Age: 35 Maternal Family/Other , age 34 Kidney disease Malignant neoplastic disease, Onset Age: 32 Hypertension Substance abuse Malignant tumor of cervix Obesity Grandfather , age 72 Myocardial infarction, Onset Age: 55 Maternal Malignant neoplastic disease Maternal Heart disease Maternal Arthritis Maternal Social History lives independently: Yes marital status: occupational status: disabled sexually active: No physical activity: none smoking status: Never smoker alcohol intake frequency: does not drink substance use type: does not use seatbelt use: always working smoke detector in home: Yes carbon monox detector in home: Yes firearms in home: No MEDS/ALLERGIES Home Medications and Allergies Home Medications Medication Instructions Recorded Confirmed Type cetirizine 10 mg tablet 10 mg PO QDAY 04/20/18 11/28/22 History albuterol sulfate 90 mcg/actuation 2 puff inhalation Q6H PRN 05/13/21 11/28/22 History aerosol inhaler (Proventil HFA) Shortness Of Breath ibuprofen 800 mg tablet 600 - 800 mg PO Q6 PRN Pain 05/13/21 11/28/22 History acetaminophen 325 mg tablet 650 mg PO Q4HP PRN Pain 11/28/22 11/28/22 History bisoprolol 10 1 tab PO QDAY 11/28/22 11/28/22 History mg-hydrochlorothiazide 6.25 mg tablet furosemide 20 mg tablet 20 mg PO DAILY 11/28/22 11/28/22 History methocarbamol 500 mg tablet 500 mg PO TID 11/28/22 11/28/22 History miconazole nitrate 2 % topical 1 applic topical BID 11/28/22 11/28/22 History powder (Antifungal (miconazole)) multivitamin with minerals 1 tab PO DAILY 11/28/22 11/28/22 History (Multiple Vitamin-Minerals tablet) oxycodone 5 mg tablet 15 mg PO Q4HP PRN Pain 11/28/22 11/28/22 History potassium chloride 10 mEq 10 meq PO QDAY 11/28/22 11/28/22 History capsule,extended release Allergies Allergy/AdvReac Type Severity Reaction Status Date / Time Sulfa (Sulfonamide Allergy Mild Hives Verified 09/09/22 09:30 Antibiotics) Cyclobenzaprine Allergy Unknown Unknown Verified 09/09/22 09:30 morphine AdvReac Intermediate Hallucinati Verified 09/09/22 09:30 ons fentanyl AdvReac Mild Headache Verified 09/09/22 09:30 tramadol AdvReac Mild Headache Verified 09/09/22 09:30 Physical Examination Vital Signs Vital signs: Temp Pulse Resp BP Pulse Ox O2 Del Method O2 Flow Rate 98.1 F 101 H 22 196/69 99 Nasal Cannula 3 11/28/22 12:01 11/28/22 12:56 11/28/22 12:56 11/28/22 12:56 11/28/22 12:56 11/28/22 12:56 11/28/22 12:56 General physical appearance General physical exam: well developed, well nourished, moderate pain (When RIGHT leg dressing was taken down. ) and obese Eyes Eye exam: PERRL and normal ocular movement ENT ENT exam: normal pinna, normal nares and no congestion Head Head exam IM: Present atraumatic and normocephalic Neck Neck exam: no masses and no venous distension Cardiovascular Cardiovascular exam IM: Present normal rate and rhythm Respiratory Respiratory exam: normal expansion and normal respiratory effort Abdomen Abdomen: Present soft, non tender and bowel sounds Integumentary Integumentary: Present other (LEFT leg chronic sasis dermatitis lower half of leg and VLU Stage 3 with graulating base. NO signs of cellulitis. RIGHT leg Chronic dermatits with demaracting dry balck necrotic eschar over lower joshi region Approxiamtely 6 x 6 x 0.5 CM) Neurologic Neurologic: Present normal coordination and other (Peripheral neuropathy.) Musculoskeletal Musculoskeletal: Present normal posture Psychiatric Psychiatric: Present oriented to time, oriented to person, oriented to place, speech is normal and memory intact Results Labs 11/28/22 05:22 11/28/22 05:22 Labs: Abnormal lab results 11/27/22 11/27/22 11/27/22 Range/Units 09:00 09:00 15:07 RBC (3.59-5.38) M/mcL Hgb (11.2-15.7) g/dL Hct (34.1-44.9) % POC Hct (36-48) MCHC (31.0-36.0) g/dL RDW (11.5-14.5) % Immature Gran % (Auto) (0.0-0.5) % Immature Gran # (0.00-0.05) K/mcl ESR 58 H (0-30) mm/hr POC pH (7.35-7.45) POC pCO2 (35-45) mmHg POC HCO3 (22-26) mmHg POC Total CO2 (23-27) mmHg POC ABG Base Excess (-2-3) POC VBG pH 7.26 L (7.32-7.42) POC VBG pCO2 at Temp 68.0 H* (41-51) POC VBG HCO3 30.6 H (24-28) POC VBG Total CO2 33.0 H (25-29) POC VBG Base Excess 4.0 H* (-2-2) Potassium (3.3-5.1) mmol/L POC BUN (6-20) BUN (6-20) mg/dL Creatinine (0.6-1.1) mg/dL POC Creatinine (0.6-1.2) Glucose (70-105) mg/dL POC Glucose (70-105) Calcium (8.6-10.4) mg/dL Alkaline Phosphatase (39-117) U/L C-Reactive Protein 5.40 H (0.03-0.80) mg/dL NT-Pro-B Natriuret Pep (<125.0) pg/mL Albumin (3.2-5.2) gm/dL Globulin (2.2-3.7) gm/dL Albumin/Globulin Ratio (1.0-2.3) 11/27/22 11/27/22 11/27/22 Range/Units 15:10 17:20 19:09 RBC (3.59-5.38) M/mcL Hgb (11.2-15.7) g/dL Hct (34.1-44.9) % POC Hct 29.0 L (36-48) MCHC (31.0-36.0) g/dL RDW (11.5-14.5) % Immature Gran % (Auto) (0.0-0.5) % Immature Gran # (0.00-0.05) K/mcl ESR (0-30) mm/hr POC pH (7.35-7.45) POC pCO2 (35-45) mmHg POC HCO3 (22-26) mmHg POC Total CO2 (23-27) mmHg POC ABG Base Excess (-2-3) POC VBG pH (7.32-7.42) POC VBG pCO2 at Temp (41-51) POC VBG HCO3 (24-28) POC VBG Total CO2 (25-29) POC VBG Base Excess (-2-2) Potassium 3.0 L (3.3-5.1) mmol/L POC BUN 33 H (6-20) BUN 35 H (6-20) mg/dL Creatinine 1.7 H (0.6-1.1) mg/dL POC Creatinine 1.5 H (0.6-1.2) Glucose 186 H (70-105) mg/dL POC Glucose 161 H (70-105) Calcium (8.6-10.4) mg/dL Alkaline Phosphatase 139 H (39-117) U/L C-Reactive Protein (0.03-0.80) mg/dL NT-Pro-B Natriuret Pep 2884.0 H (<125.0) pg/mL Albumin (3.2-5.2) gm/dL Globulin 3.9 H (2.2-3.7) gm/dL Albumin/Globulin Ratio 0.8 L (1.0-2.3) 11/28/22 11/28/22 11/28/22 Range/Units 05:22 05:22 07:43 RBC 3.10 L (3.59-5.38) M/mcL Hgb 8.8 L (11.2-15.7) g/dL Hct 29.8 L (34.1-44.9) % POC Hct (36-48) MCHC 29.5 L (31.0-36.0) g/dL RDW 16.7 H (11.5-14.5) % Immature Gran % (Auto) 1.3 H (0.0-0.5) % Immature Gran # 0.11 H (0.00-0.05) K/mcl ESR (0-30) mm/hr POC pH 7.34 L (7.35-7.45) POC pCO2 57.3 H* (35-45) mmHg POC HCO3 31.2 H (22-26) mmHg POC Total CO2 33.0 H (23-27) mmHg POC ABG Base Excess 5.0 H (-2-3) POC VBG pH (7.32-7.42) POC VBG pCO2 at Temp (41-51) POC VBG HCO3 (24-28) POC VBG Total CO2 (25-29) POC VBG Base Excess (-2-2) Potassium 3.2 L (3.3-5.1) mmol/L POC BUN (6-20) BUN 25 H (6-20) mg/dL Creatinine (0.6-1.1) mg/dL POC Creatinine (0.6-1.2) Glucose 159 H (70-105) mg/dL POC Glucose (70-105) Calcium 8.3 L (8.6-10.4) mg/dL Alkaline Phosphatase 132 H (39-117) U/L C-Reactive Protein (0.03-0.80) mg/dL NT-Pro-B Natriuret Pep (<125.0) pg/mL Albumin 2.7 L (3.2-5.2) gm/dL Globulin (2.2-3.7) gm/dL Albumin/Globulin Ratio 0.8 L (1.0-2.3) Diabetes panel 11/27/22 11/28/22 Range/Units 19:09 05:22 Sodium 139 140 (133-145) mmol/L Potassium 3.0 L 3.2 L (3.3-5.1) mmol/L Chloride 98 104 (96-108) mmol/L Carbon Dioxide 26 27 (22-30) mmol/L BUN 35 H 25 H (6-20) mg/dL Creatinine 1.7 H 1.1 (0.6-1.1) mg/dL Glucose 186 H 159 H (70-105) mg/dL Calcium 9.1 8.3 L (8.6-10.4) mg/dL AST 18 18 (<32) U/L ALT 19 18 (<40) U/L Alkaline Phosphatase 139 H 132 H (39-117) U/L Total Protein 7.2 6.3 (5.9-8.4) gm/dL Albumin 3.3 2.7 L (3.2-5.2) gm/dL Calcium panel 11/27/22 11/28/22 Range/Units 19:09 05:22 Calcium 9.1 8.3 L (8.6-10.4) mg/dL Albumin 3.3 2.7 L (3.2-5.2) gm/dL Pituitary panel 11/27/22 11/28/22 Range/Units 19:09 05:22 Sodium 139 140 (133-145) mmol/L Potassium 3.0 L 3.2 L (3.3-5.1) mmol/L Chloride 98 104 (96-108) mmol/L Carbon Dioxide 26 27 (22-30) mmol/L BUN 35 H 25 H (6-20) mg/dL Creatinine 1.7 H 1.1 (0.6-1.1) mg/dL Glucose 186 H 159 H (70-105) mg/dL Calcium 9.1 8.3 L (8.6-10.4) mg/dL Adrenal panel 11/27/22 11/28/22 Range/Units 19:09 05:22 Sodium 139 140 (133-145) mmol/L Potassium 3.0 L 3.2 L (3.3-5.1) mmol/L Chloride 98 104 (96-108) mmol/L Carbon Dioxide 26 27 (22-30) mmol/L BUN 35 H 25 H (6-20) mg/dL Creatinine 1.7 H 1.1 (0.6-1.1) mg/dL Glucose 186 H 159 H (70-105) mg/dL Calcium 9.1 8.3 L (8.6-10.4) mg/dL Total Bilirubin 0.3 0.3 (0.1-1.0) mg/dL AST 18 18 (<32) U/L ALT 19 18 (<40) U/L Alkaline Phosphatase 139 H 132 H (39-117) U/L Total Protein 7.2 6.3 (5.9-8.4) gm/dL Albumin 3.3 2.7 L (3.2-5.2) gm/dL All other labs normal. A/P Narrative A/P Narrative: Assessment: Chronic Venous leg ulcers BOTH lower legs. Right >> Left lower anterior legs. Demarcating dry eschar over RIGHT lower anterior leg 6 x 6 x 0.5 CM Multiple chronic comorbidities well controlled. COPD Pulmonary Hypertension ROXIE DM2 HTN Morbid Obesity H/o positive blood c/s in past. Plan of Treatment: Plan: Local wound care. D/W LOCO CONTRERAS. MIST treatment with VASHE today. Will debride the eschar at bedside tomorrow. Time Spent With Patient Time: Total time spent is greater than 50% in coordination of care (as documented) at patient's floor/unit and/or counseling patient:
[2022-11-28] MEDS: niCARdipine 25 MG in 0.9 % SODIUM CHLORIDE 240 ML IV SCH ×3 (13:27→20:47)
[2022-11-28] MEDS ORDERED: POTASSIUM CHLORIDE 20 MEQ in DEXTROSE 5% IN WATER 250 ML IV SCH (15:00)
[2022-11-28] MEDS ORDERED: HYDROCHLOROTHIAZIDE 12.5 MG CAPSULE PO SCH (17:25)
[2022-11-28] MEDS: BISOPROLOL 5 MG TABLET PO SCH (17:55)
[2022-11-28] MEDS: HYDROCHLOROTHIAZIDE 25 MG TABLET PO SCH (18:03)
[2022-11-29] MEDS: niCARdipine 25 MG in 0.9 % SODIUM CHLORIDE 240 ML IV SCH ×2 (00:07→22:29)
[2022-11-29] MEDS: IPRATROPIUM/ALBUTEROL 3 ML AMPUL.NEB NEB SCH ×4 (00:47→19:22)
[2022-11-29] MEDS: HYDROmorphone 0.5 MG/0.5 ML SYRINGE IV PRN ×6 (00:48→23:20)
[2022-11-29] MEDS: 0.9 % SODIUM CHLORIDE 10 ML SYRINGE IV SCH ×8 (00:49→23:21)
[2022-11-29] MEDS: PIPERACILLIN SODIUM/TAZOBACTAM 4.5 GM in DEXTROSE 5% IN WATER 50 ML IV SCH ×4 (03:01→20:20)
[2022-11-29 06:14] LABS: Basophils # (Auto) 0.03 K/mcL (0.00-0.30); Basophils % (Auto) 0.4 % (0.0-2.0); Eosinophils # (Auto) 0.26 K/mcL (0.00-0.70); Eosinophils % (Auto) 3.6 % (0.0-7.0); Hemoglobin 8.4 g/dL (11.2-15.7); Lymphocytes # (Auto) 2.24 K/mcL (1.50-4.80); Lymphocytes % (Auto) 30.8 % (15.5-49.0); Mean Cell Volume 95.6 fL (80.0-100.0); Mean Platelet Volume 9.8 fL (8.8-12.5); Monocytes # (Auto) 0.58 K/mcL (0.10-0.90); Neutrophils % (Auto) 55.1 % (38.0-78.0); Platelet Count 274 K/mcL (140-440); RBC 2.93 M/mcL (3.59-5.38); Red Cell Distribution Width 16.7 % (11.5-14.5); WBC 7.3 K/mcL (4.5-11.0)
[2022-11-29 06:45] LABS: ALT/SGPT 14 U/L (<40); AST/SGOT 12 U/L (<32); Albumin 2.7 gm/dL (3.2-5.2); Albumin/Globulin Ratio 0.8 (1.0-2.3); Alkaline Phosphatase 119 U/L (39-117); Bilirubin,Total 0.4 mg/dL (0.1-1.0); Blood Urea Nitrogen 17 mg/dL (6-20); Calcium 8.3 mg/dL (8.6-10.4); Carbon Dioxide 28 mmol/L (22-30); Chloride 105 mmol/L (96-108); Globulin 3.5 gm/dL (2.2-3.7); Glomerular Filtration Rate 100; Glucose 145 mg/dL (70-105)
[2022-11-29] MEDS: BUDESONIDE 0.5 MG/2 ML AMPUL.NEB NEB SCH ×2 (07:19→19:22)
[2022-11-29] MEDS: oxyCODONE IR 5 MG TABLET PO PRN ×3 (07:29→20:27)
[2022-11-29] MEDS: INSULIN LISPRO 1 UNIT/0.01 ML UNIT SQ SCH ×4 (07:36→20:19)
[2022-11-29] MEDS: POTASSIUM CHLORIDE 10 MEQ TABLET PO SCH (09:35)
[2022-11-29] MEDS: BISOPROLOL 5 MG TABLET PO SCH (09:35)
[2022-11-29] MEDS: HYDROCHLOROTHIAZIDE 25 MG TABLET PO SCH (09:35)
[2022-11-29] MEDS: FUROSEMIDE 20 MG TABLET PO SCH (09:35)
[2022-11-29] MEDS: metFORMIN 500 MG TAB.XL.24H PO SCH ×2 (09:36→20:18)
[2022-11-29] MEDS: ACETAMINOPHEN 325 MG TABLET PO PRN (09:36)
[2022-11-29] MEDS: CETIRIZINE 10 MG TABLET PO SCH (09:36)
[2022-11-29] MEDS: NYSTATIN CRM 1 DOSE TUBE TOPICAL SCH ×2 (09:40→19:55)
[2022-11-29] MEDS: VANCOMYCIN 1,500 MG in 0.9 % SODIUM CHLORIDE 500 ML IV SCH (10:58)
--- NOTE | 2022-11-29 11:45 | Internal Med Progress Note ---
SUBJECTIVE Subjective Patient information: Note initiated : 11/29/22 at 11:43 am Service Date, if different from initiated Date: [] Patient: Arik Sauer 52 y/o F admitted on 11/27/22 for respiratory failure. Chief Complaint: [] Additional PMFSH (Level 3 Only): Ms. Sauer is a 52 year old female with history of COPD, ROXIE, chronic hypoxic respiratory failure on 2-3 L oxygen, pulmonary hypertension, chronic nonhealing lower extremity wounds, HFpEF, diabetes mellitus 2, hypertension. seronegative rheumatoid arthritis versus psoriatic arthritis, chronic pain, morbid obesity BMI over 44, mood disorder was last hospitalized in August 2022 for sepsis secondary to polymicrobial lower extremity cellulitis, wound culture grew MRSA, Pseudomonas aeruginosa along with other poorly microbes, bacteremia with Streptococcus pyogenes patient completed 14 days course of ceftriaxone per ID. Patient now presenting with not feeling well. She had been following up with wound clinic, Dr Keith, until 2-3 weeks ago. She was just discharged from SNF 2 weeks ago and home health nurse was to visit her however due to some confusion about her home address visiting nurse was not able to see her until 4 days ago. At that time according to patient visiting nurse unwrapped her wounds and advised her to go to ER however she did not have a ride at the time. However in the past few days she has not been feeling well she is feeling weak, drained and had been sweating profusely intermittently. She also reported some chills. She has obstructive sleep apnea and supposed to be on CPAP but has not used it for about a year now. She denied any fever, chest pain, palpitations, nausea, vomiting, shortness of breath, hemoptysis, sputum production. On presentation patient was hemodynamically stable. Patient legs were unwrapped and demonstrates chronic bilateral lower extremity wounds with some warmth. CT bilateral lower extremity obtained showed no evidence of osteomyelitis or abscess, cellulitic changes in the subcutaneous fat of calf and ankle. Labs showed normal white cell count of 8.7, chronic anemia with hemoglobin 9.7. VBG's with evidence of hypercapnia CO2 68, she had normal CO2 of 48 around 3 months ago concerning for acute change. hest x-ray showed moderate cardiomegaly unchanged, pulmonary vasculature was prominent and appeared somewhat congested, no pleural effusion. Possible mild CHF, small right basilar infiltrate. COVID and flu test negative. Her weakness may be secondary to hypercapnia. Blood cultures were obtained and patient was given ceftriaxone. Patient was placed on BiPAP. Patient will be admitted to PCU. 11/28. Patient reported she was on BiPAP until 5 AM this morning and then she removed it. Hemoglobin is down to 8.8 from 9.7 yesterday which is still her baseline range. ABG shows pH of 734, PCO2 of 57 improved from before. Patient has been noncompliant with her CPAP which was prescribed at for her ROXIE. Her acute kidney injury is improving creatinine down to 1.1 from 1.7 yesterday. RN reported patient is requesting Dilaudid every 4 hours. 11/29. Patient had really elevated blood pressure yesterday with systolic going into the high 200s, patient was started on nicardipine drip to control blood pressure. She was weaned off the drip this morning. Blood pressure is somewhat elevated with systolic in 140s despite receiving her hydrochlorothiazide bisoprolol and Lasix which was started this morning. Patient reports she is feeling well, no shortness of breath, no headache, no palpitations. Patient is awaiting for wound debridement Review of system 14 point review of system completed and was negative except mentioned above Physical examination General Limitations: no limitations General appearance: Alert and awake, sitting up in bed, in no acute distress ENT ENT: Present normal oropharynx and mucous membranes moist Respiratory Respiratory: Present normal lung sounds bilaterally; Absent respiratory distress Cardiovascular Cardiovascular: Present regular rate and normal rhythm Adbominal Abdominal: Present soft; Absent tenderness Extremities Extremities: Present normal capillary refill Expanded Lower Extremity Bilateral lower extremities has multiple wounds which are covered in dressing Neurological Neurological: Present alert and oriented X3 Psychiatric Psychiatric: Present normal affect and normal mood Skin Skin: Present other (Per above under extremity evaluation) Assessment and plan #Acute respiratory failure with hypercapnia #COPD exacerbation, mild #Cellulitis left lower extremity and infected chronic nonhealing bilateral lower extremity wounds #Acute kidney injury, creatinine 1.7 on admission, now back to baseline. #Type 2 diabetes mellitus, most recent HbA1c 7.8 #Hypertension, poorly controlled #HFpEF, chronic diastolic heart failure, acute exacerbation. BNP elevated at 2884. #Pulmonary hypertension, moderate 50-70 mmHg pulmonary artery pressure #Chronic hypoxia (2-3 L/min) #Seronegative rheumatoid arthritis vs psoriatic arthritis #Chronic pain, had been on opioids, weaned off #History of MRSA #ROXIE on CPAP, noncompliant with CPAP for over a year now #Noncompliance with medical therapy #Mood disorder, unspecified #Morbid obesity BMI 44, complicating all aspects of care, weight reduction advised Plan Respiratory failure is improving. Patient uses 2 to 3 L oxygen at baseline. Currently on 1 L nasal cannula oxygen. BiPAP as needed. DuoNebs, budesonide For cellulitis left lower extremity, patient on vancomycin per pharmacy and Zosyn. Patient with history of MRSA and Pseudomonas. Dr. Keith recommendations appreciated. Plan for wound debridement at bedside versus OR Follow blood cultures CRP 5.4, ESR 58 Increase hydrochlorothiazide, continue home dose antihypertensives Medium dose insulin sliding scale Hold nephrotoxic's including ibuprofen Oxycodone and Dilaudid for back pain and lower extremity pain, encouraged her to minimize use of opioids PT and OT. CPAP at bedtime and during naps Diabetic diet DVT prophylaxis with SCDs Full code Total time> 50 minutes Constitutional Vitals: Vital Signs Temp Pulse Resp BP Pulse Ox O2 Del Method O2 Flow Rate 98.9 F 74 19 144/60 94 Nasal Cannula 1 11/29/22 04:02 11/29/22 09:31 11/29/22 09:31 11/29/22 09:31 11/29/22 09:31 11/29/22 09:31 11/29/22 09:31 Period Temp Pulse Resp BP Sys/Bowie Pulse Ox O2 Del Method O2 Flow Rate Last 24 Hr 97.3 F-98.9 F 61-103 12-34 108-224/41-84 92-100 BiPAP-Room Air 1-10 Intake and Output 11/28/22 11/29/22 11/29/22 19:59 03:59 11:59 Intake Total 1422 1963 600 Output Total 20040 750 Balance -583 -387 -150 Weight 119.096 kg 119.794 kg Intake & Output: Intake & Output 11/28/22 11/29/22 11/29/22 19:59 03:59 11:59 Intake Total 1422 1963 600 Output Total 20040 750 Balance -583 -387 -150 Weight 119.096 kg 119.794 kg Intake: IV 1182 1613 Zosyn 4.5 gm In Dextrose 5% in 50 100 Water 50 ml @ 100 mls/hr IV Q6H [facility] Rx#:[id number] Potassium Chloride 20 Meq In 260 Dextrose 5% in Water 250 ml @ 130 mls/hr IV ONCE [facility] Rx#: [id number] Potassium Chloride 40 Meq In 520 Dextrose 5% in Water 500 ml @ 130 mls/hr IV ONCE [facility] Rx#: [id number] Vancomycin 1,500 mg In Sodium 500 500 Chloride 0.9% 500 ml @ 333.3 mls/hr IV Q12H [facility] Rx#: [id number] Cardene 25 MG In Sodium 372 493 Chloride 0.9% 240 ml @ 5 MG/HR 50 mls/hr IV UD [facility] Rx#: [id number] Oral 240 350 600 Output: Void Amount 2004 550 250 Urine/Stool Mix 1800 500 Other: Meal Dinner P&J sandwich Breakfast Percent of Meal Consumed 100% 100% Feeding Ability Independent Independent Urine Appearance Clear Clear Urine Color Yellow Yellow Stool Size Moderate Moderate Stool Color Brown Brown Stool Consistency Normal for Patient Loose OBJ DATA Labs 11/29/22 05:08 11/29/22 05:08 Labs: Abnormal Lab Results 11/29/22 11/29/22 11/28/22 05:08 05:08 07:43 RBC 2.93 L Hgb 8.4 L Hct 28.0 L POC Hct MCHC 30.0 L RDW 16.7 H Immature Gran % (Auto) 2.1 H Immature Gran # 0.15 H ESR POC pH 7.34 L POC pCO2 57.3 H* POC HCO3 31.2 H POC ABG Base Excess 5.0 H POC VBG pH POC VBG pCO2 at Temp POC VBG pO2 POC VBG HCO3 POC VBG Total CO2 POC Venous O2 Sat POC VBG Base Excess POC Potassium Potassium POC Total CO2 33.0 H POC BUN BUN Creatinine POC Creatinine Glucose 145 H POC Glucose Calcium 8.3 L Alkaline Phosphatase 119 H C-Reactive Protein NT-Pro-B Natriuret Pep Albumin 2.7 L Globulin Albumin/Globulin Ratio 0.8 L 11/28/22 11/28/22 11/27/22 05:22 05:22 19:09 RBC 3.10 L Hgb 8.8 L Hct 29.8 L POC Hct MCHC 29.5 L RDW 16.7 H Immature Gran % (Auto) 1.3 H Immature Gran # 0.11 H ESR POC pH POC pCO2 POC HCO3 POC ABG Base Excess POC VBG pH POC VBG pCO2 at Temp POC VBG pO2 POC VBG HCO3 POC VBG Total CO2 POC Venous O2 Sat POC VBG Base Excess POC Potassium Potassium 3.2 L 3.0 L POC Total CO2 POC BUN BUN 25 H 35 H Creatinine 1.7 H POC Creatinine Glucose 159 H 186 H POC Glucose Calcium 8.3 L Alkaline Phosphatase 132 H 139 H C-Reactive Protein NT-Pro-B Natriuret Pep Albumin 2.7 L Globulin 3.9 H Albumin/Globulin Ratio 0.8 L 0.8 L 11/27/22 11/27/22 11/27/22 17:20 15:10 15:07 RBC Hgb Hct POC Hct 29.0 L MCHC RDW Immature Gran % (Auto) Immature Gran # ESR POC pH POC pCO2 POC HCO3 POC ABG Base Excess POC VBG pH 7.26 L POC VBG pCO2 at Temp 68.0 H* POC VBG pO2 POC VBG HCO3 30.6 H POC VBG Total CO2 33.0 H POC Venous O2 Sat POC VBG Base Excess 4.0 H* POC Potassium Potassium POC Total CO2 POC BUN 33 H BUN Creatinine POC Creatinine 1.5 H Glucose POC Glucose 161 H Calcium Alkaline Phosphatase C-Reactive Protein NT-Pro-B Natriuret Pep 2884.0 H Albumin Globulin Albumin/Globulin Ratio 11/27/22 11/27/22 11/27/22 10:50 09:11 09:00 RBC Hgb Hct POC Hct 32.0 L MCHC RDW Immature Gran % (Auto) Immature Gran # ESR POC pH POC pCO2 POC HCO3 POC ABG Base Excess POC VBG pH 7.25 L POC VBG pCO2 at Temp 74.1 H* POC VBG pO2 18 L POC VBG HCO3 32.4 H POC VBG Total CO2 35.0 H POC Venous O2 Sat 19.0 L POC VBG Base Excess 5.0 H* POC Potassium 2.8 L* Potassium POC Total CO2 33.0 H POC BUN 35 H BUN Creatinine POC Creatinine 2.0 H Glucose POC Glucose 191 H Calcium Alkaline Phosphatase C-Reactive Protein 5.40 H NT-Pro-B Natriuret Pep Albumin Globulin Albumin/Globulin Ratio 11/27/22 11/27/22 11/27/22 09:00 09:00 09:00 RBC 3.42 L Hgb 9.7 L Hct 32.5 L POC Hct MCHC 29.8 L RDW 16.8 H Immature Gran % (Auto) 0.8 H Immature Gran # 0.07 H ESR 58 H POC pH POC pCO2 POC HCO3 POC ABG Base Excess POC VBG pH POC VBG pCO2 at Temp POC VBG pO2 POC VBG HCO3 POC VBG Total CO2 POC Venous O2 Sat POC VBG Base Excess POC Potassium Potassium POC Total CO2 POC BUN BUN Creatinine POC Creatinine Glucose POC Glucose Calcium Alkaline Phosphatase 145 H C-Reactive Protein NT-Pro-B Natriuret Pep Albumin Globulin 3.9 H Albumin/Globulin Ratio 11/27/22 08:59 RBC Hgb Hct POC Hct MCHC RDW Immature Gran % (Auto) Immature Gran # ESR POC pH POC pCO2 POC HCO3 POC ABG Base Excess POC VBG pH 7.25 L POC VBG pCO2 at Temp 76.2 H* POC VBG pO2 21 L POC VBG HCO3 33.5 H POC VBG Total CO2 36.0 H POC Venous O2 Sat 25.0 L POC VBG Base Excess 6.0 H* POC Potassium Potassium POC Total CO2 POC BUN BUN Creatinine POC Creatinine Glucose POC Glucose Calcium Alkaline Phosphatase C-Reactive Protein NT-Pro-B Natriuret Pep Albumin Globulin Albumin/Globulin Ratio Meds: Medications Acetaminophen (Acetaminophen 325 Mg Tablet) 650 mg PO Q6HP PRN; Protocol PRN Reason: Per Pain Protocol Last Admin: 11/29/22 09:36 Dose: 650 mg Albuterol/Ipratropium (Ipratropium/Albuterol 3 Ml Ampul.Neb) 3 ml NEB Q6HRT [facility] Last Admin: 11/29/22 07:19 Dose: 3 ml Bisoprolol Fumarate (Bisoprolol 5 Mg Tablet) 10 mg PO DAILY [facility] Last Admin: 11/29/22 09:35 Dose: 10 mg Budesonide (Budesonide 0.5 Mg/2 Ml Ampul.Neb) 0.5 mg NEB Q12 [facility] Last Admin: 11/29/22 07:19 Dose: 0.5 mg Cetirizine HCl (Cetirizine 10 Mg Tablet) 10 mg PO QDAY [facility] Last Admin: 11/29/22 09:36 Dose: 10 mg Dextrose (Dextrose 50% 50 Ml Vial) 0 ml IV UD PRN PRN Reason: Per Sliding Scale Diagnostic Test (Pha) (Accu-Chek 1 Each Strip) 1 each FS ACHS [facility] Last Admin: 11/29/22 07:36 Dose: 1 each Furosemide (Furosemide 20 Mg Tablet) 20 mg PO DAILY [facility] Last Admin: 11/29/22 09:35 Dose: 20 mg Glucose (Dextrose 31 Gm Oral.Susp) 15 gm PO PRN PRN PRN Reason: Hypoglycemia Hydralazine HCl (Hydralazine 20 Mg/Ml Vial) 10 mg IV Q4HP PRN PRN Reason: Hypertension Last Admin: 11/28/22 11:46 Dose: 10 mg Hydrochlorothiazide (Hydrochlorothiazide 25 Mg Tablet) 6.25 mg PO DAILY [facility] Last Admin: 11/29/22 09:35 Dose: 6.25 mg Hydrocortisone (Hydrocortisone Crm 1% Tube 30gm) 0 dose TOPICAL BIDP PRN PRN Reason: itching Hydromorphone HCl (Hydromorphone 0.5 Mg/0.5 Ml Syringe) 0.5 mg IV Q4HP PRN; Protocol PRN Reason: Per Pain Protocol Last Admin: 11/29/22 09:50 Dose: 0.5 mg Piperacillin Sod/Tazobactam (Sod 4.5 gm/ Dextrose) 50 mls @ 100 mls/hr IV Q6H [facility]; Protocol Last Admin: 11/29/22 09:38 Dose: 100 mls/hr Nicardipine HCl 25 mg/ Sodium (Chloride) 250 mls @ 50 mls/hr IV UD [facility]; Protocol Last Titration: 11/29/22 02:46 Dose: 0 mg/hr, 0 mls/hr Insulin Human Lispro (Insulin Lispro 1 Unit/0.01 Ml Unit) 0 unit SQ ACHS [facility]; Protocol Last Admin: 11/29/22 07:36 Dose: Not Given Magnesium Hydroxide (Magnesium Hydroxide 30 Ml Oral.Susp) 30 ml PO DAILYP PRN PRN Reason: Constipation Metformin HCl (Metformin 500 Mg Tab.Xl.24h) 1,000 mg PO BID [facility] Last Admin: 11/29/22 09:36 Dose: 1,000 mg Methocarbamol (Methocarbamol 500 Mg Tablet) 500 mg PO TIDP PRN PRN Reason: Muscle Spasm Last Admin: 11/28/22 23:17 Dose: 500 mg Nystatin (Nystatin Crm 1 Dose Tube) 1 dose TOPICAL BID [facility] Last Admin: 11/29/22 09:40 Dose: Not Given Ondansetron HCl (Ondansetron 4 Mg Odt Tablet) 4 mg PO Q4HP PRN PRN Reason: Nausea And Vomiting Ondansetron HCl (Ondansetron 4 Mg/2 Ml Vial) 4 mg IV Q4HP PRN; Protocol PRN Reason: Nausea And Vomiting Oxycodone HCl (Oxycodone Ir 5 Mg Tablet) 10 mg PO Q6HP PRN PRN Reason: Pain Last Admin: 11/29/22 07:29 Dose: 10 mg Potassium Chloride (Potassium Chloride 10 Meq Tablet) 10 meq PO QDAY [facility] Last Admin: 11/29/22 09:35 Dose: 10 meq Sodium Chloride (0.9 % Sodium Chloride 10 Ml Syringe) 10 ml IV Q8 [facility] Last Admin: 11/29/22 04:45 Dose: 10 ml A/P Narrative Plan of Treatment: Plan: Local wound care. D/W LOCO CONTRERAS. MIST treatment with VASHE today. Will debride the eschar at bedside tomorrow. Time Spent With Patient Time: Total time spent is greater than 50% in coordination of care (as documented) at patient's floor/unit and/or counseling patient: QUALITY VTE Deep Vein Thrombosis/Pulmonary Embolism Present on Admission: No
[2022-11-29] MEDS: METHOCARBAMOL 500 MG TABLET PO PRN ×2 (13:36→20:51)
[2022-11-29] MEDS ORDERED: HYDROCHLOROTHIAZIDE 25 MG TABLET PO SCH (13:52)
--- NOTE | 2022-11-29 16:18 | General Surgery Procedure Note ---
Date of procedure: Note initiated : 11/29/22 at 4:15 pm Service Date, if different from initiated Date: [] Pre-op diagnosis: chronic wounds both legs and DRY Necrotic eschar RIGHT lower joshi leg. Post-op diagnosis: same Procedure: Selective debridement with removal of eschar. Findings: Demarcated eschar after MIST treatment. Grafts/Implants: NONE Anesthesia: none Surgeon: Luciano Keith Estimated blood loss: 0 Pathology: none sent Description of procedure: Removal of eschar with cigar packer and picker and scissors. Selective debridement of wound bed. Condition: stable Disposition: PACU
--- NOTE | 2022-11-29 16:33 | Procedure Note ---
DATE OF PROCEDURE: 11/29/2022 PREOPERATIVE DIAGNOSES: Chronic wounds, both legs. Lower anterior left-sided wounds are mainly dry and epithelializing. Right-side wound with dry, necrotic eschar lower anterior third. POSTOPERATIVE DIAGNOSES: Chronic wounds, both legs. Lower anterior left-sided wounds are mainly dry and epithelializing. Right-side wound with dry, necrotic eschar lower anterior third. PROCEDURE: Selective debridement of the wound and removal of eschar SURGEON: Luciano Keith M.D. FINDINGS: Demarcated eschar after prior MIST treatments. Eschar dimension Approximately 6 x 6 CM ANESTHESIA: None. BLOOD LOSS: None. SPECIMENS: No specimen obtained for pathology. PROCEDURE NOTE IN DETAIL: After obtaining informed consent, the patient was in supine position on the bed. The right leg was cleaned, prepped, and the area was isolated. Using a pickup and scissors, careful removal of the eschar was carried out uneventfully. The remainder of the periwound soft tissue, slough and wound base was carefully debrided with pickups. Dressings consisted of bacitracin ointment, Adaptic gauze, Kerlix gauze and Dale bandages, respectively. VD:[email or web address] Job ID: [id number] Doc ID: [id number] Luciano Keith MD MTDD
[2022-11-29] MEDS: hydrALAZINE 20 MG/ML VIAL IV PRN (20:00)
[2022-11-30] MEDS: IPRATROPIUM/ALBUTEROL 3 ML AMPUL.NEB NEB SCH ×4 (00:58→18:58)
[2022-11-30] MEDS: niCARdipine 25 MG in 0.9 % SODIUM CHLORIDE 240 ML IV SCH ×2 (01:59→04:48)
[2022-11-30] MEDS: 0.9 % SODIUM CHLORIDE 10 ML SYRINGE IV SCH ×4 (02:40→20:53)
[2022-11-30] MEDS: PIPERACILLIN SODIUM/TAZOBACTAM 4.5 GM in DEXTROSE 5% IN WATER 50 ML IV SCH ×4 (02:40→20:52)
[2022-11-30] MEDS: oxyCODONE IR 5 MG TABLET PO PRN ×3 (02:44→17:58)
[2022-11-30] MEDS: HYDROmorphone 0.5 MG/0.5 ML SYRINGE IV PRN ×5 (04:04→23:55)
[2022-11-30 06:31] LABS: Basophils # (Auto) 0.06 K/mcL (0.00-0.30); Basophils % (Auto) 0.8 % (0.0-2.0); Eosinophils # (Auto) 0.32 K/mcL (0.00-0.70); Eosinophils % (Auto) 4.1 % (0.0-7.0); Hematocrit 31.5 % (34.1-44.9); Hemoglobin 8.9 g/dL (11.2-15.7); Lymphocytes # (Auto) 2.26 K/mcL (1.50-4.80); Lymphocytes % (Auto) 28.7 % (15.5-49.0); Mean Cell Volume 97.8 fL (80.0-100.0); Mean Corpuscular HGB Conc 28.3 g/dL (31.0-36.0); Mean Platelet Volume 9.7 fL (8.8-12.5); Monocytes # (Auto) 0.53 K/mcL (0.10-0.90); Monocytes % (Auto) 6.7 % (1.0-12.0); Neutrophils % (Auto) 54.9 % (38.0-78.0); Platelet Count 304 K/mcL (140-440); RBC 3.22 M/mcL (3.59-5.38); Red Cell Distribution Width 16.5 % (11.5-14.5); WBC 7.9 K/mcL (4.5-11.0)
[2022-11-30 07:21] LABS: ALT/SGPT 14 U/L (<40); AST/SGOT 17 U/L (<32); Albumin 2.9 gm/dL (3.2-5.2); Albumin/Globulin Ratio 0.8 (1.0-2.3); Alkaline Phosphatase 135 U/L (39-117); Bilirubin,Total 0.5 mg/dL (0.1-1.0); Blood Urea Nitrogen 20 mg/dL (6-20); Calcium 8.6 mg/dL (8.6-10.4); Carbon Dioxide 29 mmol/L (22-30); Chloride 101 mmol/L (96-108); Globulin 3.8 gm/dL (2.2-3.7); Glomerular Filtration Rate 74; Glucose 159 mg/dL (70-105)
[2022-11-30] MEDS: INSULIN LISPRO 1 UNIT/0.01 ML UNIT SQ SCH ×4 (07:38→20:51)
[2022-11-30] MEDS: FUROSEMIDE 20 MG TABLET PO SCH (07:38)
[2022-11-30] MEDS: metFORMIN 500 MG TAB.XL.24H PO SCH ×2 (07:38→20:51)
[2022-11-30] MEDS: CETIRIZINE 10 MG TABLET PO SCH (07:38)
[2022-11-30] MEDS: BISOPROLOL 5 MG TABLET PO SCH (07:39)
[2022-11-30] MEDS: POTASSIUM CHLORIDE 10 MEQ TABLET PO SCH (07:39)
[2022-11-30] MEDS: NYSTATIN CRM 1 DOSE TUBE TOPICAL SCH ×2 (07:40→20:52)
[2022-11-30] MEDS: BUDESONIDE 0.5 MG/2 ML AMPUL.NEB NEB SCH ×2 (07:45→19:00)
[2022-11-30] MEDS: HYDROCHLOROTHIAZIDE 12.5 MG CAPSULE PO SCH (07:47)
[2022-11-30] MEDS ORDERED: HYDROCHLOROTHIAZIDE 12.5 MG CAPSULE PO SCH ×2 (09:00)
[2022-11-30] MEDS ORDERED: amLODIPine 5 MG TABLET PO ONE (10:15)
--- NOTE | 2022-11-30 14:41 | Internal Med Progress Note ---
SUBJECTIVE Subjective Patient information: Note initiated : 11/30/22 at 2:39 pm Service Date, if different from initiated Date: [] Patient: Arik Sauer a 52 y/o F admitted on 11/27/22 for respiratory failure. Chief Complaint: [] Additional PMFSH (Level 3 Only): Ms. Sauer is a 52 year old female with history of COPD, ROXIE, chronic hypoxic respiratory failure on 2-3 L oxygen, pulmonary hypertension, chronic nonhealing lower extremity wounds, HFpEF, diabetes mellitus 2, hypertension. seronegative rheumatoid arthritis versus psoriatic arthritis, chronic pain, morbid obesity BMI over 44, mood disorder was last hospitalized in August 2022 for sepsis secondary to polymicrobial lower extremity cellulitis, wound culture grew MRSA, Pseudomonas aeruginosa along with other poorly microbes, bacteremia with Streptococcus pyogenes patient completed 14 days course of ceftriaxone per ID. Patient now presenting with not feeling well. She had been following up with wound clinic, Dr Keith, until 2-3 weeks ago. She was just discharged from SNF 2 weeks ago and home health nurse was to visit her however due to some confusion about her home address visiting nurse was not able to see her until 4 days ago. At that time according to patient visiting nurse unwrapped her wounds and advised her to go to ER however she did not have a ride at the time. However in the past few days she has not been feeling well she is feeling weak, drained and had been sweating profusely intermittently. She also reported some chills. She has obstructive sleep apnea and supposed to be on CPAP but has not used it for about a year now. She denied any fever, chest pain, palpitations, nausea, vomiting, shortness of breath, hemoptysis, sputum production. On presentation patient was hemodynamically stable. Patient legs were unwrapped and demonstrates chronic bilateral lower extremity wounds with some warmth. CT bilateral lower extremity obtained showed no evidence of osteomyelitis or abscess, cellulitic changes in the subcutaneous fat of calf and ankle. Labs showed normal white cell count of 8.7, chronic anemia with hemoglobin 9.7. VBG's with evidence of hypercapnia CO2 68, she had normal CO2 of 48 around 3 months ago concerning for acute change. hest x-ray showed moderate cardiomegaly unchanged, pulmonary vasculature was prominent and appeared somewhat congested, no pleural effusion. Possible mild CHF, small right basilar infiltrate. COVID and flu test negative. Her weakness may be secondary to hypercapnia. Blood cultures were obtained and patient was given ceftriaxone. Patient was placed on BiPAP. Patient will be admitted to PCU. 11/28. Patient reported she was on BiPAP until 5 AM this morning and then she removed it. Hemoglobin is down to 8.8 from 9.7 yesterday which is still her baseline range. ABG shows pH of 734, PCO2 of 57 improved from before. Patient has been noncompliant with her CPAP which was prescribed at for her ROXIE. Her acute kidney injury is improving creatinine down to 1.1 from 1.7 yesterday. RN reported patient is requesting Dilaudid every 4 hours. 11/29. Patient had really elevated blood pressure yesterday with systolic going into the high 200s, patient was started on nicardipine drip to control blood pressure. She was weaned off the drip this morning. Blood pressure is somewhat elevated with systolic in 140s despite receiving her hydrochlorothiazide bisoprolol and Lasix which was started this morning. Patient reports she is feeling well, no shortness of breath, no headache, no palpitations. Patient is awaiting for wound debridement 11/30. Patient is currently off nicardipine drip however her blood pressure is trending up. No chest pain or palpitation. Her antihypertensive will be ti trated up. She reported she used CPAP at nighttime and is feeling better now Review of system 14 point review of system completed and was negative except mentioned above Physical examination General Limitations: no limitations General appearance: Alert and awake, sitting up in bed, in no acute distress ENT ENT: Present normal oropharynx and mucous membranes moist Respiratory Respiratory: Present normal lung sounds bilaterally; Absent respiratory distress Cardiovascular Cardiovascular: Present regular rate and normal rhythm Adbominal Abdominal: Present soft; Absent tenderness Extremities Extremities: Present normal capillary refill Expanded Lower Extremity Bilateral lower extremities has multiple wounds which are covered in dressing Neurological Neurological: Present alert and oriented X3 Psychiatric Psychiatric: Present normal affect and normal mood Skin Skin: Present other (Per above under extremity evaluation) Assessment and plan #Acute respiratory failure with hypercapnia #COPD exacerbation, mild #Cellulitis left lower extremity and infected chronic nonhealing bilateral lower extremity wounds, status post selective debridement with removal of Aurelio Split by Dr. Keith on 11/29 #Acute kidney injury, creatinine 1.7 on admission, now back to baseline. #Type 2 diabetes mellitus, most recent HbA1c 7.8 #Hypertension, poorly controlled, increase hydrochlorothiazide to 25 mg daily and monitor blood pressure closely #HFpEF, chronic diastolic heart failure, acute exacerbation. BNP elevated at 2884. #Pulmonary hypertension, moderate 50-70 mmHg pulmonary artery pressure. CT chest with moderate enlargement of the central pulmonary arteries suggesting pulmonary hypertension. #Chronic hypoxia (2-3 L/min) #Seronegative rheumatoid arthritis vs psoriatic arthritis #Chronic pain, had been on opioids, weaned off #History of MRSA #ROXIE on CPAP, noncompliant with CPAP for over a year now #Noncompliance with medical therapy #Mood disorder, unspecified #Morbid obesity BMI 44, complicating all aspects of care, weight reduction advised Plan Respiratory failure is improving. Currently at baseline of 2 L nasal cannula oxygen. CPAP at bedtime and during naps DuoNebs, budesonide For cellulitis left lower extremity, patient on vancomycin per pharmacy and Zosyn. Patient with history of MRSA and Pseudomonas. Blood cultures negative to date CRP 5.4, ESR 58 Increase hydrochlorothiazide to 25 mg daily, continue home dose antihypertensives Medium dose insulin sliding scale Hold nephrotoxic's including ibuprofen Oxycodone and Dilaudid for back pain and lower extremity pain, encouraged her to minimize use of opioids PT and OT. CPAP at bedtime and during naps Diabetic diet DVT prophylaxis with SCDs Full code Total time> 50 minutes Constitutional Vitals: Vital Signs Temp Pulse Resp BP Pulse Ox O2 Del Method O2 Flow Rate 96.9 F L 67 26 H 147/59 99 Nasal Cannula 2 11/30/22 12:01 11/30/22 12:01 11/30/22 12:01 11/30/22 12:01 11/30/22 12:01 11/30/22 12:01 11/30/22 12:01 Period Temp Pulse Resp BP Sys/Bowie Pulse Ox O2 Del Method O2 Flow Rate Last 24 Hr 96.9 F-97.8 F 64-84 14-26 131-206/57-89 86-100 CPAP-Room Air 0.5-3 Intake and Output 11/30/22 11/30/22 11/30/22 03:59 11:59 19:59 Intake Total 1045 355 Output Total 2105 1050 Balance -1060 -695 Intake & Output: Intake & Output 0611/30/22 11/30/22 03:59 11:59 19:59 Intake Total 1045 355 Output Total 2107 8180 Balance -3005 -138 Intake: IV 445 355 Zosyn 4.5 gm In Dextrose 5% in 100 50 Water 50 ml @ 100 mls/hr IV Q6H [facility] Rx#:[id number] Cardene 25 MG In Sodium 345 305 Chloride 0.9% 240 ml @ 5 MG/HR 50 mls/hr IV UD [facility] Rx#: [id number] Oral 600 Output: Urine Catheter Amount 255 500 Void Amount 1150 550 Urine/Stool Mix 700 Other: Urine Appearance Clear Urine Color Yellow Stool Size Moderate Stool Color Brown Stool Consistency Loose # Bowel Movements 1 OBJ DATA Labs 11/30/22 05:25 11/30/22 05:25 Labs: Abnormal Lab Results 11/30/22 11/30/22 11/29/22 05:25 05:25 05:08 RBC 3.22 L Hgb 8.9 L Hct 31.5 L POC Hct MCHC 28.3 L RDW 16.5 H Immature Gran % (Auto) 4.8 H Immature Gran # 0.38 H ESR POC pH POC pCO2 POC HCO3 POC Total CO2 POC ABG Base Excess POC VBG pH POC VBG pCO2 at Temp POC VBG HCO3 POC VBG Total CO2 POC VBG Base Excess Potassium POC BUN BUN Creatinine POC Creatinine Glucose 159 H 145 H POC Glucose Calcium 8.3 L Alkaline Phosphatase 135 H 119 H C-Reactive Protein NT-Pro-B Natriuret Pep Albumin 2.9 L 2.7 L Globulin 3.8 H Albumin/Globulin Ratio 0.8 L 0.8 L 11/29/22 11/28/22 11/28/22 05:08 07:43 05:22 RBC 2.93 L Hgb 8.4 L Hct 28.0 L POC Hct MCHC 30.0 L RDW 16.7 H Immature Gran % (Auto) 2.1 H Immature Gran # 0.15 H ESR POC pH 7.34 L POC pCO2 57.3 H* POC HCO3 31.2 H POC Total CO2 33.0 H POC ABG Base Excess 5.0 H POC VBG pH POC VBG pCO2 at Temp POC VBG HCO3 POC VBG Total CO2 POC VBG Base Excess Potassium 3.2 L POC BUN BUN 25 H Creatinine POC Creatinine Glucose 159 H POC Glucose Calcium 8.3 L Alkaline Phosphatase 132 H C-Reactive Protein NT-Pro-B Natriuret Pep Albumin 2.7 L Globulin Albumin/Globulin Ratio 0.8 L 11/28/22 11/27/22 11/27/22 05:22 19:09 17:20 RBC 3.10 L Hgb 8.8 L Hct 29.8 L POC Hct MCHC 29.5 L RDW 16.7 H Immature Gran % (Auto) 1.3 H Immature Gran # 0.11 H ESR POC pH POC pCO2 POC HCO3 POC Total CO2 POC ABG Base Excess POC VBG pH POC VBG pCO2 at Temp POC VBG HCO3 POC VBG Total CO2 POC VBG Base Excess Potassium 3.0 L POC BUN BUN 35 H Creatinine 1.7 H POC Creatinine Glucose 186 H POC Glucose Calcium Alkaline Phosphatase 139 H C-Reactive Protein NT-Pro-B Natriuret Pep 2884.0 H Albumin Globulin 3.9 H Albumin/Globulin Ratio 0.8 L 11/27/22 11/27/22 11/27/22 15:10 15:07 09:00 RBC Hgb Hct POC Hct 29.0 L MCHC RDW Immature Gran % (Auto) Immature Gran # ESR POC pH POC pCO2 POC HCO3 POC Total CO2 POC ABG Base Excess POC VBG pH 7.26 L POC VBG pCO2 at Temp 68.0 H* POC VBG HCO3 30.6 H POC VBG Total CO2 33.0 H POC VBG Base Excess 4.0 H* Potassium POC BUN 33 H BUN Creatinine POC Creatinine 1.5 H Glucose POC Glucose 161 H Calcium Alkaline Phosphatase C-Reactive Protein 5.40 H NT-Pro-B Natriuret Pep Albumin Globulin Albumin/Globulin Ratio 11/27/22 09:00 RBC Hgb Hct POC Hct MCHC RDW Immature Gran % (Auto) Immature Gran # ESR 58 H POC pH POC pCO2 POC HCO3 POC Total CO2 POC ABG Base Excess POC VBG pH POC VBG pCO2 at Temp POC VBG HCO3 POC VBG Total CO2 POC VBG Base Excess Potassium POC BUN BUN Creatinine POC Creatinine Glucose POC Glucose Calcium Alkaline Phosphatase C-Reactive Protein NT-Pro-B Natriuret Pep Albumin Globulin Albumin/Globulin Ratio Meds: Medications Acetaminophen (Acetaminophen 325 Mg Tablet) 650 mg PO Q6HP PRN; Protocol PRN Reason: Per Pain Protocol Last Admin: 11/29/22 09:36 Dose: 650 mg Albuterol/Ipratropium (Ipratropium/Albuterol 3 Ml Ampul.Neb) 3 ml NEB Q6HRT [facility] Last Admin: 11/30/22 12:50 Dose: 3 ml Amlodipine Besylate (Amlodipine 5 Mg Tablet) 5 mg PO DAILY [facility] Bisoprolol Fumarate (Bisoprolol 5 Mg Tablet) 10 mg PO DAILY [facility] Last Admin: 11/30/22 07:39 Dose: 10 mg Budesonide (Budesonide 0.5 Mg/2 Ml Ampul.Neb) 0.5 mg NEB Q12 [facility] Last Admin: 11/30/22 07:45 Dose: 0.5 mg Cetirizine HCl (Cetirizine 10 Mg Tablet) 10 mg PO QDAY [facility] Last Admin: 11/30/22 07:38 Dose: 10 mg Dextrose (Dextrose 50% 50 Ml Vial) 0 ml IV UD PRN PRN Reason: Per Sliding Scale Diagnostic Test (Pha) (Accu-Chek 1 Each Strip) 1 each FS ACHS [facility] Last Admin: 11/30/22 11:43 Dose: 1 each Furosemide (Furosemide 20 Mg Tablet) 20 mg PO DAILY [facility] Last Admin: 11/30/22 07:38 Dose: 20 mg Glucose (Dextrose 31 Gm Oral.Susp) 15 gm PO PRN PRN PRN Reason: Hypoglycemia Hydralazine HCl (Hydralazine 20 Mg/Ml Vial) 10 mg IV Q4HP PRN PRN Reason: Hypertension Last Admin: 11/29/22 20:00 Dose: 10 mg Hydrochlorothiazide (Hydrochlorothiazide 12.5 Mg Capsule) 25 mg PO DAILY [facility] Last Admin: 11/30/22 07:47 Dose: 25 mg Hydrocortisone (Hydrocortisone Crm 1% Tube 30gm) 0 dose TOPICAL BIDP PRN PRN Reason: itching Hydromorphone HCl (Hydromorphone 0.5 Mg/0.5 Ml Syringe) 0.5 mg IV Q4HP PRN; Protocol PRN Reason: Per Pain Protocol Last Admin: 11/30/22 07:56 Dose: 0.5 mg Piperacillin Sod/Tazobactam (Sod 4.5 gm/ Dextrose) 50 mls @ 100 mls/hr IV Q6H [facility]; Protocol Last Infusion: 11/30/22 10:19 Dose: Infused Nicardipine HCl 25 mg/ Sodium (Chloride) 250 mls @ 50 mls/hr IV UD [facility]; Protocol Last Titration: 11/30/22 08:30 Dose: 0 mg/hr, 0 mls/hr Insulin Human Lispro (Insulin Lispro 1 Unit/0.01 Ml Unit) 0 unit SQ ACHS [facility]; Protocol Last Admin: 11/30/22 11:47 Dose: 2 unit Magnesium Hydroxide (Magnesium Hydroxide 30 Ml Oral.Susp) 30 ml PO DAILYP PRN PRN Reason: Constipation Metformin HCl (Metformin 500 Mg Tab.Xl.24h) 1,000 mg PO BID [facility] Last Admin: 11/30/22 07:38 Dose: 1,000 mg Methocarbamol (Methocarbamol 500 Mg Tablet) 500 mg PO TIDP PRN PRN Reason: Muscle Spasm Last Admin: 11/29/22 20:51 Dose: 500 mg Nystatin (Nystatin Crm 1 Dose Tube) 1 dose TOPICAL BID [facility] Last Admin: 11/30/22 07:40 Dose: Not Given Ondansetron HCl (Ondansetron 4 Mg Odt Tablet) 4 mg PO Q4HP PRN PRN Reason: Nausea And Vomiting Ondansetron HCl (Ondansetron 4 Mg/2 Ml Vial) 4 mg IV Q4HP PRN; Protocol PRN Reason: Nausea And Vomiting Oxycodone HCl (Oxycodone Ir 5 Mg Tablet) 10 mg PO Q6HP PRN PRN Reason: Pain Last Admin: 11/30/22 11:47 Dose: 10 mg Potassium Chloride (Potassium Chloride 10 Meq Tablet) 10 meq PO QDAY [facility] Last Admin: 11/30/22 07:39 Dose: 10 meq Sodium Chloride (0.9 % Sodium Chloride 10 Ml Syringe) 10 ml IV Q8 [facility] Last Admin: 11/30/22 04:04 Dose: 10 ml A/P Narrative Plan of Treatment: Plan: Local wound care. D/W LOCO CONTRERAS. MIST treatment with VASHE today. Will debride the eschar at bedside tomorrow. Time Spent With Patient Time: Total time spent is greater than 50% in coordination of care (as documented) at patient's floor/unit and/or counseling patient: QUALITY VTE Deep Vein Thrombosis/Pulmonary Embolism Present on Admission: No
[2022-11-30] MEDS ORDERED: amLODIPine 10 MG TABLET PO ONE (16:35)
[2022-11-30] MEDS: ACETAMINOPHEN 325 MG TABLET PO PRN ×2 (16:41→23:55)
[2022-11-30] MEDS: METHOCARBAMOL 500 MG TABLET PO PRN (16:42)
[2022-12-01] MEDS: IPRATROPIUM/ALBUTEROL 3 ML AMPUL.NEB NEB SCH ×2 (00:18→07:08)
[2022-12-01] MEDS: PIPERACILLIN SODIUM/TAZOBACTAM 4.5 GM in DEXTROSE 5% IN WATER 50 ML IV SCH ×2 (03:22→09:34)
[2022-12-01] MEDS: oxyCODONE IR 5 MG TABLET PO PRN ×2 (03:51→10:17)
[2022-12-01] MEDS: HYDROmorphone 0.5 MG/0.5 ML SYRINGE IV PRN ×2 (05:41→10:22)
[2022-12-01] MEDS: 0.9 % SODIUM CHLORIDE 10 ML SYRINGE IV SCH (05:41)
[2022-12-01 06:41] LABS: Basophils # (Auto) 0.05 K/mcL (0.00-0.30); Basophils % (Auto) 0.7 % (0.0-2.0); Eosinophils # (Auto) 0.34 K/mcL (0.00-0.70); Eosinophils % (Auto) 4.9 % (0.0-7.0); Hematocrit 30.6 % (34.1-44.9); Lymphocytes # (Auto) 2.56 K/mcL (1.50-4.80); Lymphocytes % (Auto) 36.5 % (15.5-49.0); Mean Cell Volume 94.4 fL (80.0-100.0); Mean Corpuscular HGB Conc 29.4 g/dL (31.0-36.0); Mean Platelet Volume 9.7 fL (8.8-12.5); Monocytes # (Auto) 0.45 K/mcL (0.10-0.90); Monocytes % (Auto) 6.4 % (1.0-12.0); Neutrophils % (Auto) 48.6 % (38.0-78.0); Platelet Count 359 K/mcL (140-440); RBC 3.24 M/mcL (3.59-5.38); Red Cell Distribution Width 16.5 % (11.5-14.5)
[2022-12-01 07:04] LABS: ALT/SGPT 14 U/L (<40); AST/SGOT 13 U/L (<32); Albumin/Globulin Ratio 0.8 (1.0-2.3); Alkaline Phosphatase 145 U/L (39-117); Bilirubin,Total 0.5 mg/dL (0.1-1.0); Blood Urea Nitrogen 24 mg/dL (6-20); Carbon Dioxide 34 mmol/L (22-30); Chloride 99 mmol/L (96-108); Globulin 3.6 gm/dL (2.2-3.7); Glomerular Filtration Rate 65; Glucose 121 mg/dL (70-105)
[2022-12-01] MEDS: BUDESONIDE 0.5 MG/2 ML AMPUL.NEB NEB SCH (07:07)
[2022-12-01] MEDS: POTASSIUM CHLORIDE 10 MEQ TABLET PO SCH (07:55)
[2022-12-01] MEDS: FUROSEMIDE 20 MG TABLET PO SCH (07:55)
[2022-12-01] MEDS: hydrALAZINE 20 MG/ML VIAL IV PRN (07:55)
[2022-12-01] MEDS: CETIRIZINE 10 MG TABLET PO SCH (07:56)
[2022-12-01] MEDS: NYSTATIN CRM 1 DOSE TUBE TOPICAL SCH (07:56)
[2022-12-01] MEDS: metFORMIN 500 MG TAB.XL.24H PO SCH (07:56)
[2022-12-01] MEDS: HYDROCHLOROTHIAZIDE 12.5 MG CAPSULE PO SCH (07:56)
[2022-12-01] MEDS: BISOPROLOL 5 MG TABLET PO SCH (07:56)
[2022-12-01] MEDS: INSULIN LISPRO 1 UNIT/0.01 ML UNIT SQ SCH ×2 (08:09→13:31)
[2022-12-01] MEDS ORDERED: amLODIPine 5 MG TABLET PO SCH (09:00)
[2022-12-01] MEDS ORDERED: LISINOPRIL 20 MG TABLET PO SCH (09:00)
[2022-12-01] MEDS ORDERED: amLODIPine 10 MG TABLET PO SCH (09:00)
[2022-12-01] MEDS: METHOCARBAMOL 500 MG TABLET PO PRN (09:34)
--- NOTE | 2022-12-01 10:09 | General Surgery Progress Note ---
SUBJECTIVE Subjective Patient information: Note initiated : 12/01/22 at 10:01 am Service Date, if different from initiated Date: [] Patient: Arik Sauer 52 y/o F admitted on 11/27/22 for respiratory failure. Chief Complaint: [] Additional PMFSH (Level 3 Only): Patient seen along with nurse in ICU 120/C. Wound care continuation after d/c planning was reviewed. Updated Dr. Hannah MD Hospitalist. Constitutional Vitals: Vital Signs Temp Pulse Resp BP Pulse Ox O2 Del Method O2 Flow Rate 97 F 74 15 189/74 96 Nasal Cannula 2 12/01/22 08:01 12/01/22 08:05 12/01/22 08:05 12/01/22 08:01 12/01/22 08:05 12/01/22 08:01 12/01/22 08:01 Period Temp Pulse Resp BP Sys/Bowie Pulse Ox O2 Del Method O2 Flow Rate Last 24 Hr 96.9 F-98.2 F 59-83 13-97 113-189/48-84 60-100 CPAP-Nasal Cannula 1-2 Intake and Output 11/30/22 12/01/22 12/01/22 19:59 03:59 11:59 Intake Total 50 270 470 Output Total 1400 1400 Balance -1350 -1130 470 Weight 265 lb 1.6 oz Intake & Output: Intake & Output 11/30/22 12/01/22 12/01/22 19:59 03:59 11:59 Intake Total 50 270 470 Output Total 1400 1400 Balance -1350 -1130 470 Weight 265 lb 1.6 oz Intake: IV 50 50 50 Zosyn 4.5 gm In Dextrose 5% in 50 50 50 Water 50 ml @ 100 mls/hr IV Q6H [facility] Rx#:[id number] Oral 220 420 Output: Void Amount 1400 1400 Other: Urine Appearance Clear Clear Urine Color Pale Yellow Stool Size Smear Moderate Stool Color Brown Brown Stool Consistency Soft Liquid Watery Loose # Bowel Movements 1 1 1 # of times incontinent of 1 Bowels Exam: AVSS, Comfortable, Conversational, VSS Blood pressure medication adjustment is ongoing. NOT on systemic antibiotics at this time. Local wound care ic ongoing. (VASHE, Bacitracin, Kerlix and CARMEN both legs) A/P Narrative A/P Narrative: Assessment: Satisfactory progress from wound care point of view. Continue ongoing treatment. Plan of Treatment: Plan: Continue Local wound care. D/W LOCO CONTRERAS. MIST treatment with VASHE today. Will debride the eschar at bedside tomorrow. Time Spent With Patient Time: Total time spent is greater than 50% in coordination of care (as documented) at patient's floor/unit and/or counseling patient:
--- NOTE | 2022-12-01 11:44 | Discharge Summary ---
Discharge Provider Provider IMPORTANT FOLLOW-UP INFORMATION FOR PCP: Patient information: Note initiated : 12/01/22 at 11:37 am Service Date, if different from initiated Date: [] Patient: Arik Sauer 52 y/o F admitted on 11/27/22 for respiratory failure. Chief Complaint: [] Date of admission: 11/27/22 18:53 Discharge date: 12/01/22 Consults: 11/27/22 Consult to Physician [CONS] Stat Comment: Chronic bilateral lower extremity wounds. Consulting Provider: Luciano Keith Reason For Exam: Physician to Consult Consult to Physician [CONS] Stat Comment: Consulting Provider: Emmanuel Young Reason For Exam: Physician to Consult COURSE Hospital Course Hospital course: Ms. Sauer is a 52 year old female with history of COPD, ROXIE, chronic hypoxic respiratory failure on 2-3 L oxygen, pulmonary hypertension, chronic nonhealing lower extremity wounds, HFpEF, diabetes mellitus 2, hypertension. seronegative rheumatoid arthritis versus psoriatic arthritis, chronic pain, morbid obesity BMI over 44, mood disorder was last hospitalized in August 2022 for sepsis secondary to polymicrobial lower extremity cellulitis, wound culture grew MRSA, Pseudomonas aeruginosa along with other poorly microbes, bacteremia with Streptococcus pyogenes patient completed 14 days course of ceftriaxone per ID. Patient now presenting with not feeling well. She had been following up with wound clinic, Dr Keith, until 2-3 weeks ago. She was just discharged from SNF 2 weeks ago and home health nurse was to visit her however due to some confusion about her home address visiting nurse was not able to see her until 4 days ago. At that time according to patient visiting nurse unwrapped her wounds and advised her to go to ER however she did not have a ride at the time. However in the past few days she has not been feeling well she is feeling weak, drained and had been sweating profusely intermittently. She also reported some chills. She has obstructive sleep apnea and supposed to be on CPAP but has not used it for about a year now. She denied any fever, chest pain, palpitations, nausea, vomiting, shortness of breath, hemoptysis, sputum production. On presentation patient was hemodynamically stable. Patient legs were unwrapped and demonstrates chronic bilateral lower extremity wounds with some warmth. CT bilateral lower extremity obtained showed no evidence of osteomyelitis or abscess, cellulitic changes in the subcutaneous fat of calf and ankle. Labs showed normal white cell count of 8.7, chronic anemia with hemoglobin 9.7. VBG's with evidence of hypercapnia CO2 68, she had normal CO2 of 48 around 3 months ago concerning for acute change. hest x-ray showed moderate cardiomegaly unchanged, pulmonary vasculature was prominent and appeared somewhat congested, no pleural effusion. Possible mild CHF, small right basilar infiltrate. COVID and flu test negative. Her weakness may be secondary to hypercapnia. Blood cultures were obtained and patient was given ceftriaxone. Patient was placed on BiPAP. Patient will be admitted to PCU. 11/28. Patient reported she was on BiPAP until 5 AM this morning and then she removed it. Hemoglobin is down to 8.8 from 9.7 yesterday which is still her baseline range. ABG shows pH of 734, PCO2 of 57 improved from before. Patient has been noncompliant with her CPAP which was prescribed at for her ROXIE. Her acute kidney injury is improving creatinine down to 1.1 from 1.7 yesterday. RN reported patient is requesting Dilaudid every 4 hours. 11/29. Patient had really elevated blood pressure yesterday with systolic going into the high 200s, patient was started on nicardipine drip to control blood pressure. She was weaned off the drip this morning. Blood pressure is somewhat elevated with systolic in 140s despite receiving her hydrochlorothiazide bisoprolol and Lasix which was started this morning. Patient reports she is feeling well, no shortness of breath, no headache, no palpitations. Patient is awaiting for wound debridement 11/30. Patient is currently off nicardipine drip however her blood pressure is trending up. No chest pain or palpitation. Her antihypertensive will be titrated up. She reported she used CPAP at nighttime and is feeling better now 12/01. Patient feels well. Blood pressure has been difficult to control however it is now improving after addition of amlodipine and lisinopril and increasing dose of hydrochlorothiazide. Patient is wanting to go home. Physical examination General Limitations: no limitations General appearance: Alert and awake, sitting up comfortably ENT ENT: Present normal oropharynx and mucous membranes moist Respiratory Respiratory: Present normal lung sounds bilaterally; Absent respiratory distress Cardiovascular Cardiovascular: Present regular rate and normal rhythm Adbominal Abdominal: Present soft; Absent tenderness Extremities Extremities: Present normal capillary refill Expanded Lower Extremity Bilateral lower extremities has multiple wounds which are covered in dressing Neurological Neurological: Present alert and oriented X3 Psychiatric Psychiatric: Present normal affect and normal mood Skin Skin: Present other (Per above under extremity evaluation) Assessment and plan #Acute respiratory failure with hypercapnia, ABG showed improvement. Patient has some baseline hypercapnia. Patient received treatment for COPD exacerbation. Counseled on strict compliance with CPAP #COPD exacerbation, mild, managed with DuoNebs and budesonide. Prescription given for her nebulization therapy upon discharge #Cellulitis left lower extremity and infected chronic nonhealing bilateral lower extremity wounds, status post selective debridement with removal of eschar by Dr. Keith on 11/29. Patient received vancomycin and Zosyn for history of MRSA and Pseudomonas. Blood cultures negative to date. CRP 5.4, ESR 58. Will be discharged on course of Augmentin. #Acute kidney injury, creatinine 1.7 on admission, now back to baseline. Recommend BMP in 1 week #Type 2 diabetes mellitus, most recent HbA1c 7.8. Counseled on weight loss and healthy lifestyle changes #Poorly controlled hypertension with hypertensive urgency. Blood pressure improving. On hydrochlorothiazide 25 mg daily, amlodipine 10 mg daily, lisinopril 20 mg twice daily, bisoprolol 10 mg #HFpEF, chronic diastolic heart failure, acute exacerbation. BNP elevated at 2884. #Pulmonary hypertension, moderate 50-70 mmHg pulmonary artery pressure. CT chest withmoderate enlargement of the central pulmonary arteries suggesting pulmonary hypertension. #Chronic hypoxia (2-3 L/min) #Seronegative rheumatoid arthritis vs psoriatic arthritis #Chronic pain, had been on opioids, weaned off #History of MRSA #ROXIE on CPAP, noncompliant with CPAP for over a year now. Counseled on compliance. Patient used CPAP in house and felt great. She is now determined to use it every night. Recommend CPAP at bedtime and during naps #Noncompliance with medical therapy, counseled and more receptive now #Mood disorder, unspecified #Morbid obesity BMI 44, complicating all aspects of care, weight reduction advised Full code Total time> 50 minutes Discharge diagnosis: COPD exacerbation, respiratory failure with hypercapnia, cellulitis, ADRIANE Time Spent with Patient Time attestation: Total time spent providing and/or coordinating discharge services: Time spent: Greater than 30 minutes EXAM Constitutional Vitals: Temp Pulse Resp BP Pulse Ox O2 Del Method O2 Flow Rate 97 F 71 25 H 175/68 99 Nasal Cannula 2 12/01/22 08:01 12/01/22 10:26 12/01/22 10:26 12/01/22 10:01 12/01/22 10:26 12/01/22 10:01 12/01/22 10:01 Discharge Data Data Completed and Pending Labs on day of discharge: Labs from last 24 hours 12/01/22 12/01/22 05:24 05:24 WBC 7.0 RBC 3.24 L Hgb 9.0 L Hct 30.6 L MCV 94.4 MCH 27.8 MCHC 29.4 L RDW 16.5 H Plt Count 359 MPV 9.7 Immature Gran % (Auto) 2.9 H Neut % (Auto) 48.6 Lymph % (Auto) 36.5 Calhoun % (Auto) 6.4 Eos % (Auto) 4.9 Baso % (Auto) 0.7 Lymph # (Auto) 2.56 Calhoun # (Auto) 0.45 Eos # (Auto) 0.34 Baso # (Auto) 0.05 Immature Gran # 0.20 H Absolute Neutrophils 3.41 Sodium 141 Potassium 3.9 Chloride 99 Carbon Dioxide 34 H Anion Gap 8.0 BUN 24 H Creatinine 1.0 GFR Calculation 65 Glucose 121 H Calcium 9.0 Total Bilirubin 0.5 AST 13 ALT 14 Alkaline Phosphatase 145 H Total Protein 6.6 Albumin 3.0 L Globulin 3.6 Albumin/Globulin Ratio 0.8 L Preliminary micro results at discharge 11/27/22 09:07 Blood Culture - Preliminary Blood 11/27/22 09:00 Blood Culture - Preliminary Blood Discharge Plan Patient/Caregiver Discharge Instructions Activity: resume usual activities as tolerated Diet: Low Sodium (2gm) Instructions: Lisinopril (By mouth), Hydrochlorothiazide (By mouth), Amoxicillin (By mouth), Amlodipine (By mouth), Metformin (By mouth), Bisoprolol (By mouth), Sleep Apnea (GEN), Cellulitis (GEN), Hypertension (GEN), Hypoxia (GEN), CPAP (GEN) Activity Restrictions/Additional Instructions: Follow-up wound care: Dr. Keith's office will contact you to schedule an appointment. Please call if they do not contact you within 2 days. Resume activity as tolerated. Continue with a consistent carbohydrate and low sodium diet. [facility] will contact you to schedule an appointment. Wound Care Instructions: Wash leg with Vashe, apply Bacitracin Ointment, Gauze Wrap and Dale Wrap. Change every two days. Spnge baths only. Follow up at Wound Clinic within 1 week. Your prescriptions have been electronically sent to [facility]. This discharge packet is provided to you to help keep you informed about your care. We want to ensure you get everything you need when you go home. You will also be receiving a call from us in a few days to follow up with you and see how you are doing since your discharge. This gives us a chance to listen to any concerns you maybe experiencing since you were discharged or any additional needs you may have, as well as providing us feedback on your care experience. We strive to always provide excellent care and thank you for your feedback and for choosing [facility]. Prescriptions: New bisoprolol fumarate 5 mg Tablet 10 mg PO DAILY Qty: 60 0RF amlodipine 10 mg Tablet 10 mg PO DAILY Qty: 30 0RF hydrochlorothiazide 25 mg tablet 25 mg PO DAILY Qty: 30 0RF amoxicillin-pot clavulanate 875-125 mg tablet 1 tab PO BID Qty: 8 0RF metformin 500 mg Tablet Extended Release 24 Hr 1,000 mg PO BID Qty: 60 0RF lisinopril 20 mg tablet 20 mg PO BID Qty: 60 0RF Continued cetirizine 10 mg tablet 10 mg PO QDAY albuterol sulfate [Proventil HFA] 90 mcg/actuation HFA aerosol inhaler 2 puff INHALATION Q6H PRN (Reason: Shortness Of Breath) acetaminophen 325 mg Tablet 650 mg PO Q4HP PRN (Reason: Pain) miconazole nitrate [Antifungal (miconazole)] 2 % Powder 1 applic TOPICAL BID Rx Instructions: Apply to under pannus and breast topically two times a day for redness under pannus and breast. Cleanse with NS, dry, then apply powder methocarbamol 500 mg Tablet 500 mg PO TID furosemide 20 mg Tablet 20 mg PO DAILY Multiple Vitamin-Minerals Tablet 1 tab PO DAILY oxycodone 5 mg Tablet 15 mg PO Q4HP PRN (Reason: Pain) potassium chloride 10 mEq Capsule, Extended Release 10 meq PO QDAY Discontinued ibuprofen 800 mg tablet 600 - 800 mg PO Q6 PRN (Reason: Pain) bisoprolol-hydrochlorothiazide 10-6.25 mg tablet 1 tab PO QDAY Follow Up Plan Follow up with: Reanna Morris PA-C [Physician] - 12/07/22 9:00 am Luciano Keith MD [Physician] - (The wound clinic will contact you to schedule an appointment. ) Patient Disposition: Home, Self-Care Plan of Treatment: Plan: Continue Local wound care. D/W LOCO CONTRERAS. MIST treatment with VASHE today. Will debride the eschar at bedside tomorrow. Prognosis: Fair Overall status at discharge: patient is back to baseline Discharge Orders: Discharge Order (Routine); Ordered 12/01/22 Ordered By: Emmanuel MENA VTE Deep Vein Thrombosis/Pulmonary Embolism Present on Admission: No
--- NOTE | 2022-12-02 16:06 | EKG ---
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 Measurements Intervals [place]ult Rate: 59 P: 57 TN: 151 QRS: 63 QRSD: 113 T: -18 QT: 396 QTc: 393 Interpretive Statements Sinus rhythm Incomplete right bundle branch block Electronically Signed On 12-02-2022 16:06:27 PDT by Alexandro Wood M.D. /[id number]
--- NOTE | 2022-12-02 16:09 | EKG ---
[facility] Test Date: 2022-11-28 Pat Name: Arik Sauer Department: ICU Room: 120C Gender: Female Counter Checker: : 1970 Requested By: Emmanuel Young Order Number: [id number] Reading MD: Alexandro Wood M.D. Measurements Intervals [place] Rate: 103 P: 58 [place]: 158 QRS: 30 QRSD: 102 T: 258 QT: 366 QTc: 481 Interpretive Statements Sinus tachycardia Probable left atrial enlargement INCOMPLETE RIGHT BUNDLE BRANCH BLOCK REPOLARIZATION ABNORMALITIES SUGGEST inferolateral ischemia. Electronically Signed On 12-02-2022 16:09:40 PDT by Alexandro Wood M.D. /[id number]
== END 2022-12-01 14:05 | disposition home or self-care (01) | DRG 190 ==
LOC: ED 07:27 → ICU 18:53
PROVIDERS: ADMIT Internal Medicine; ATTEND Internal Medicine